=== PATIENT | male | born 1945 | race Caucasian/White ===

== ENCOUNTER 2023-12-19 17:28 | Inpatient (IN) | payer MEDICARE, BC, SELFPAY ==
[2023-12-19 17:34] VITALS: BP 128/91
[2023-12-19 17:47] VITALS: BP 95/74
[2023-12-19 18:01] LABS: Hematocrit 34.5 % (39.0-52.0); Hemoglobin 12.3 g/dL (13.0-18.0); Mean Corp Hgb Conc. 35.7 g/dL (33.0-37.0); Mean Corpuscular Hgb 32.4 pg (27.0-31.0); Mean Corpuscular Volume 90.8 fL (80.0-94.0); Mean Platelet Volume 9.5 fL (7.4-10.4); Platelet Count 255 10^3/uL (130-400); Red Cell Dist. Width 13.5 % (11.5-14.5); White Blood Cell Count 10.5 10^3/uL (4.8-10.8)
[2023-12-19 18:11] LABS: INR 1.11; PT 14.4 Sec (11.4-14.6)
[2023-12-19 18:13] LABS: APTT 40.7 Sec (23.4-35.0)
[2023-12-19 18:15] LABS: ALT (SGPT) 44 U/L (0-50); AST (SGOT) 46 U/L (17-59); Albumin 2.6 g/dl (3.5-5.0); Alkaline Phosphatase 85 U/L (38-126); Blood Urea Nitrogen 11 mg/dl (9-20); Calcium 8.5 mg/dl (8.4-10.2); Carbon Dioxide 29 mmol/L (22-30); Chloride 102 mmol/L (98-107); Direct Bilirubin 0.5 mg/dl (0.0-0.4); Glucose 154 mg/dl (70-99); Sodium 135 mmol/L (135-145); Total Bilirubin 0.8 mg/dl (0.2-1.3); Total Protein 5.8 g/dl (6.3-8.2); eGFR > 60.00
--- NOTE | 2023-12-19 18:19 | HPS.HSE ---
Family Physician
-
Family Physician: Bob Brunner
Chief Complaint
-
anorexia, weight loss and left leg pain
History of Present Illness
Mr. Khalil is a 78-year-old [id number] male with a past medical history significant for mitral regurgitation, coronary artery disease with stents, and diabetes who was in usual state of health until August when he noted
unintentional weight loss and anorexia. He was seen at the ID and was scheduled for colonoscopy and endoscopy this coming January. Patient denies fever, chills, nausea, vomiting, black tarry stools. Patient's last dental cleaning was in October 2023.
By December, patient reports a total of 30 pound weight loss, with continued anorexia and left leg pain. He was seen by his clutch mechanic, Dr. Weinstein, who recommended evaluation at [facility]. Patient was admitted to [facility] on
12/17/2023. Initial WBC was 17.1. Blood cultures were sent. No by report was available in transfer records. Patient reported sensitivity of his left great toe and ultrasound of left lower extremity was negative for DVT. A RICHARD was performed on
12/18 and reported EF of 60 to 65%, no left atrial appendage thrombus, and moderate mitral regurgitation. There is a 1.6 cm mobile mass noted on the anterior mitral valve leaflet prolapsing into the left atrium with a smaller mass noted on the
posterior leaflet. There was mild tricuspid regurgitation, no aortic stenosis and no aortic insufficiency. Patient was treated with vancomycin, ampicillin, and rifampin. Patient was transferred to [facility] 12/18 for further evaluation of
mitral valve endocarditis. Patient recalls left last heart catheterization performed in 2012.
Medical History
Past Medical History
Past Medical History: Reports CAD (prior stent (pt unable to recall vessel)), NIDDM (x 20+ years on insulin) and Valvular Disease (mitral regurgitation)
Past Surgical History: Reports Other (L total knee arthroscopy)
Social History
Tobacco: Former Smoker (quit 30 years ago)
Alcohol: None
Drug: None
Personal:
Living: With Family
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
Family History
Family History: Not pertinent
Allergies / Home Medications
Allergies reflects when Allergies were last updated in [employer].
Home Medications with original date entered in [employer]
Allergy/Medication List:
NKDA
Review of Systems
-
History Source: Patient
Constitutional: Reports See HPI
EENT: Reports No Symptoms
Respiratory: Reports No Symptoms
Cardiac: Reports No Symptoms
Abdomen/GI: Reports No Symptoms
: Reports No Symptoms
Musculoskeletal: Reports No Symptoms
Skin: Reports Other (left great toe sensitive)
Neurological: Reports No Symptoms
Endocrine: Reports No Symptoms
Hematologic/Lymphatic: Reports No Symptoms
Psych: Reports No Symptoms
Physical Exam
Vital Signs
Vital Signs
Temp Pulse Resp BP Pulse Ox
98.3 F 82 20 95/74 97
12/19/23 17:32 12/19/23 17:47 12/19/23 17:32 12/19/23 17:47 12/19/23 17:32
Physical Exam
General: No Apparent Distress, Comfortable, Conversant and Poor Appetite
HEENT: NormoCephalic, Anicteric, Moist mucous membranes, Good Dentition, Lamy Conjunctivae, No Ptosis, Nose Appears Normal, Ears Appear Normal and Neck Nontender
Respiratory: Clear
Cardiac: S1/S2, Regular Rhythm and Murmur (II/ HSM LSB 5th ICS>axillae)
Breast: N/A
GI: Soft, Non Tender, Non Distended, Normal Bowel Sounds and No Hepatosplenomegaly
Rectal: Deferred by Provider
Genito-urinary: Deferred by me
Musculoskeletal: No Clubbing, No Cyanosis, No Edema and Other (Left PT +1; no left great toe redness, only sensitivity)
Skin: Warm and Dry
Neuro: AO x 3, No Motor Deficits, Nonfocal/grossly intact and No Sensory Deficits
Hematologic/Lymphatic: No Lymphadenopathy
Psych: Calm and Intact Judgment/Insight
Laboratory Results
-
12/19/23 17:55
12/19/23 17:55
Laboratory Results
Total Bilirubin 0.8 mg/dl (0.2-1.3) 12/19/23 17:55
AST 46 U/L (17-59) 12/19/23 17:55
ALT 44 U/L (0-50) 12/19/23 17:55
Alkaline Phosphatase 85 U/L (38-126) 12/19/23 17:55
Data Reviewed
-
Diagnostic Radiology: Report Reviewed by me and Discussed with Physician
Ultrasound: Report Reviewed by me and Discussed with Physician
Lab Data: Discussed with Physician and Discussed with Nurse
Old Records: Reviewed
Impression/Plan
-
IMPRESSION:
78-year-old male with known coronary disease and diabetes, was transferred from [facility] on 12/19/2023 with mitral valve vegetation and moderate mitral regurgitation.
PLAN:
- Surgeon to review echo imaging and formulate plan with consultants and patient
- Follow-up on blood culture results from [facility] micro lab
- Consult to infectious disease
- Consult to CBC cardiology
- Probable need for preop cardiac catheterization
- routine pre op diagnostic studies ordered
[2023-12-19 18:32] LABS: Glucose - Point of Care 162 mg/dl (70-99)
[2023-12-19 18:59] VITALS: BP 119/71
[2023-12-19] MEDS: SENOKOT-S 1 TABLET PO (19:48)
[2023-12-19] MEDS: HEPARIN 5000 UNITS SC (19:48)
[2023-12-19] MEDS: TOPROL XL 12.5 MG PO (20:00)
[2023-12-19] MEDS: ROCEPHIN 2000 MG IV (20:58)
[2023-12-19] MEDS: STERILE WATER FOR INJECTION 20 ML IV (20:58)
[2023-12-19] MEDS: AMPICILLIN 108 MG IV (21:13)
[2023-12-19 22:26] VITALS: BP 110/62
[2023-12-19 22:26] LABS: Glucose - Point of Care 175 mg/dl (70-99)
--- NOTE | 2023-12-19 22:40 | PTCARENOTE ---
Received pt at handoff. AOX4. Tele- SR/ST. HR 80-100s. Assessment noted as documented. Pt c/o weakness. Ambulatory w/ an assist x1. Pt taken to CXR/panelipse via wheelchair and nursing staff. Pt w/ non-prod freq. cough. Sating 96% RA. Currently in
bed; call deshpande w/in reach.
[2023-12-20] VITALS (12 sets, daily range): BP systolic 87–122; BP diastolic 51–81; BMI 22.4
[2023-12-20] MEDS: HEPARIN 5000 UNITS SC ×3 (00:38→16:47)
[2023-12-20] MEDS: AMPICILLIN 108 MG IV ×3 (04:03→14:59)
[2023-12-20 05:00] LABS: Hematocrit 34.3 % (39.0-52.0); Hemoglobin 11.8 g/dL (13.0-18.0); Mean Corp Hgb Conc. 34.4 g/dL (33.0-37.0); Mean Corpuscular Hgb 32.2 pg (27.0-31.0); Mean Corpuscular Volume 93.5 fL (80.0-94.0); Mean Platelet Volume 9.8 fL (7.4-10.4); Platelet Count 260 10^3/uL (130-400); Red Blood Cell Count 3.67 10^6/uL (4.70-6.10); Red Cell Dist. Width 13.4 % (11.5-14.5); White Blood Cell Count 13.3 10^3/uL (4.8-10.8)
[2023-12-20 05:20] LABS: Blood Urea Nitrogen 12 mg/dl (9-20); Calcium 8.8 mg/dl (8.4-10.2); Carbon Dioxide 24 mmol/L (22-30); Chloride 104 mmol/L (98-107); Glucose 143 mg/dl (70-99); Potassium 3.9 mmol/L (3.5-5.1); Sodium 133 mmol/L (135-145); eGFR > 60.00
[2023-12-20] MEDS: VANCOCIN HCL 500 MG 100 IV ×2 (05:59→18:30)
--- NOTE | 2023-12-20 07:30 | W.PN.CT ---
Today's Communication / Plan
-
Plan:
-currently on Vanco, Ampicillin, and Ceftriaxone. Appreciate ID and Cardiology input
-follow blood cx result from [facility]
-plans for cath today and MVR tomorrow 12/21/[address] Cates
Assessment / Plan
-
IMPRESSION:
-78-year-old male with known coronary disease and diabetes, was transferred from [facility] on 12/19/2023 with mitral valve vegetation and moderate mitral regurgitation.
-anorexia, weight loss and left leg pain
-hx CAD with prior stents
-DM II
-Former smoker
Discussed patient care with: Nursing and Care Team
Subjective
-
Date of Service: December 20, 2023
Objective Data
-
Lab Results
12/20/23 04:27
12/20/23 04:27
PT 14.4 Sec (11.4-14.6) 12/19/23 17:55
INR 1.11 12/19/23 17:55
APTT 40.7 Sec (23.4-35.0) H 12/19/23 17:55
Vital Signs
Vital Signs
Temp Pulse Resp BP Pulse Ox
98.2 F 88 18 119/68 94
12/20/23 07:13 12/20/23 04:45 12/20/23 07:13 12/20/23 04:18 12/20/23 07:13
CT Intake/Output/Weight
12/19/23 12/20/23 12/20/23
18:59 06:59 18:59
Output Total 150 / 150
Balance -150 / -150
SaO2: 94
Physical Exam
-
General: AOx3
Cardiovascular: Regular rate & rhythm, Murmur (2/6 syst @ lsb) and No Rub
Respiratory: Clear
Extremities: No Edema (L foot is cooler to touch than R. on R: 2+ palpable DP and PT. on L: DP and PT are not palpable, both Dopplerable with sluggish signal)
Data Reviewed
-
Lab Results: Results Reviewed
Medications: Active Meds Reviewed
Chest X-Ray: Report Reviewed
ECG: Report Reviewed and Image Reviewed
[2023-12-20 07:56] LABS: Glucose - Point of Care 162 mg/dl (70-99)
[2023-12-20 08:49] LABS: Glycohemoglobin (HgbA1c) 6.6 % (4.0-5.6)
--- NOTE | 2023-12-20 09:38 | PHA.VAN.IN ---
Assessment
- Assessment
Renal Function: Unknown baseline
Concomitant Antimicrobials: ceftriaxone, ampicillin
Spoke with Gigi at [facility] and patient received the following prior to transfer:
Vanc 1500mg loading dose - 12/16 21:30
Vanc 1000mg Q12H x 3 doses - last dose 12/18 15:33
no levels drawn prior to transfer
Laboratory Tests
12/20/23
14:57
Random Vancomycin 12.5
Level drawn ~9H after previous dose of 500mg
Level may be low due to changes in dosing timing but appropriate for re-dosing for tonight
Plan
- Plan
Maintenance Regimen: continue Vanc 500mg Q12H
Monitoring: consider levels tomorrow evening following 4th dose of current regimen
Pharmacokinetics Vancomycin I
- -
Patient Age: 78
Patient Sex: Male
Vancomycin Day #: 4 (initiated on vancomycin at [facility])
Indication: Endocarditis
Requesting Provider: Noman Clark
Pertinent Antimicrobial Allergies:
NKDA
Height / Weight:
Height 5 ft 4 in
Actual Weight 59.2 kg
Pertinent Past Medical History: DM
- Vital Signs / Lab Results
Temp Pulse Resp BP Pulse Ox
98.2 F 82 18 106/65 94
12/20/23 07:13 12/20/23 08:00 12/20/23 07:13 12/20/23 07:11 12/20/23 07:37
Lab Results - Hematology
12/19/23 12/20/23
17:55 04:27
WBC 10.5 13.3 H
Lab Results - Chemistry
12/19/23 12/20/23
17:55 04:27
BUN 11 12
Creatinine 0.9 1.0
Albumin 2.6 L
[2023-12-20] MEDS: LANTUS 0.179999999999999993 UNITS SC (10:08)
[2023-12-20] MEDS: SENOKOT-S 1 TABLET PO (10:12)
[2023-12-20] MEDS: RANEXA EXTENDED RELEASE 500 MG PO (10:12)
[2023-12-20] MEDS: LOW STRENGTH ASPIRIN 81 MG PO (10:12)
[2023-12-20] MEDS: PROTONIX 40 MG PO (10:12)
[2023-12-20] MEDS: TOPROL XL 12.5 MG PO ×2 (10:12→19:39)
[2023-12-20] MEDS: ROCEPHIN 2000 MG IV ×2 (10:13→21:11)
[2023-12-20] MEDS: STERILE WATER FOR INJECTION 20 ML IV ×2 (10:13→21:11)
--- NOTE | 2023-12-20 10:42 | CON.VAS ---
Addendum entered and electronically signed by Franck Bustos MD 12/20/23 16:14:
Seen and examined with SUHAIL Casey. Agree with findings as noted below. As noted below patient has a mitral valve endocarditis or vegetation. Patient notes about a month ago had acute symptoms of coolness in his left foot. Now he notes pain in his
left great toe, not a constant pain but rather tenderness more so. Denies any rest pain at night. No tissue loss. He is not walking much secondary to his other health conditions and therefore does not report any claudication.
Cardiovascular risk factors include diabetes, coronary artery disease, history of tobacco use quit 30 years ago.
On exam/she is awake and alert. Head is normocephalic and atraumatic. Eyes are anicteric. Neck is soft without jugular venous distention. Breathing is unlabored. Abdomen is soft, nondistended, nontender. No pulsatile mass. Lower extremity
with 2+ femoral pulses palpable bilaterally. Right side with 2+ popliteal and 1+/2+ DP palpable. On the left side nonpalpable distally. The left foot is slightly cooler than the right. However it is pink. There is no rubor. Motor and sensory
function are fully intact. No tissue loss.
Noninvasive imaging reviewed. Left-sided SIL 0.41, right side within normal limits. Left TBI unobtainable (toe pressure 0). Profundofemoral velocity elevation 252 cm/s. However mid to distal superficial femoral artery with transition to
monophasic waveforms. Monophasic continuous Doppler waveforms at the posterior tibial artery as well.
Plan/ PAD. Given acute onset of symptoms raises concern for an embolic event. He has no limb threatening ischemia immediately currently. No acute need for intervention. However would favor CT angiogram of the aorta with runoff imaging to better
ascertain whether this was a thrombotic/clot phenomenon or whether there is a plaque related chronicity here. Cannot obtain the CT angiogram either postoperatively from his mitral valve procedure, or alternatively we can get it as an outpatient and
he can follow-up with me in the office in about a month. Please let me know if there is any change in his clinical exam in terms of the left foot postoperatively. In addition, would favor if possible harvesting right saphenous vein if needed as
opposed to left for his cardiac surgery in order to preserve left-sided vein for bypass. However obviously if needed for cardiac surgery then it is okay. Discussed with CT PA.
Original Note:
Consultation
Consultation Request
Date/Time Consultation Performed: 12/20/2023 1030
Requesting Provider: Pete Cates MD
Performing Provider: Celena Casey, HIGH RISK CASE MANAGER-C for Franck Bustos MD
Reason for Consultation: Left lower extremity foot pain accompanied with abnormal studies
Medical History
-
Chief Complaint: anorexia, weight loss and left leg pain
History of Present Illness:
This is a 78-year-old male with a past medical history significant for mitral regurgitation, coronary artery disease with PCI, and diabetes who reports unintentional weight loss of approximately 30 pounds and anorexia since August,. He
recently saw his teen counselor Dr. Weinstein, who recommended further evaluation at [facility], inpatient work up included RICHARD which demonstrated a 1.6 cm mobile mass noted on the anterior mitral valve leaflet prolapsing into the left
atrium with a smaller mass noted on the posterior leaflet, prompting transfer to [facility] for CT surgery evaluation. Accompanying chief complaint is an onset of left hallux/foot pain roughly a month ago with an intermittent coolness to
left foot. He endorses that left foot coolness is intermittent, and left hallux pain has greatly improved over the past 3-5 days. Since onset his left toe was tender/painful to palpation. He denies claudication or rest pain, although he does note
that he lives a sedentary lifestyle. Denies history of prior vascular procedures or seeing a vascular surgeon. Currently comfortable without complaints.
Past Medical History
Past Medical History: CAD (Reports of catheterization with PCI unclear of location), IDDM and Valvular Disease (mitral regurgitation)
Past Surgical History: Orthopedic (L total knee arthroscopy)
Social History
Tobacco: Former Smoker
Alcohol: None
Drug: None
Personal:
Living: With Family
Employment: Retired
Allergies / Home Medications
Allergy/AdvReac Type Severity Reaction Status Date / Time
No Known Allergies Allergy Unverified 12/19/23 17:43
�Medication �Instructions �Recorded �Confirmed �Type
Aspirin 81 mg PO DAILY 12/19/23 12/19/23 History
Lantus Solostar U-100 Insulin 18 units subcut (via wearable 12/19/23 History
injectr)
Ranexa 500 mg PO DAILY 12/19/23 12/19/23 History
Toprol XL 12.5 mg PO Q12H 12/19/23 12/19/23 History
insulin lispro 100 unit/mL 6 unit SC DIRECTED 12/19/23 12/19/23 History
subcutaneous pen
insulin lispro 100 unit/mL 10 unit SC DIRECTED 12/19/23 12/19/23 History
subcutaneous pen
Review of Systems
-
History Source: Patient
Constitutional: Reports Weight Loss and Fatigue
EENT: Reports No Symptoms
Respiratory: Reports No Symptoms
Cardiac: Reports No Symptoms
Vascular: Denies Leg Pain / Claudication, Numbness or Tingling
Abdomen/GI: Reports Anorexia
: Reports No Symptoms
Musculoskeletal: Reports Other (Left hallux pain intermittently currently, but does endorse pain in the entire left leg initially starting roughly a month ago)
Skin: Reports No Symptoms (Denies open wounds)
Neurological: Reports No Symptoms
Endocrine: Reports No Symptoms
Physical Exam
Vital Signs
Temp Pulse Resp BP Pulse Ox
98.2 F 82 18 106/65 94
12/20/23 07:13 12/20/23 08:00 12/20/23 07:13 12/20/23 07:11 12/20/23 10:02
Lab Results
12/20/23 04:27
12/20/23 04:27
Physical Exam
General: No Apparent Distress and Comfortable
HEENT: Normocephalic, Anicteric and Atraumatic
Respiratory: Non Labored Respirations
Cardiac: Negative JVD
GI: Soft, Non Tender and Non Distended
Musculoskeletal: No Edema
Skin: Warm and Dry
Neuro: AO x 3
Pulses: Bilateral Femoral: +2, Left Popliteal: Doppler (Nonpalpable), Right Popliteal: +2, Right Dorsalis Pedis: +1 (Left DP absent) and Bilateral Posterior Tibial: Doppler
Assessment / Plan
-
Assessment: 78-year-old male with reports of weight loss and anorexia transferred from [facility] for CT surgery workup for mitral valve endocarditis suspected peripheral arterial disease versus thromboembolic event to left lower extremity as
evidenced by arterial noninvasives and left TBI of [address] angio chest/abdomen/pelvis pending, may require CT angio aorta with bilateral lower extremity runoff at later date given recent dye load
Surgical plan/recommendations pending results of CT angio
--- NOTE | 2023-12-20 10:48 | CON.CAR ---
Addendum entered and electronically signed by Royce Bullard DO 12/20/23 12:47:
Attestation: I have seen and examined the patient. I can confirm Ms. Silver findings and I agree with her assessment and plan as documented.
78-year-old gentleman transferred from [facility] with new diagnosis of infectious endocarditis.
The patient has a known history of severe coronary artery disease including STOCKKEEPER of the ostial LAD with significant disease in the circumflex system which is dominant.
He also has a known history of moderate to severe mitral valve regurgitation.
He has been transferred for likely surgical management of his mitral valve disease and endocarditis.
Cardiology has been asked to consult as well as to perform diagnostic cardiac catheterization for clarification of coronary anatomy prior to surgery.
On exam, the patient is alert awake and oriented x 3.
HEENT exam shows no evidence of JVD or thyromegaly. There are no petechiae on his palate or conjunctival hemorrhage.
Cardiac exam is notable for a soft holosystolic murmur consistent with mitral regurgitation. Rate and rhythm are regular.
Lungs are clear to auscultation bilaterally without wheezes rales or rhonchi.
Abdomen is soft, nontender, nondistended.
Impression:
Mitral valve endocarditis
Moderate to severe mitral valve regurgitation
Severe coronary artery disease
Insulin-dependent diabetes mellitus
Plan:
Proceed to cardiac catheterization laboratory for diagnostic coronary angiography.
Continue antibiotics for infectious endocarditis.
Anticipate surgical intervention, likely with concomitant bypass based off of cardiac catheterization.
Continue metoprolol, aspirin and ranolazine.
Original Note:
Consultation
Consultation Request
Date/Time Consultation Requested: 12/19/23 1519
Date/Time Consultation Performed: 12/20/23 1040
Requesting Provider: Elo Rutledge
Performing Provider: Stephanie LINARES for Dr. Bullard
Reason for Consultation: endocarditis
Medical History
-
Chief Complaint: endocarditis
History of Present Illness:
78 y/o male with significant CAD with hx stenting, hypertension, dyslipidemia, diabetes, mitral regurgitation who has had poor intake and weight loss recently. He was sent to ER at [facility] and had elevated WBC. Blood cultures sent. A RICHARD showed 1.6 cm
mobile mass noted on the anterior mitral valve leaflet prolapsing into the left atrium with a smaller mass noted on the posterior leaflet. ABX started. He is transferred here for CT surgery. Apparently, he also has had left leg pain and has no DVT
on u/s, but vascular is consulted. Dr. Weinstein is his instructor robotics.
Past Medical History
Past Medical History: CAD, HTN, Hypercholesterolemia, IDDM and Valvular Disease
Social History
Tobacco: Former Smoker
Family History
Family History: Reviewed & Not Pertinent
Allergies / Home Medications
Allergy/AdvReac Type Severity Reaction Status Date / Time
No Known Allergies Allergy Unverified 12/19/23 17:43
�Medication �Instructions �Recorded �Confirmed �Type
Aspirin 81 mg PO DAILY 12/19/23 12/19/23 History
Lantus Solostar U-100 Insulin 18 units subcut (via wearable 12/19/23 History
injectr)
Ranexa 500 mg PO DAILY 12/19/23 12/19/23 History
Toprol XL 12.5 mg PO Q12H 12/19/23 12/19/23 History
insulin lispro 100 unit/mL 6 unit SC DIRECTED 12/19/23 12/19/23 History
subcutaneous pen
insulin lispro 100 unit/mL 10 unit SC DIRECTED 12/19/23 12/19/23 History
subcutaneous pen
Review of Systems
-
History Source: Patient
All other systems: Negative unless noted
Constitutional: Weight Loss and Other (poor PO intake)
Physical Exam
Vital Signs
Temp Pulse Resp BP Pulse Ox
98.2 F 82 18 106/65 94
12/20/23 07:13 12/20/23 08:00 12/20/23 07:13 12/20/23 07:11 12/20/23 10:02
Lab Results
12/20/23 04:27
12/20/23 04:27
Physical Exam
General: Well Developed, Well Nourished and No Apparent Distress
HEENT: Normocephalic and Anicteric
Respiratory: Clear and Non Labored Respirations
Cardiac: Regular Rhythm and Murmur (III/ systolic)
Musculoskeletal: No Edema
Skin: Warm and Dry
Neuro: AO x 3
Psych: Calm
Impression / Plan
-
Mitral valve vegetation/Endocarditis, moderate mitral regurgitation:
-high-risk diagnosis
-RICHARD as below
-on IV ABX. ID consulted.
-tentative plan for surgery tomorrow per CT surgery team
-diagnostic cath today
CAD with hx stenting:
-multivessel CAD with occluded and collateralized LAD and occluded nondominant RCA with significant lesions in branches-only of the left circ system cath 2017. Diagnostic cath today in prep for surgery.
-denies any CP or SOB
-on ASA, Ranexa, metoprolol
-per OP notes, limitations with statin with elevated liver enzymes
HTN:
-continue BB and monitor
DM:
-on insulin
Data Reviewed
-
EKG: Tracing Personally Visualized and interpreted (SR 78 BPM PAC's)
Radiology: Report Reviewed by me (CXR: No acute cardiopulmonary process.)
Medical Tests (Nuc Med, Echo etc): Report Reviewed by me (RICHARD 12/18 and reported EF of 60 to 65%, no left atrial appendage thrombus, and moderate mitral regurgitation. There is a 1.6 cm mobile mass noted on the anterior mitral valve leaflet
prolapsing into the left atrium with a smaller mass noted on the posterior leaflet. )
Labs: Labs Reviewed by me
--- NOTE | 2023-12-20 11:31 | CM ---
Chart reviewed. Patient is independent of ADLS, lives with his in a ST, has been recently ambulating with a rolling walker that a neighbor gave home, total of 5 MAYANK. Reviewed preoperative and postoperative instructions, along with
restrictions and showering instructions. Gave patient a Cardiac Surgery Book. Patient is outside of the driving radius of CT Transitional RN. Patient will need VN. Plan is for the patient to return home VN. CM to follow
--- NOTE | 2023-12-20 12:25 | ITS.CL.CATH ---
Absence Management Consultant - Catheterization
Cardiac Catheterization
Procedure Report:
CARDIAC CATHETERIZATION REPORT
Date of Procedure: 12/20/2023
Referring: Pete Cates M.D.
INDICATION: Mitral valve endocarditis, known coronary artery disease, preop.
PROCEDURE:
1. Coronary angiography.
ACCESS:
6 Serbian right radial artery.
CATHETERS:
1. 5 Serbian JR4.
2. 5 Serbian JL 3.5.
HEMODYNAMIC DATA
Weight (kg): 59.0
AO (s/d/x, mmHg): 87/55/67
LV (s/x mmHg): Not obtained.
LEFT VENTRICULOGRAPHY: Not performed.
CORONARY ANGIOGRAPHY
Dominance: Left.
Left Main: Short, bifurcating vessel. There are minor luminal irregularities.
LAD: Chronically totally occluded at its origin. The distal vessel appears to adequately fill from left to left collaterals.
Ramus: Congenitally absent.
Circumflex: Large size, dominant vessel giving rise to 3 obtuse marginals before terminating as a left posterior descending artery. There is a 60% lesion in the mid vessel, and between OM1 and OM 2. There is a 70% lesion in the ostium of OM1.
OM 2 is relatively small vessel with a 90% lesion in its midsection. The vessel is only 1 cm in diameter. OM 3 is a large vessel supplying the majority of the inferolateral wall. There is an 80% lesion in the mid section of OM 3 before it
bifurcates into 2 smaller daughter branches. There is a 50% lesion at the base of the LPDA.
RCA: Small size, nondominant vessel. The vessel is chronically totally occluded at its origin.
INTERVENTION(S)
None.
Closure Device: Vascular band.
Radiation (mGy): 195.62
DAP (cm2.Gy): 11.5096
Fluoroscopy time (minutes): 1.4
Sedation time (minutes): 20
CONCLUSIONS
1. Left dominant circulation with chronic total occlusion of the ostial LAD, a 60% lesion in the mid circumflex in between OM1 and OM 2, a 70% lesion in the ostium of OM1, and 90% lesion in a diminutive OM 2, and 80% lesion in the mid section of OM
3, proximal to its bifurcation into 2 significant daughter branches and a 50% lesion at the base of the L PDA. The RCA is a chronically totally occluded nondominant vessel.
2. Mitral valve endocarditis.
RECOMMENDATIONS:
1. Expectant management after cardiac catheterization via right radial approach.
2. Limited weight bearing on the right wrist for one week.
3. Proceed with surgical workup for mitral valve endocarditis including concomitant coronary artery bypass grafting.
Copy to: Pete Cates M.D., Darryn Weinstein M.D., Bob Brunner M.D.
Royce Bullard DO, FACC, FACP
[2023-12-20] MEDS: NSS 1000 IV (12:53)
[2023-12-20 13:11] LABS: Glucose - Point of Care 125 mg/dl (70-99)
--- NOTE | 2023-12-20 14:24 | W.PN.UPDATE ---
Update Note
Progress Note Update
I met with Mr. Khalil at the bedside. We went over his pathology including his mitral valve endocarditis with thromboembolic phenomenon seen on his CT imaging studies. And newly diagnosed coronary artery disease involving a ROBOTIC WELD TECHNICIAN lesion to his
proximal LAD and significant circumflex disease. We discussed the risk and benefits of open heart surgery I quoted him a mortality risk of approximately 5 to 8% within 30 days given the fact that he now requires CABG plus mitral valve intervention.
The plan to be to replace his mitral valve with a bioprosthetic and perform multiple bypasses x 3 at the time of operation. Given his risk of stroke, I will also plan to exclude left atrial appendage at time of surgery. We went over his operation
in detail. All questions were answered. He accepted the risks and so we will plan to proceed for tomorrow. His preliminary cultures remains negative. I plan to send intraop cultures as well.
aSgar Virk MD, MS
Cardiac Surgeon
[facility]
[2023-12-20 15:53] LABS: Vancomycin Random 12.5 ug/ml
--- NOTE | 2023-12-20 16:40 | CON.ID ---
Consultation
-
Date/Time Consultation Requested: 12/19/2023 1841
Date/Time Consultation Performed: 12/20/2023 1600
Requesting Provider: Rosalina
Performing Provider: Dr. Clark
Reason for Consultation: Endocarditis
Chief Complaint / Past History
History of Present Illness
Rafael Khalil is a 78-year-old man being evaluated in infectious disease consult in regards to suspected infectious endocarditis. History is obtained from chart review, along with patient interview.
Patient reports that approximate 1 month ago he developed some left hallux discomfort and thought that his left leg below the knee felt cold. He initially went to [facility] and he reports that nothing was found at that time. He
subsequently went to the [facility] and he had 'several scans' which were abnormal, and ultimately was sent into the ER at [facility] for further evaluation. According to history obtained there he has had a 2 to 3-month history of anorexia
along with progressive generalized weakness with a 30 pound weight loss over the same timeframe. In September she reported a cough with scant sputum which lasted approximately 2 to 3 weeks. He was evaluated at the [facility] with a CAT scan with contrast
which showed multiple abnormalities in the spleen and kidneys suspicious for embolic phenomena.
Workup in [facility] revealed a leukocytosis. A RICHARD was performed which revealed a 1.6 cm mobile mass on the anterior mitral valve leaflet. He has been sent on to [facility] for definitive cardiac care.
The patient reports no prior history of fevers or chills. He reports dental cleaning in October 2023.
Past History
Additional Past Medical History:
Mitral regurgitation
Angina
HTN
Dyslipidemia
DM type II
Renal insufficiency
Hx anemia
Additional Past Surgical History:
PCTA with stenting
Allergy History:
No Known Allergies Allergy (Unverified 12/19/23 17:43)
Medications Reviewed: Yes
Current Antibiotics:
Ampicillin
Ceftriaxone
Vancomycin
Social History
Tobacco: Former Smoker
Alcohol: None
Drug: None
Personal:
Living: With Family
Employment: Retired
Family History
Family History: Not Pertinent
Review of Systems
Vital Signs
Temp Pulse Resp BP Pulse Ox
97.5 F 69 18 90/55 98
12/20/23 15:51 12/20/23 14:00 12/20/23 15:51 12/20/23 13:30 12/20/23 15:51
Physical Exam
Physical Exam
Constitutional: No Acute Distress, Comfortable and Non-toxic
Head: Normocephalic
Eyes: No Conjunctival Hemorrhage and Sclera Anicteric
Pharynx: Benign
Oral: Negative No Thrush or No Ulcers
Cardiovascular: Regular Rate, S1/S2 and Murmur; Negative S3/S4
Pulmonary: Clear; Negative Wheezes, Rales or Rhonchi
Gastrointestinal: Soft, Non Tender, Non Distended, Normal Bowel Sounds, No Rebound and No Guarding
Extremities: Splinter Hemorrhage (Several nailbeds distally) and Janeway Lesions (Plantar surface of feet)
Skin: Warm and Dry; Negative Rash or Jaundice
Neurological: Awake and Alert
Psychological: Calm
.
Lab / Diagnostic Study Results
12/20/23 04:27
12/20/23 04:27
PT 14.4 Sec (11.4-14.6) 12/19/23 17:55
INR 1.11 12/19/23 17:55
Microbiology Results
Micro:
12/20/23 05:15 Blood Culture - Pending
Blood/Venous
12/20/23 04:27 Blood Culture - Pending
Blood/Venous
Assessment / Plan
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
Suspected embolic event to lower extremity
Left hallux pain
Leukocytosis
Mitral regurgitation
Angina
HTN
Dyslipidemia
DM type II
Renal insufficiency
Hx anemia
Recommendations:
Cultures currently pending. 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
Cultures from [facility] are pending. Cultures have also been obtained here at [place], but patient was already on multiple antibiotics and yield will likely be low.
Patient tentatively for CT surgery tomorrow.
Continue with ceftriaxone and vancomycin for now.
Further ampicillin can be discontinued.
Check ESR and CRP in AM.
Care Review
Plan reviewed with: Physician (CT Surgery)
[2023-12-20] MEDS: SENOKOT-S PO (16:48)
[2023-12-20 17:31] LABS: Glucose - Point of Care 177 mg/dl (70-99)
[2023-12-20] MEDS: NOVOLOG FLEXPEN-MODERATE RESISTANCE 1 UNITS SC (18:30)
--- NOTE | 2023-12-20 18:54 | W.PN.UPDATE ---
Update Note
Progress Note Update
Procedure Type:�CABG + MVR
PERIOPERATIVE OUTCOME ESTIMATE %
Operative Mortality 12.3%
Morbidity & Mortality 31.2%
Stroke 4.83%
Renal Failure 12.1%
Reoperation 8.25%
Prolonged Ventilation 28.4%
Deep Sternal Wound Infection 0.485%
Long Hospital Stay (>14 days) 36%
Short Hospital Stay (<6 days)* 4.08%
Clinical Summary
Planned Surgery: CABG + MVR, Urgent, First cardiovascular surgery
Demographics: 78 year old, male, 59kg, 163cm, BMI: 22.2 kg/m�
Lab Values: Creatinine: 1 mg/dL, Hematocrit: 34.3%, WBC Count: 13.3 10�/�L, Platelet Count: 626694 cells/�L
PreOp Medications: Insulin diabetes control
Substance Abuse: Former smoker
Risk Factors / Comorbidities: Insulin-dependent Diabetes Mellitus, Active Endocarditis
Coronary Artery Disease: 3 vessels diseased, No coronary symptoms
Valve Disease: Moderate MR
--- NOTE | 2023-12-20 19:16 | PTCARENOTE ---
Pt had a cardiac cath done via right radial artery. Radial band removed without problem, no sign of bleeding or hematoma. Pt off unit for multiple pre op tests. Pt has a poor appetite, passed a loose stool but is receiving multiple IV antibiotics.
Telemetry shows sinus rhythm. Pt is easily tired with activity but walks with a fairly steady gait. Plan for CVOR prep tonight.
[2023-12-20 21:54] LABS: Glucose - Point of Care 109 mg/dl (70-99)
--- NOTE | 2023-12-20 23:20 | PTCARENOTE ---
Pt clipped and bed bath completed for CVOR tomorrow AM. Pt aware of NPO status after midnight. Tele- SR. Pt currently has no c/o at this time. Currently in bed; call jeramy w/in reach.
[2023-12-21] VITALS (23 sets, daily range): BP systolic 77–138; BP diastolic 50–87; BMI 22.4
[2023-12-21 03:06] LABS: Hematocrit 32.8 % (39.0-52.0); Hemoglobin 11.5 g/dL (13.0-18.0); Mean Corp Hgb Conc. 35.1 g/dL (33.0-37.0); Mean Corpuscular Hgb 31.9 pg (27.0-31.0); Mean Corpuscular Volume 90.9 fL (80.0-94.0); Mean Platelet Volume 9.4 fL (7.4-10.4); Platelet Count 236 10^3/uL (130-400); Red Blood Cell Count 3.61 10^6/uL (4.70-6.10); Red Cell Dist. Width 13.6 % (11.5-14.5); White Blood Cell Count 11.5 10^3/uL (4.8-10.8)
[2023-12-21 03:21] LABS: Erythrocyte Sed Rate 52 mm/hour (0-20)
[2023-12-21 03:33] LABS: Blood Urea Nitrogen 9 mg/dl (9-20); Calcium 8.5 mg/dl (8.4-10.2); Carbon Dioxide 25 mmol/L (22-30); Chloride 103 mmol/L (98-107); Estimated Creatinine Clearance 51 ml/min; Glucose 112 mg/dl (70-99); Potassium 3.7 mmol/L (3.5-5.1); Sodium 133 mmol/L (135-145); eGFR > 60.00
[2023-12-21] MEDS: VANCOCIN HCL 500 MG 100 IV ×2 (04:56→19:39)
--- NOTE | 2023-12-21 05:40 | PTCARENOTE ---
Second complete bed bath performed. Weight and labs obtained. B/l BPs obtained. Pt cleansed w/ CHG wipes.
[2023-12-21] MEDS: MAGNESIUM OXIDE 500 MG PO (05:51)
[2023-12-21] MEDS: LOPRESSOR 25 MG PO (05:51)
[2023-12-21] MEDS: PROTONIX 40 MG PO (05:51)
[2023-12-21] MEDS: BACTROBAN 2% OINTMENT 1 APPLIC NASAL ×2 (05:52→20:13)
--- NOTE | 2023-12-21 06:19 | W.CVOR.SURPR ---
CVOR Surgeon Immed Pre Op
-
I have examined this patient prior to performance of the scheduled procedure.
The patient's condition is unchanged from the time of the dictated/written History and
Physical and the patient is able to undergo the scheduled procedure.
High risk MVR (biological) + CABG + DEEPAK E
[2023-12-21 06:30] LABS: Glucose - Point of Care 139 mg/dl (70-99)
[2023-12-21 08:01] LABS: Urine Albumin Trace (Neg - Trace); Urine Bilirubin Negative (Negative); Urine Character Clear (Clear); Urine Color Yellow; Urine Glucose Negative (Negative); Urine Ketone Trace (Negative); Urine Leukocyte Negative (Negative); Urine Nitrite Negative (Negative); Urine Occult Blood 3+ (Negative); Urine Specific Gravity 1.015 (<1.030); Urine Urobilinogen Negative (Neg - 1+)
[2023-12-21 08:12] LABS: ACT+ - POC 101 Seconds (82-134)
[2023-12-21 08:13] LABS: Urine Red Blood Cell 16-20 /HPF (0-2)
[2023-12-21 08:14] LABS: B.E. - POC -1.5 mmol/L; Glucose - POC 128 mg/dl (65-99); HCO3 - POC 23 mmol/L (21-29); Hematocrit - POC 28 % PCV (42-52); Hemodilution- POC No; Hemoglobin Calculated - POC 9.5; O2 Saturation %Calculated-POC 99.9 5 (92-96); PCO2 - POC 39 mmHg (35-45); PO2 - POC 277 mmHg (80-100); POC Comment PRE; Potassium - POC 3.1 mmol/L (3.6-5.0); Sodium - POC 140 mmol/L (135-145); pH - POC 7.39 (7.35-7.45)
[2023-12-21 08:15] LABS: Urine Bacteria Moderate (Negative); Urine Hyaline Cast 0-2 /LPF (0-2); Urine Squamous Cell 0-2 /LPF (Few)
--- NOTE | 2023-12-21 08:43 | PHA.VAN.FU ---
Vancomycin Assessment / Plan
- Assessment
Renal Function: Stable
WBC's are: Trending Down
In the past 24 hrs, patient has been: Afebrile
Concomitant Antimicrobials: ceftriaxone
- Dosing Plan
Continue: Vanc 500mg Q12H
- Monitoring Plan
Peak Level: 12/20 20:30
Trough Level: 12/21 05:30
Monitoring Comments: levels to be drawn after 4th dose of current regimen
- Follow Up
Pharmacy will continue to follow.
Vancomycin Follow UP
- -
Patient Age: 78
Patient Sex: Male
Vancomycin Day #: 5 (initiated on vancomycin at [facility])
Indication: Endocarditis
Requesting Provider: Noman Clark
Pertinent Antimicrobial Allergies:
NKDA
Height / Weight:
Height 5 ft 4 in
Actual Weight 59.2 kg
Pertinent Past Medical History: DM
- Vital Signs / Lab Results
Temp Pulse Resp BP Pulse Ox
97.8 F 88 16 118/72 94
12/21/23 02:52 12/21/23 05:51 12/21/23 02:52 12/21/23 05:51 12/21/23 02:52
Lab Results - Hematology
12/19/23 12/20/23 12/21/23
17:55 04:27 02:59
WBC 10.5 13.3 H 11.5 H
Lab Results - Chemistry
12/19/23 12/20/23 12/21/23
17:55 04:27 02:59
BUN 11 12 9
Creatinine 0.9 1.0 1.0
Estimated Creat Clear 51
Albumin 2.6 L
Lab Results - Urine
12/21/23
07:30
Urine Nitrite (Reflex) Negative
Leukocyte Esterase Rfl Negative
Ur Squamous Epith Cells 0-2
Microbiology Results
12/20/23 05:15 Blood Culture - Preliminary
Blood/Venous No Growth in 24 hours- Final report to follow
12/20/23 04:27 Blood Culture - Preliminary
Blood/Venous No Growth in 24 hours- Final report to follow
Therapeutic Drug Monitoring
Random Vancomycin 12.5 ug/ml 12/20/23 14:57
--- NOTE | 2023-12-21 09:17 | CM ---
pt in OR today, cm to follow.
[2023-12-21 09:52] LABS: ACT+ - POC 545 Seconds (82-134)
[2023-12-21 10:21] LABS: Glucose - POC 131 mg/dl (65-99); HCO3 - POC 26 mmol/L (21-29); Hematocrit - POC 20 % PCV (42-52); Hemodilution- POC Yes; Hemoglobin Calculated - POC 6.9; Ionized Calcium - POC 0.93 mmol/L (1.12-1.27); PCO2 - POC 31 mmHg (35-45); PO2 - POC 482 mmHg (80-100); POC Comment CPB; Potassium - POC 5.1 mmol/L (3.6-5.0); Sodium - POC 137 mmol/L (135-145); pH - POC 7.53 (7.35-7.45)
[2023-12-21 10:23] LABS: ACT+ - POC 504 Seconds (82-134)
[2023-12-21 10:53] LABS: Glucose - POC 144 mg/dl (65-99); HCO3 - POC 27 mmol/L (21-29); Hematocrit - POC 23 % PCV (42-52); Hemodilution- POC Yes; Ionized Calcium - POC 1.02 mmol/L (1.12-1.27); O2 Saturation %Calculated-POC 99.9 5 (92-96); PCO2 - POC 36 mmHg (35-45); PO2 - POC 266 mmHg (80-100); POC Comment CPB; Potassium - POC 4.5 mmol/L (3.6-5.0); Sodium - POC 139 mmol/L (135-145); pH - POC 7.48 (7.35-7.45)
[2023-12-21 10:53] LABS: ACT+ - POC 558 Seconds (82-134)
[2023-12-21 11:24] LABS: B.E. - POC 1.9 mmol/L; Glucose - POC 151 mg/dl (65-99); HCO3 - POC 25 mmol/L (21-29); Hematocrit - POC 22 % PCV (42-52); Hemodilution- POC Yes; Hemoglobin Calculated - POC 7.6; Ionized Calcium - POC 0.99 mmol/L (1.12-1.27); O2 Saturation %Calculated-POC 99.9 5 (92-96); PCO2 - POC 34 mmHg (35-45); PO2 - POC 277 mmHg (80-100); POC Comment CPB; Potassium - POC 5.1 mmol/L (3.6-5.0); Sodium - POC 139 mmol/L (135-145); pH - POC 7.48 (7.35-7.45)
[2023-12-21 11:26] LABS: ACT+ - POC 523 Seconds (82-134)
[2023-12-21 11:58] LABS: Glucose - POC 124 mg/dl (65-99); HCO3 - POC 26 mmol/L (21-29); Hematocrit - POC 25 % PCV (42-52); Hemodilution- POC Yes; Hemoglobin Calculated - POC 8.4; Ionized Calcium - POC 1.05 mmol/L (1.12-1.27); O2 Saturation %Calculated-POC 99.9 5 (92-96); PCO2 - POC 34 mmHg (35-45); PO2 - POC 266 mmHg (80-100); POC Comment WARM; Sodium - POC 141 mmol/L (135-145); pH - POC 7.48 (7.35-7.45)
[2023-12-21 11:59] LABS: ACT+ - POC 489 Seconds (82-134)
[2023-12-21 12:20] LABS: B.E. - POC 5.7 mmol/L; Glucose - POC 129 mg/dl (65-99); HCO3 - POC 29 mmol/L (21-29); Hematocrit - POC 26 % PCV (42-52); Hemodilution- POC Yes; Hemoglobin Calculated - POC 8.8; Ionized Calcium - POC 0.99 mmol/L (1.12-1.27); O2 Saturation %Calculated-POC 99.9 5 (92-96); PCO2 - POC 34 mmHg (35-45); PO2 - POC 246 mmHg (80-100); POC Comment CPB; Potassium - POC 4.5 mmol/L (3.6-5.0); Sodium - POC 142 mmol/L (135-145); pH - POC 7.53 (7.35-7.45)
[2023-12-21 12:24] LABS: ACT+ - POC 583 Seconds (82-134)
[2023-12-21 13:00] LABS: B.E. - POC 1.9 mmol/L; Glucose - POC 118 mg/dl (65-99); HCO3 - POC 24 mmol/L (21-29); Hematocrit - POC 26 % PCV (42-52); Hemodilution- POC Yes; Ionized Calcium - POC 1.76 mmol/L (1.12-1.27); PCO2 - POC 27 mmHg (35-45); PO2 - POC 350 mmHg (80-100); POC Comment CPB; Potassium - POC 4.5 mmol/L (3.6-5.0); Sodium - POC 142 mmol/L (135-145); pH - POC 7.56 (7.35-7.45)
[2023-12-21 13:01] LABS: ACT+ - POC 476 Seconds (82-134)
[2023-12-21 13:17] LABS: ACT+ - POC 112 Seconds (82-134)
[2023-12-21 13:19] LABS: B.E. - POC 0.2 mmol/L; Glucose - POC 121 mg/dl (65-99); HCO3 - POC 24 mmol/L (21-29); Hematocrit - POC 27 % PCV (42-52); Hemodilution- POC Yes; Ionized Calcium - POC 1.21 mmol/L (1.12-1.27); O2 Saturation %Calculated-POC 99.8 5 (92-96); PCO2 - POC 36 mmHg (35-45); PO2 - POC 233 mmHg (80-100); POC Comment POST; Potassium - POC 4.1 mmol/L (3.6-5.0); Sodium - POC 143 mmol/L (135-145); pH - POC 7.44 (7.35-7.45)
--- NOTE | 2023-12-21 14:06 | CON.INTV ---
Consultation
Consultation Request
Date/Time Consultation Requested: 12/21/2023
Date/Time Consultation Performed: 12/21/2023
Requesting Provider: Dr. Cates
Performing Provider: Dr. Chapo Varela
Reason for Consultation: Status post coronary artery bypass and MVR
Medical History
-
History of Present Illness:
78-year-old man with past medical history significant for mitral regurgitation, coronary artery disease with a stent, type 2 diabetes. He was noted to have 30 pound weight loss due to decreased oral intake. He was evaluated at [facility]. Echocardiogram showed a 1.6 cm mobile mass on the anterior mitral valve leaflet prolapsing into the left atrium with a smaller mass noted in the posterior leaflet. Initially treated with antibiotics.
He was transferred to [facility] for evaluation of mitral valve endocarditis.
Underwent coronary artery bypass and mitral valve replacement.
Currently in the critical care unit, intubated, sedated. Just arrived to the CVICU from the operating room
Records reviewed.
Past Medical History
Past Medical History: Other (See assessment and plan)
Social History
Tobacco: Former Smoker (Quit 30 years ago)
Alcohol: None
Drug: None
Personal:
Living: With Family
Family History
Family History: Reviewed & Not Pertinent
Allergies / Home Medications
Allergies
Allergy/AdvReac Type Severity Reaction Status Date / Time
No Known Allergies Allergy Unverified 12/19/23 17:43
Home Medications
�Medication �Instructions �Recorded �Confirmed �Last Taken �Type
Aspirin 81 mg PO DAILY 12/19/23 12/19/23 12/19/23 09:00 History
Lantus Solostar U-100 Insulin 18 units subcut (via wearable 12/19/23 12/19/23 09:00 History
injectr)
Ranexa 500 mg PO DAILY 12/19/23 12/19/23 12/19/23 09:00 History
Toprol XL 12.5 mg PO Q12H 12/19/23 12/19/23 12/19/23 09:00 History
insulin lispro 100 unit/mL 6 unit SC DIRECTED 12/19/23 12/19/23 Unknown History
subcutaneous pen
insulin lispro 100 unit/mL 10 unit SC DIRECTED 12/19/23 12/19/23 Unknown History
subcutaneous pen
Review of Systems
-
Unable to Obtain full review of systems at this time due to: Patient Intubation
Vitals / Labs / Diagnostic Testing
Vital Signs
Temp Pulse Resp BP Pulse Ox
97.8 F 88 16 118/72 94
12/21/23 02:52 12/21/23 05:51 12/21/23 02:52 12/21/23 05:51 12/21/23 02:52
Microbiology
12/21/23 11:18 Valve Fungal Culture - Preliminary
Culture in progress.
Positive cultures are reported as soon as detected.
Final report to follow in four to five weeks.
12/20/23 05:15 Blood/Venous Blood Culture - Preliminary
No Growth in 24 hours- Final report to follow
12/20/23 04:27 Blood/Venous Blood Culture - Preliminary
No Growth in 24 hours- Final report to follow
Diagnostic Testing:
Physical Exam
-
HEENT: Normocephalic and Other (ET tube in place without secretions)
Cardiovascular: S1/S2
Respiratory: Clear, Non-Labored Respirations and Other (Chest tube in place. No excessive drainage. No air leak.)
GI: Soft and Non Distended
Neurology: Other (Sedated. Mechanical ventilation.)
Skin: Warm
General: Comfortable
Assessment
-
78-year-old man who was transferred from [facility] with weight loss of 30 pounds. Found to have mitral valve vegetations/endocarditis. Transferred to surgical specialty center to [facility] for evaluation. Subsequently he
was evaluated by CT surgery. Given endocarditis with thromboembolic phenomena, coronary artery disease he was offered mitral valve replacement with coronary artery bypass.
Status post Coronary artery bypass grafting x 4 with LAD coronary endarterectomy [CAZARES in situ to proximal LAD sequential to mid/distal LAD, [id number]]
Chordal sparing mitral valve replacement [29 mm biological valve] with autologous pericardial patch at the [place] A3 to P3 region 12/21/2023
Mitral valve endocarditis: Cultures negative so far.
Postoperative mechanical ventilation
Postoperative anemia
Weight loss secondary to above
Mitral valve endocarditis-moderate to severe mitral valve regurgitation.
Severe coronary artery disease
Insulin-dependent diabetes
Assessment and plan:
He is doing well postop-currently on mechanical ventilation and appears comfortable.
ABG reviewed: Pending
Continue SIMV mode with no change
Spontaneous breathing trial per protocol once sedation wears off.
Anemia noted-no evidence of acute bleeding
Follow H&H serially
Hemodynamics -acceptable on low-dose Levophed.
On dobutamine.
Follow urinary output.
Follow hemodynamics
Wean off as able
So far adequate urinary output.
Follow fever curve and leukocytosis
Continue antibiotics per infectious disease
Follow culture
Chest tube with no excessive drainage-no air leak.
Chest x-ray reviewed: Pending
Remain nothing by mouth
Head of the bed elevation
Glycemic control per protocol
DVT prophylaxis when safe from the surgical perspective.
Critical care statement: A total of 32 minutes of critical care time was provided for this patient today. This includes management of unstable vital signs, evaluation of the patient at bedside, reviewing the patient's pertinent medical records
including ventilator settings, arterial blood gases, radiographs, microbiology, laboratory evaluations and discussion with primary team, critical care nursing, and respiratory therapy.
Imaging reviewed:
--- NOTE | 2023-12-21 14:16 | W.PN.UPDATE ---
Update Note
Progress Note Update
IV fluids: 1000ml
Crystalloid:� 900
U.O.:� 150
UF:� 1200
Blood:� 3prbcs, 1plts
Wires:� V Wires
Inotropes: Dobutamine �
Pressors:� Levophed
Sedatives:� Precedex
�
NEURO: sedated on Precedex, pupils +2mm B/L
RESP: #8OT @22cm> 14/500/60/5. Lungs clear B/L. 2 mediastinal (50cc on arrival) and L pleural (5cc on arrival) chest tubes to -20cm suction. Sanguineous drainage
CV: RRR +S1, S2, no S3, no�rub, no murmur. Dermabond to median sternotomy. RIJ w/[place] locked @ 43cm. PA 28/19; CVP 8; C.O 3.7/CI 1.8
ABD: round, soft, no BS
EXT: no edema, +2/4 DP pulses on right and +1 with doppler, no femoral bruit, RLE STACEY wrap intact; radial A-line intact
: Gonzalez with clear yellow urine
�
A/P: POD #0 s/p Coronary artery bypass grafting x 4 with LAD coronary endarterectomy [CAZARES in situ to proximal LAD sequential to mid/distal LAD, [id number]] and Chordal sparing mitral valve replacement [29 mm biological valve] with autologous
pericardial patch at the [place] A3 to P3 region
RICHARD: EF�55%
- wean and extubate
- will need instruction regarding antibiotic prophylaxis for dental and invasive procedures
- F/u post-op labs
- Monitor urine and CT output
- Will start ASA tonight and plavix will start tomorrow
- Wean levo for MAPs >65 and maintain SBP <110
- Dobutamine added for HR and CI enhancements. Will wean appropriately
- F/u post-op EKG
- Cardiology consulted
�
#Endocarditis
- ID consulted
- continue antibiotics; follow cultures
- eventual PICC line placement
# acute surgical blood loss anemia-expected
- trend CBC
�
# T2DM (A1C 9.6)
- insulin infusion x 48h
- Will start oral agents after insulin infusion is completed
�
# Hyperlipidemia
- resume ranolazine when tolerating PO
#LLE PAD
- Vascular consulted
- Will likely need
--- NOTE | 2023-12-21 14:19 | W.PN.CT.SURG ---
CT Surgery Operative Note
-
CARDIAC SURGERY OPERATIVE REPORT
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
Postoperative Diagnosis: Same + Multi Vessel CAD
Procedure(s) Performed:
1. Standard sternotomy with aortic and bicaval cannulation
2. Coronary artery bypass grafting x 4 with LAD coronary endarterectomy [CAZARES in situ to proximal LAD sequential to mid/distal LAD, [id number]]
3. Chordal sparing mitral valve replacement [29 mm biological valve] with autologous pericardial patch at the [place] A3 to P3 region
4. Placement of temporary ventricular pacing wire
5. Transesophageal echocardiography
6. Endoscopic saphenous vein harvest of the right lower extremity
7. Flowprobe assessment of all grafts
Date of Surgery: 12/21/2023
Comorbidities:
1. Multivessel coronary disease involving the proximal LAD with a chronically total occluded proximal LAD
2. 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
3. 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
4. Former tobacco abuse
5. Xuy-zkrcdyk-zddnadobc diabetes
6. Hypertension
7. Hyperlipidemia
Attending Surgeon: Sagar Virk MD, MS
Assistants: Elo Rutledge PA-C (present and necessary to nurse first aid, retraction, suction, exposure, suture management, and wound closure under my direction)
Anesthesiology: Jonatan Ortiz MD and Melany Kimball CRNA
Scrub and Circulating RNs: Hortencia Ordoñez, RN, Cely Lewis RN
Lpn Care Manager: Roberto Mckeon CCP
Anesthesia: GETA
EBL: per perfusion records
Products: 3 prbcs and 1 pack of plts
CPB Time: 185 minutes
Aortic Cross Clamp Time: 147 minutes
Indication(s) for Procedures: This is a 78-year-old male who has known moderate mitral valve insufficiency. He was seen at an outside facility for left lower extremity leg pain and weight loss. He was found to have leukocytosis and positive blood
cultures and underwent transthoracic echocardiographic evaluation. He was found to have a significant 2 cm mobile vegetation on his mitral valve flipping from atrial to ventricular side. He also had evidence of thromboembolic phenomenon with
splenic infarcts on CT imaging. He was subsequently transferred over to our service for evaluation of mitral valve endocarditis. He appeared stable and on septic on admission to our service. Due to evidence of significant embolic phenomenon, he
was offered surgical intervention. As part of his workup he underwent left heart cath and was found to have significant multivessel coronary disease. Therefore CABG was also offered as part of the index operation. His STS risk is significantly
elevated, however he accepted the risk associated with surgical invention so we move forward.
Aortic Valve Description: No obvious vegetations on transesophageal echocardiography, trileaflet, normal with minimal AI.
Mitral Valve Description: Large vegetation at the A2 scallop and small vegetation at the P2 scallop. The free margin the anterior leaflet was heavily scarred with evidence of destruction by infection. The cords are relatively spared.
Findings: His left ventricular ejection fraction started the surgery was 55%. Following surgery his EF remained the same at 55% with no new regional wall motion abnormalities. LV contractions were concentric and symmetrical. His CAZARES was
harvested in a skeletonized fashion. His LAD was heavily calcified diseased. The segment that was opened at the mid proximal portion had no obvious lumen corresponding to his CUT FILER lesion. An endarterectomy of the vessel was performed. I was able
to identify a soft spot distally on his LAD and so a sequential CAZARES to LAD CAZARES to LAD graft was performed in order to provide forward and retrograde flow. His LPL branches are satisfactory size. This was grafted with the vein graft. Due to
limited conduit quality and availability, sequential graft was performed to the first OM (which was small and thin walled). Of note the proximal end of the vein graft to the aorta was quite narrow however this was all the conduit that we had. The
mitral valve was inspected and found to have significant vegetations at the A2 & P2 scallops. The free margin of the mitral leaflets were essentially destroyed. Intraoperative specimens were taken for culture and a chordal sparing mitral valve
replacement was performed after resecting all affected tissue. We thin irrigated with antibiotic solution and with diluted betadine. We than changed all instruments to fresh new ones Part of the anterior was relocated to the posterior annulus that
contained some of the chords. His tissue was quite thin and friable. Because of this I used autologous pericardium to reinforce the A3 down to P3 segments after placing inverted pledgeted 2 Ethibond sutures from LV through annulus to sewing cuff
of the valve - a total of 15 corknots were fired. It was sized to a 29 mm bioprosthesis. A dental mirror was used to orient the valve in order to keep the struts out of the LVOT. The left atrium and LV were interrogated to ensure there is no
debris left over. Test dosing of antegrade cardioplegia down the vein graft demonstrated a flow of approximately 45 to 50 cc a minute at a pressure of 80 mmHg. There is excellent visual flow in the LAD territory upon removal of the bulldog clamp.
After coming off cardiopulmonary bypass evaluation of the mitral valve revealed no paravalvular leak. Normal excursion of the bioprosthetic valve leaflets. The LVOT was free of any obstruction from the valve struts. Cardiac index on 3 of
dobutamine was over 2. He did require ventricular pacing initially then regained his sinus rhythm shortly after. Given his baseline anemia, 3 units of PRBCs were given on pump with additional 5 pack of platelets. FloProbe assessment of grafts
demonstrated a mean flow >20cc/min and PI of <3.0.
Specimen(s): Vegetations of the mitral valve sent for aerobic, anaerobic, fungal cultures.
Prosthesis:
1. 29 mm [place] mitral valve, serial #[id number]
Description of Procedure: The patient was taken to the operating room. Their identity and procedure to be performed were verified and they were positioned supine on the operating table. Induction via general anesthesia with endotracheal intubation
was performed and central venous access and arterial monitoring were inserted. A preoperative transesophageal echocardiogram was performed to assess cardiac function and valvular function. The patient was then prepped and draped from chin to feet in
a sterile fashion. A preoperative time-out was performed with all members of the team present. A midline chest incision was performed along with median sternotomy. A Rultract retractor was placed to elevate the left hemisternum. The CAZARES was
harvested in a skeletonized fashion. 5000 units of heparin were given simultaneous endoscopic harvesting the right lower extremity vein graft. The distal end of the CAZARES graft was transected after being doubly clipped. It had excellent flow. The
distal end the CAZARES graft was clipped with a medium clip and placed into a papaverine soaked Ray-Gigi sponge and replaced into the left hemithorax. The Rultract retractor was exchanged for a median sternotomy retractor. The innominate vein was
isolated. Full heparinization was given (a total of 40,000 units). We created a pericardial well. The aortic cannulation site was chosen where it was soft, pliable, and free of calcium. Cannulation was performed with an arterial cannula in the
ascending aorta, angled metal tip cannular in the superior vena cava and straight bendable cannula in the inferior vena cava. The arterial cannula line had an appropriate bounce and correlating pressures. Next, a root vent/antegrade cannula was
inserted into the ascending aorta. The ACT was confirmed to be over 400 and retrograde autologous priming was performed before commencing cardiopulmonary bypass. The pulmonary artery was away from the aorta to facilitate a clamp site.
Sondergaard�s groove was developed after creating the oblique sinus. A retrograde coronary sinus catheter was placed via the right atrium. The aortic cross-clamp was placed after decreasing the flow on the bypass and mean arterial pressure. A total
of 1.2L initial dose of antegrade/retrograde Del-Nido cardioplegia solution was given and planned for re-dosing every 75 minutes as necessary. There was rapid electro-mechanical arrest of the heart at 280 cc of cardioplegia. The left ventricle was
observed for distention on echocardiogram and manual palpation. Cold slush was placed into a lap on the RV and we systemically cooled to 34 degrees centigrade.
I positioned the heart to expose the left posterior lateral branch artery. A [place] blade was used to expose the coronary and perform the arteriotomy. Coronary Gonzales scissors were used to enlarge the incision. The saphenous vein was trimmed and
beveled to an appropriate size. The distal anastomosis was performed using 7-0 prolene in an end-to-side fashion. Antegrade cardioplegia was administered into the graft. Appropriate hemostasis and flow were confirmed. A suitable site on the obtuse
marginal was chosen. We dissected and prepared the distal target in a similar fashion. The underbelly of the vein was fashioned and a small venotomy was created. Due to the small size and how thin the vessel was, a yczh-ug-awiu anastomosis was
created with 8-0 Prolene in a running fashion. Antegrade cardioplegia was administered into the graft with the distal end to the LPL branch occluded. There was approximate 35 to 45 cc of flow at a pressure of 80 mmHg. The bulldog clamp was then
removed allowing for full flow to the sequential graft which demonstrated excellent mean flow and pressure.Appropriate hemostasis and flow were confirmed. The graft was measured for length to the aorta and cut. A target on the left anterior
descending was identified. It was heavily calcified and diseased from proximal to the midportion LAD. A small portion was opened in hopes of finding a lumen. None was identified. An endarterectomy was performed at the proximal to mid LAD. I
traced the LAD distally towards the apex and was able to identify an area with a lumen. This was opened using a small blade and enlarged with coronary Gonzales scissors. The distal end of the CAZARES was then prepared and end-to-side anastomosis was
created with 7-0 Prolene in a running fashion. Removal of the bulldog clamp demonstrated excellent antegrade flow down to the apex as well as retrograde flow back into the previous endarterectomy. The bulldog clamp was then replaced back on the
CAZARES. The underbelly of the CAZARES was prepared and a small arteriotomy was created. A [id number] anastomosis was created with 8-0 Prolene in a running fashion. Remove the bulldog clamp demonstrated good flow with retrograde filling into the
diagonal vessels. The bull clamp was replaced on the mammary.
Next, the mitral valve was accessed via the intra-atrial groove at the left atrium followed by valve analysis. The mitral valve was replaced as described above. The left ventricular vent was repositioned across the mitral valve into the left
ventricular and the left atrium was closed with a 3-0 prolene. The aortic root was then filled with antegrade cardioplegia and a small aortotomy was created with a 4.0 millimeter punch. The proximal anastomosis was created with 6-0 Prolene in a
running fashion.
De-airing maneuvers were performed and temporary ventricular pacing wires were placed at the base of the right ventricle. The patient was placed in a Trendelenburg position and flows on bypass were lowered. The aortic cross clamp was removed and
flows were slowly brought back up. The left atrial suture line was hemostatic. I inspected our proximal and distals which were hemostatic. FloSeal was used at the distal and proximal grafts for additional hemostasis. A single repair suture was
placed at the proximal graft in additional to a small clip of a branch. Transesophageal echocardiography revealed no evidence of paravalvular leak and leaflet function was normal. Once de-airing was satisfactory the root vent was removed. After
verifying acceptable parameters, we initiated weaning from cardiopulmonary bypass. Once we were off cardiopulmonary bypass, the venous cannulas was clamped and removed sequentially. A test dose of protamine was administered and the patient was
monitored for any adverse reaction before resuming protamine. Once half of the protamine dose was delivered, pump suckers were turned off and the systolic blood pressure was lowered for aortic decannulation. The aortic cannula was removed and purse
strings were tied down. All cannulation sites were oversewn with a 4-0 prolene. The left atrial suture line was inspected and hemostasis was confirmed. Mediastinal hemostasis was obtained. Two #24 Frank drains were placed within the pericardium
along with a #19 in the left hemothorax. The sternum was approximated with 4 #7 single and 3 #8 double stainless steel wires. Fascia was approximated with #1 vicryl suture. The subcutaneous, dermis and epidermis were closed in layers in a running
fashion. The skin wound was cleansed and dressed.
All instrument, sponge, and needle counts were confirmed to be correct x 2 at the end of the operation. The patient was transferred to the cardiac intensive care unit in critical but stable condition.
I, Dr. Sagar Virk, was present, scrubbed for, and performed all critical elements of this procedure.
Sagar Virk MD, MS
Cardiothoracic Surgeon
[facility]
This dictation was created using the [employer] dictation system. Please excuse any grammatical, typographical, or 'sound alike' errors
[2023-12-21 14:31] LABS: Glucose - Point of Care 121 mg/dl (70-99)
[2023-12-21 14:42] LABS: B.E. -0.4 mmol/L; HCO3 24.1 mmol/L (21-28); Ionized Calcium 1.05 mMOL/L (1.15-1.33); O2 Saturation % 98.9 % (94-98); PCO2 38 mmHg (35-48); PO2 148 mmHg (83-108); Sodium 137 mMOL/L (136-145); pH 7.41 (7.35-7.45)
[2023-12-21 14:54] LABS: INR 1.94
[2023-12-21 14:55] LABS: APTT 52.8 Sec (23.4-35.0); Hematocrit 25.6 % (39.0-52.0); Hemoglobin 9.1 g/dL (13.0-18.0); Platelet Count 131 10^3/uL (130-400)
--- NOTE | 2023-12-21 15:01 | PTCARENOTE ---
Received pt from [facility] at 1420; pt intubated and sedated; NSR on monitor and VSS; RIJ Cordis, [place]ham floated to 48, Left A-line and PIV x1 all lines leveled and zeroed; Dobutamine, Levo, Insulin and Precedex infusing see flow sheet for details;
Epicardial V wire connected and box turned off; lungs diminished; ET size 8 and 23 @ lip; SIMV 60%/5/5/500/14; CT x3 to -20 wall suction no air leak and no crepitus noted; hypoactive bowel sounds; palpable pulses throughout; no edema noted; all
surgical sites C/D/i; see nursing documentation for further details.
CI 2.28
CO 3.72
SVR 1075
[2023-12-21 15:04] LABS: Blood Urea Nitrogen 8 mg/dl (9-20); Estimated Creatinine Clearance 64 ml/min; Glucose 110 mg/dl (70-99); Magnesium 2.8 mg/dl (1.6-2.3)
--- NOTE | 2023-12-21 15:04 | W.PN.CD ---
Today's Communication / Plan
-
cont routine post op care
Impression / Plan
-
78-year-old gentleman transferred from [facility] with new diagnosis of infectious endocarditis. Coronary angiography showed GI ASST of ostial LAD and significant disease of the dominant circ. He is now s/p CABG with CAZARES in situ to
proximal LAD sequential to mid/distal LAD, [id number] and MVR 29 mm biological valve with autologous pericardial patch at the [place] A3 to P3 region.
CAD with hx stenting now s/p CABG as above
-continue post op care
- wean levo as able
- elevated liver enzymes affected statins
MV endocarditis now s/p 29 mm biological valve and patch
- continue post op care
- f/u culture
HTN:
-holdign BB
DM:
-on insulin
Physical Exam
Vital Signs/Labs
Vital Signs
Temp Pulse Resp BP Pulse Ox
96.0 F L 82 14 118/72 100
12/21/23 14:46 12/21/23 14:42 12/21/23 14:42 12/21/23 05:51 12/21/23 14:51
12/20/23 12/21/23 12/22/23
06:59 06:59 06:59
Actual Weight 130 lb 8.218 oz 130 lb 8.218 oz
12/21/23 14:28
PT 14.4 Sec (11.4-14.6) 12/19/23 17:55
INR 1.11 12/19/23 17:55
APTT 40.7 Sec (23.4-35.0) H 12/19/23 17:55
Magnesium 2.8 mg/dl (1.6-2.3) H 12/21/23 14:28
Physical Exam
Constitutional: Other (intubated and sedated )
Cardiovascular: Rhythm & rate is regular and Pedal edema is absent
Respiratory: Other (vented)
GI: Soft
Data Reviewed
-
Date of Service: December 21, 2023
EKG: Tracing Personally Visualized and interpreted (sr)
Echo: Report Reviewed by me
Labs: Labs Reviewed by me
[2023-12-21] MEDS: CALCIUM CHLORIDE 10% SYRINGE 50 ML IV (15:11)
[2023-12-21] MEDS: CALCIUM CHLORIDE 10% SYRINGE 50 MG IV (15:11)
[2023-12-21 15:15] LABS: Glucose - Point of Care 140 mg/dl (70-99)
[2023-12-21] MEDS: NEURONTIN PO ×3 (15:46→22:28)
[2023-12-21] MEDS: TYLENOL PO ×2 (15:47→22:28)
[2023-12-21] MEDS: NSS 500 IV (15:48)
[2023-12-21] MEDS: ROCEPHIN 2000 MG IV (16:20)
[2023-12-21] MEDS: STERILE WATER FOR INJECTION 20 ML IV (16:20)
[2023-12-21 16:22] LABS: Glucose - Point of Care 134 mg/dl (70-99)
--- NOTE | 2023-12-21 16:29 | W.PN.ID1 ---
Date of Service
Date of Service: December 21, 2023
Today's Communication
Continue antibiotics
Assessment / Plan
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
Suspected embolic event to lower extremity
Left hallux pain
Leukocytosis
Mitral regurgitation
Angina
HTN
Dyslipidemia
DM type II
Renal insufficiency
Hx anemia
Recommendations:
Cultures currently pending. 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
Cultures from [facility] are pending but NG@72h. Cultures have also been obtained here at [facility], but patient was already on multiple antibiotics and yield will likely be low.
Patient S/P surgery.
Continue with ceftriaxone and vancomycin for now.
Chief Complaint
-: Other (Endocarditis)
Subjective / Review of Systems
Patient seen and examined. Status post OR. Remains intubated at this time
Vital Signs / Physical Exam
Vital Signs
Vital Signs
Temp Pulse Resp BP Pulse Ox
97 F 100 14 91/70 98
12/21/23 16:00 12/21/23 16:05 12/21/23 16:05 12/21/23 16:00 12/21/23 16:05
Physical Exam
Constitutional: Acutely Ill
Oropharyngeal: Other (ET tube in place.)
Cardiovascular: S1/S2; Negative S3/S4
Pulmonary: Coarse
Gastrointestinal: Non Distended
Neurological: Other (sedated)
Objective Data
Lab Data
Lab Results
12/21/23 14:28
ESR 52 mm/hour (0-20) H 12/21/23 02:59
PT 22.0 Sec (11.4-14.6) H 12/21/23 14:28
INR 1.94 12/21/23 14:28
APTT 52.8 Sec (23.4-35.0) H 12/21/23 14:28
Estimated Creat Clear 64 ml/min 12/21/23 14:28
Total Bilirubin 0.8 mg/dl (0.2-1.3) 12/19/23 17:55
AST 46 U/L (17-59) 12/19/23 17:55
ALT 44 U/L (0-50) 12/19/23 17:55
Alkaline Phosphatase 85 U/L (38-126) 12/19/23 17:55
C-Reactive Protein 53.30 mg/L (0.0-10.00) H 12/21/23 02:59
Most recent labs reviewed.
Micro Results:
12/21/23 11:18 Tissue Culture - Pending
Valve Gram Stain - Preliminary
12/21/23 11:18 Gram Stain - Final
Valve
12/21/23 11:18 Fungal Culture - Preliminary
Valve Culture in progress.
Positive cultures are reported as soon as detected.
Final report to follow in four to five weeks.
12/21/23 11:18 Anaerobic Culture - Pending
Valve
12/21/23 07:30 Urine Culture - Pending
Urine
12/20/23 05:15 Blood Culture - Preliminary
Blood/Venous No Growth in 24 hours- Final report to follow
12/20/23 04:27 Blood Culture - Preliminary
Blood/Venous No Growth in 24 hours- Final report to follow
[2023-12-21 16:30] LABS: B.E. -1.3 mmol/L; HCO3 22.6 mmol/L (21-28); Ionized Calcium 1.32 mMOL/L (1.15-1.33); O2 Saturation % 98.5 % (94-98); PCO2 34 mmHg (35-48); PO2 94 mmHg (83-108); Potassium 4.1 mMOL/L (3.5-5.1); Sodium 136 mMOL/L (136-145); pH 7.43 (7.35-7.45)
--- NOTE | 2023-12-21 16:30 | PTCARENOTE ---
CI 1.41, CO 2.30 and SVR 2225; Drew Wisdom CV MID LEVEL PRACTITIONER at bedside; Albumin x1 given; Dobutamine increased to 3 mcg/kg/min; awaiting FFP from lab.
[2023-12-21] MEDS: ALBUMIN 5% 250 IV ×2 (16:56→21:30)
[2023-12-21] MEDS: RANEXA EXTENDED RELEASE PO (16:58)
[2023-12-21] MEDS: PROTONIX PO (16:58)
[2023-12-21] MEDS: LANTUS SC (16:58)
[2023-12-21] MEDS: LOW STRENGTH ASPIRIN PO (16:58)
[2023-12-21] MEDS: SENOKOT-S PO ×2 (16:58→20:11)
[2023-12-21] MEDS: NOVOLOG FLEXPEN-MODERATE RESISTANCE SC ×2 (16:58)
[2023-12-21] MEDS: TOPROL XL PO (16:59)
[2023-12-21 17:08] LABS: Glucose - Point of Care 111 mg/dl (70-99)
[2023-12-21 18:07] LABS: Glucose - Point of Care 128 mg/dl (70-99)
--- NOTE | 2023-12-21 18:11 | PTCARENOTE ---
2 units of FFP transfused without difficulties; Sinus Tachycardia on monitor and VSS; Levo, Insulin and Dobutamine infusing see flow sheet for details.
[2023-12-21 18:12] LABS: Hemoglobin 7.1 g/dL (13.0-18.0); Platelet Count 149 10^3/uL (130-400)
[2023-12-21 18:17] LABS: Hematocrit 19.4 % (39.0-52.0)
[2023-12-21 18:26] LABS: INR 1.55; PT 18.4 Sec (11.4-14.6)
--- NOTE | 2023-12-21 18:28 | PTCARENOTE ---
H&H resulted 7.0/19.1; updated CV HOSPITAL RECEPTIONIST; 2 units PRBCs ordered; 1 unit of PRBC infusing now.
[2023-12-21 19:06] LABS: Glucose - Point of Care 133 mg/dl (70-99)
[2023-12-21] MEDS: ASPIRIN 300 MG RECTAL (19:14)
--- NOTE | 2023-12-21 19:20 | PTCARENOTE ---
First unit PRBC's infusion complete. Pt VSS. Second unit of PRBC's started.
--- NOTE | 2023-12-21 20:15 | PTCARENOTE ---
Pt received from [facility]. Pt intubated and drowsy. Pt able to open his eyes on command, weakly squeeze both hands, and can move his feet/toes. Pt SR on the monitor. HR 90s. Temporary epicardial v-wire set to VVI 40/2/3. Trace bilateral hand
edema noted. Bilateral radial pulses palpable. Right DP pulse palpable. Left posterior tibial pulse present w/ Doppler. BP 90-110's/50s. CVP 8-10. PAP's 20s/teens. Pt intubated w/ #8 ETT, 23 cm @ Right lip. Vent set to SIMV. 40% FiO2. Rate 14. Tidal
volume 500. Peep 5. POX 98%. Pt suctioned as needed. CTx3 (mediastinal x2 and L pleural) to -20 suction, no airleak at this time, and output WNL. Abdomen soft/nontender. Hypoactive BS. Temperature sensing og catheter CDI and draining yellow
urine. Sternal incision well approximated and NESTOR. Right groin puncture site soft w/ minor ecchymosis. Right leg STACEY bandage CDI. Right IJ cordis and swan CDI. Left arterial line CDI. PIVx1 CDI. All lines leveled, zeroed, and flushed. Levo infusing
as ordered. Dobutamine infusing as ordered. Glycemic protocol followed. See worklist for full VS, I&O, nursing assessment, and interventions.
[2023-12-21] MEDS: NITROGLYCERIN PREMIX 250 IV (20:29)
--- NOTE | 2023-12-21 20:45 | PTCARENOTE ---
Addendum entered by Pura Jennings RN 12/21/23 22:46:
This was the second unit of PRBC's ordered.
Original Note:
1 unit PRBC's infused as ordered. Pt VSS. Temp 97.1, HR 92, RR 14, BP 124/58. Repeat H&H ordered for 0.
[2023-12-21 21:02] LABS: Glucose - Point of Care 139 mg/dl (70-99)
[2023-12-21] MEDS: CALCIUM CHLORIDE 10% SYRINGE 500 MG IV (21:27)
[2023-12-21 21:59] LABS: B.E. 0.5 mmol/L; HCO3 24.3 mmol/L (21-28); Ionized Calcium 1.36 mMOL/L (1.15-1.33); O2 Saturation % 99.6 % (94-98); PCO2 35 mmHg (35-48); PO2 109 mmHg (83-108); pH 7.45 (7.35-7.45)
--- NOTE | 2023-12-21 22:00 | PTCARENOTE ---
Pt BP labile. SBP <70. CTPA at the bedside. 500 calcium and 250 albumin given. Pt SBP's then maintained in the 150s. Nitro initiated per CTPA.
[2023-12-21 22:01] LABS: Hematocrit 23.9 % (39.0-52.0); Mean Corp Hgb Conc. 36.4 g/dL (33.0-37.0); Mean Corpuscular Hgb 30.5 pg (27.0-31.0); Mean Corpuscular Volume 83.9 fL (80.0-94.0); Mean Platelet Volume 9.9 fL (7.4-10.4); Platelet Count 122 10^3/uL (130-400); Red Blood Cell Count 2.85 10^6/uL (4.70-6.10); Red Cell Dist. Width 14.4 % (11.5-14.5); White Blood Cell Count 17.7 10^3/uL (4.8-10.8)
[2023-12-21 22:03] LABS: Hemoglobin 8.7 g/dL (13.0-18.0)
[2023-12-21 22:11] LABS: Estimated Creatinine Clearance 57 ml/min; INR 1.43; Magnesium 2.4 mg/dl (1.6-2.3); PT 17.3 Sec (11.4-14.6)
[2023-12-21 22:12] LABS: APTT 44.7 Sec (23.4-35.0)
[2023-12-21] MEDS: OFIRMEV 100 IV (22:55)
[2023-12-21 23:02] LABS: Glucose - Point of Care 106 mg/dl (70-99)
[2023-12-22] VITALS (55 sets, daily range): BP systolic 76–131; BP diastolic 43–96; PULSE 70; O2SAT 96–98; BMI 24.6
--- NOTE | 2023-12-22 00:07 | PTCARENOTE ---
Pt reassessed. Pt intubated and drowsey. Pt following commands appropriately when woken up. Pt able to squeeze both hands, move bilateral LE, and nod head appropriately. Pt SR on the monitor. HR 90s. Temporary epicardial v-wires intact. BP
90-100s/40-50s. Pt BP drops slightly when awake. CVP 2-6. PAPs 18-20s/10's. Pt vent settings unchanged from previous. Attempted CPAP w/ respiratory, but pt unable to stay awake. Ct assessment unchanged from previous. Gonzalez catheter CDI. All surgical
sites stable. All lines leveled, zeroed, and flushed. Levo infusing per protocol. Dobutamine infusing as ordered. Glycemic protocol followed.
[2023-12-22 00:44] LABS: Vancomycin Peak 19.8 ug/ml (18-26)
[2023-12-22 01:04] LABS: Glucose - Point of Care 93 mg/dl (70-99)
--- NOTE | 2023-12-22 02:08 | PTCARENOTE ---
Attempted to CPAP patient w/ respiratory at the beside five separate times (about once an hour since 2300). Pt unable to stay awake and breath on his own during each attempt. Pt remains on vent settings SIMV. FiO2 40%. Rate 14. Tidal volume 500.
Peep 5. Pressure support 5. POX 98%.
[2023-12-22 03:15] LABS: Glucose - Point of Care 89 mg/dl (70-99)
[2023-12-22 04:13] LABS: B.E. -0.4 mmol/L; HCO3 24.1 mmol/L (21-28); O2 Saturation % 99.5 % (94-98); PCO2 38 mmHg (35-48); PO2 118 mmHg (83-108); Potassium 3.8 mMOL/L (3.5-5.1); pH 7.41 (7.35-7.45)
[2023-12-22] MEDS: KCL 50 IV ×2 (04:25→05:39)
--- NOTE | 2023-12-22 04:31 | PTCARENOTE ---
Pt reassessed. Pt remains intubated. Pt placed on CPAP @0305. Pt remains SR on the monitor. EKG obtained. Temporary epicardial v-wire intact. BP stable and as documented in work-list. Levo infusing per protocol. CVP 4. PAP 20s/10s. CO: 4.21 / CI:
2.58. POX 98%. CT assessment unchanged. Gonzalez catheter CDI and draining yellow urine. All surgical sites stable. [place] and arterial line maintained. All lines leveled, zeroed, and flushed. Glycemic protocol followed. Labs drawn and sent.
[2023-12-22 04:33] LABS: Hematocrit 25.1 % (39.0-52.0); Mean Corp Hgb Conc. 35.9 g/dL (33.0-37.0); Mean Corpuscular Hgb 30.3 pg (27.0-31.0); Mean Corpuscular Volume 84.5 fL (80.0-94.0); Platelet Count 123 10^3/uL (130-400); Red Blood Cell Count 2.97 10^6/uL (4.70-6.10); Red Cell Dist. Width 14.9 % (11.5-14.5); White Blood Cell Count 16.8 10^3/uL (4.8-10.8)
--- NOTE | 2023-12-22 04:55 | RESPNOTE ---
Addendum entered by Hilary Morejon, RT 12/22/23 05:22:
Placed on final weaning trial @ 0300/extubated a
Original Note:
PT was extubated at this time following several failed weaning attempts @ 2300/2350/0030/0110 & 0205. PT had to be taken off of the weaning trials and put back on full ventilatory support due to multiple apneic events per trial. PT was placed on
this final weaning trial and was repositioned and stimulated with a wet rag and bright lights and was able to stay on the trial without any apneic events. PT was suctioned before and after extubation for scant clear secretions and placed on a 6 L
nasal cannula. PT voiced his name at this time and was able to perform 3 I/S manuevers, best being 1,500 mls. HR-98/RR-16/SPO2-97% on 6 L.
[2023-12-22 04:57] LABS: Blood Urea Nitrogen 11 mg/dl (9-20); Calcium 9.1 mg/dl (8.4-10.2); Carbon Dioxide 25 mmol/L (22-30); Chloride 110 mmol/L (98-107); Estimated Creatinine Clearance 46 ml/min; Glucose 86 mg/dl (70-99); Magnesium 2.4 mg/dl (1.6-2.3); Potassium 3.8 mmol/L (3.5-5.1); Sodium 141 mmol/L (135-145); eGFR > 60.00
[2023-12-22 05:01] LABS: Vancomycin Trough 17.4 ug/ml (5-20)
--- NOTE | 2023-12-22 05:05 | PTCARENOTE ---
ABG resulted. Per CTPA - good to extubate pt. Pt extubated to 6 L NC w/ respiratory. Pt AAOx3. POX 99%. IS [id number].
[2023-12-22 05:07] LABS: Glucose - Point of Care 103 mg/dl (70-99)
--- NOTE | 2023-12-22 05:09 | W.PN.CT ---
Today's Communication / Plan
-
-pod #1
-extubated @ 4:55 am
-CI 2.97, CO 4.84, SVR 1024. Drips: insulin, Levo 1, Dobut 1
-CT output: L pleur 35/85 and 2 meds 100/280 in 12/24 hrs
-wean off drips, then deline
-continue insulin
-diurese
-follow cx, continue Abx - on Rocephin and Vancomycin. Appreciate ID input
-current meds (ASA, Plavix, Lopressor, Amio, Protonix, iv iron, Abx)
-encourage IS, OOB
Assessment / Plan
-
-s/p chordal sparing MVR with 29 mm Hensley mitral valve and CABG x4 [CAZARES in situ to proximal LAD sequential to mid/distal LAD, [id number]] on 12/21/[address] Virk, pod #1
-intraop RICHARD: LVEF 55% pre and post, no wma
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
-mv-CAD with a chronically totally occluded prox LAD
-anorexia, 30 lbs weight loss since August and left hallux pain with suspected embolic event to the L lower extremity
-hx CAD with prior stents
-HTN/HLD
-DM II
-Former smoker
-acute postop blood loss anemia - s/p total 5 pRBCs
-acute postop coagulopathy/thrombocytopenia - s/p 2 FFPs and 1 unit platelets
-acute postop atelectasis
-acute postop hypovolemia with subsequent hypervolemia
Discussed patient care with: Nursing and Care Team
Subjective
Procedure
-s/p chordal sparing MVR with 29 mm Hensley mitral valve and CABG x4 [CAZARES in situ to proximal LAD sequential to mid/distal LAD, [id number]] on 12/21/[address] Virk
-
Date of Service: December 22, 2023
Objective Data
-
PT 17.3 Sec (11.4-14.6) H 12/21/23 21:51
INR 1.43 12/21/23 21:51
APTT 44.7 Sec (23.4-35.0) H 12/21/23 21:51
Vital Signs
Vital Signs
Temp Pulse Resp BP Pulse Ox
97.2 F 92 14 108/65 98
12/22/23 00:00 12/22/23 00:00 12/22/23 00:00 12/22/23 00:00 12/22/23 00:00
CT Intake/Output/Weight
12/21/23 12/21/23 12/22/23
06:59 18:59 06:59
Intake Total 1328.4 / 2381.1 1052.7 / 2381.1
Output Total 640 / 1010 370 / 1010
Balance 688.4 / 1371.1 682.7 / 1371.1
SaO2: 98
Physical Exam
-
General: Awake and AOx3
Cardiovascular: Regular rate & rhythm, No Murmurs and No Rub
Respiratory: Decreased Breath Sounds
Sternum: Stable
Incision: Clean, Dry and Intact
Extremities: No Edema (R: 2+ DP and PT and L: Doppler DP and PT. Feet warm, pink b/l)
Data Reviewed
-
Lab Results: Results Reviewed
Medications: Active Meds Reviewed
Chest X-Ray: Report Reviewed and Image Reviewed
ECG: Report Reviewed and Image Reviewed
[2023-12-22] MEDS: VANCOCIN HCL 500 MG 100 IV ×2 (06:40→17:28)
[2023-12-22] MEDS: TYLENOL 1000 MG PO ×3 (06:41→22:17)
[2023-12-22 07:24] LABS: Glucose - Point of Care 105 mg/dl (70-99)
--- NOTE | 2023-12-22 07:30 | PTCARENOTE ---
Assumed care of patient from lieutenant shift supervisor RN, LISETTE x 3, dozing intermittently in the bed. SR on monitor. Epicardial wire to back up of 40, no pacing noted at present. Rt IJ cordis with [place] @ 48 cm. Lt radial Arterial line transducing. Lines
leveled, recalibrated, and flushed. Oxygen at 4 L NC. Pulse ox 99%, will wean as tolerated. Chest tubes x 3 to - 20 cm suction. No air leaks or crepitus noted. Gonzalez cath draining clear yellow urine. Sternal incision well approximated with
surgical adhesive. Rt groin puncture c,d,i. Rt leg SVG harvest site also well approximated with Jayce wrap intact. Bilateral radial pulses palpable. Rt DP pulse palpable. Lt PT pulse via doppler. Drips infusing upon handoff as follows: Insulin,
dobutamine, levophed. see flow sheets for titrations/rate. Plan for day discussed.
[2023-12-22] MEDS: NSS IV (07:39)
--- NOTE | 2023-12-22 07:49 | W.PN.CD ---
Today's Communication / Plan
-
-Start aspirin, Plavix, Ranexa, metoprolol.
-Continue antibiotics ceftriaxone.
-On insulin. Advance diet as tolerated.
Impression / Plan
-
78-year-old gentleman transferred from [facility] with new diagnosis of infectious endocarditis. Now status post CABG and MVR. Postop day #1
Coronary angiography showed OIL BURNER SERVICER AND INSTALLER of ostial LAD and significant disease of the dominant circ. He is now s/p CABG with CAZARES in situ to proximal LAD sequential to mid/distal LAD, [id number] and MVR 29 mm biological valve with autologous pericardial
patch at the [place] A3 to P3 region.
MV endocarditis now
-s/p chordal sparing MVR with 29 mm Hensley bioprosthetic mitral valve and patch - - 12/21/23 - Dr. Virk
- continue post op care
-Plan to continue aspirin and Plavix. Start Coumadin today. Plan to discontinue Plavix once INR is above 1.6.
- f/u culture
CAD with hx stenting now s/p CABG as above
- s/p CABG with CAZARES in situ to proximal LAD sequential to mid/distal LAD, [id number] - 12/21/23 - Dr. Virk
-Doing very well. Extubated now.
-D line. Off pressors.
-Antibiotics for endocarditis.
- continue post op care
- wean levo as able
- elevated liver enzymes affected statins
HTN:
-Stable. Started metoprolol 12.5 twice daily
DM:
-on insulin
Physical Exam
Vital Signs/Labs
Vital Signs
Temp Pulse Resp BP Pulse Ox
98 F 76 16 101/61 100
12/22/23 06:00 12/22/23 07:10 12/22/23 07:10 12/22/23 07:00 12/22/23 07:10
06/12/22/23 12/23/23
06:59 06:59 06:59
Actual Weight 59.2 kg 64.9 kg
12/22/23 04:05
12/22/23 04:05
PT 17.3 Sec (11.4-14.6) H 12/21/23 21:51
INR 1.43 12/21/23 21:51
APTT 44.7 Sec (23.4-35.0) H 12/21/23 21:51
Magnesium 2.4 mg/dl (1.6-2.3) H 12/22/23 04:05
Physical Exam
Constitutional: No acute distress and Comfortable
EENT: Anicteric and Moist mucous membranes
Cardiovascular: Rhythm & rate is regular, Pedal edema present, JVD present and Systolic murmur present
Respiratory: Respiratory effort normal, Lungs clear to auscul., Wheeze Absent and Crackles Present
GI: Non tender and Normal bowel sounds
Neuro/Psych: Alert, Oriented and AO x 3
Other: Skin
Data Reviewed
-
Date of Service: December 22, 2023
Medical Decision Making: Reviewed Test Results, Independent Historian Assessment, Test Interpretation and Review of Case with other Provider
EKG: Tracing Personally Visualized and interpreted
Echo: Report Reviewed by me
Labs: Labs Reviewed by me
Old Records: Reviewed
Critical Care Time (in minutes): 45
--- NOTE | 2023-12-22 07:49 | PHA.VAN.FU ---
Vancomycin Assessment / Plan
- Assessment
Renal Function: Stable
In the past 24 hrs, patient has been: Afebrile
Concomitant Antimicrobials: CEFTRIAXONE
- Assessment - Therapeutic Drug Monitoring
Extrapolated Cmax (mcg/mL): 22.4
Peak level was drawn: More than 3 hours after previous dose (3.6 HRS AFTER END OF DOSE)
Extrapolated Cmin (mcg/mL): 15.4
Trough Drawn: Appropriately
Levels were drawn: At steady state
Calculated AUC (mcg*h/mL): 449
Calculated ke: 0.0337
Calculated half life (H): 20.6
Calculated Vd (L): 66.11
Calculated Vanc CL (ml/min): 37.14
- Dosing Plan
Adjust Regimen to: 1000MG Q24H
New Regimen Predicts: AUC (456), Peak (27.3), Trough (12.6)
Dosing Comments: half life greater than 12h, change to q24h same tdd
- Monitoring Plan
Level(s) appropriate: Recheck trough at minimum of weekly intervals, Repeat sooner for changes in renal function or clinical status
- Follow Up
Pharmacy will continue to follow.
Vancomycin Follow UP
- -
Patient Age: 78
Patient Sex: Male
Vancomycin Day #: 6 (initiated on vancomycin at [facility])
Indication: Endocarditis
Requesting Provider: Noman Clark
Pertinent Antimicrobial Allergies:
NKDA
Height / Weight:
Height 5 ft 4 in
Actual Weight 64.9 kg
Pertinent Past Medical History: DM
- Vital Signs / Lab Results
Temp Pulse Resp BP Pulse Ox
98 F 76 16 101/61 100
12/22/23 06:00 12/22/23 07:10 12/22/23 07:10 12/22/23 07:00 12/22/23 07:10
Lab Results - Hematology
12/19/23 12/20/23 12/21/23
17:55 04:27 02:59
WBC 10.5 13.3 H 11.5 H
12/21/23 12/22/23
21:51 04:05
WBC 17.7 H 16.8 H
Lab Results - Chemistry
12/19/23 12/20/23 12/21/23
17:55 04:27 02:59
BUN 11 12 9
Creatinine 0.9 1.0 1.0
Estimated Creat Clear 51
Albumin 2.6 L
12/21/23 12/21/23 12/22/23
14:28 21:51 04:05
BUN 8 L 11
Creatinine 0.8 0.9 1.1
Estimated Creat Clear 64 57 46
Albumin
Lab Results - Urine
12/21/23
07:30
Urine Nitrite (Reflex) Negative
Leukocyte Esterase Rfl Negative
Ur Squamous Epith Cells 0-2
Microbiology Results
12/20/23 05:15 Blood Culture - Preliminary
Blood/Venous No Growth in 48 hours- Final report to follow
12/20/23 04:27 Blood Culture - Preliminary
Blood/Venous No Growth in 48 hours- Final report to follow
12/21/23 11:18 Gram Stain - Preliminary
Valve
12/21/23 11:18 Gram Stain - Final
Valve
12/21/23 11:18 Fungal Culture - Preliminary
Valve Culture in progress.
Positive cultures are reported as soon as detected.
Final report to follow in four to five weeks.
Therapeutic Drug Monitoring
Vancomycin Peak 19.8 ug/ml (18-26) 12/22/23 00:15
Vancomycin Trough 17.4 ug/ml (5-20) 12/22/23 04:05
Random Vancomycin 12.5 ug/ml 12/20/23 14:57
[2023-12-22 08:06] LABS: Glucose - Point of Care 115 mg/dl (70-99)
--- NOTE | 2023-12-22 08:12 | W.PN.ID1 ---
Date of Service
Date of Service: December 22, 2023
Today's Communication
Continue antibiotics. Await pending cultures.
Assessment / Plan
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
s/p bioprosthetic mitral valve replacement (12/21/2023)
Suspected embolic event to lower extremity
Left hallux pain
Leukocytosis
Mitral regurgitation
Angina
HTN
Dyslipidemia
DM type II
Renal insufficiency
Hx anemia
Recommendations:
Cultures currently pending. Given history, most likely etiology is viridans Streptococcus, although Hasek organisms are also possible
Cultures from [facility] are pending but NG@96h. Cultures have also been obtained here at [place], but patient was already on multiple antibiotics and yield will likely be low.
Patient S/P surgery.
Continue with ceftriaxone and vancomycin for now.
����������������������������������������������������������
Chief Complaint
-: Other (Mitral valve endocarditis)
Subjective / Review of Systems
Patient seen and examined. Now extubated.
Vital Signs / Physical Exam
Vital Signs
Vital Signs
Temp Pulse Resp BP Pulse Ox
96.5 F L 70 15 106/66 99
12/22/23 07:55 12/22/23 08:00 12/22/23 08:00 12/22/23 08:00 12/22/23 08:00
Physical Exam
Constitutional: Comfortable and Acutely Ill
Head: Normocephalic
Cardiovascular: Regular Rate and S1/S2; Negative S3/S4
Pulmonary: Clear; Negative Wheezes, Rales or Rhonchi
Gastrointestinal: Soft and Non Distended
Extremities: Splinter Hemorrhage; Negative Edema, Cyanosis, Erythema or [place]ay Lesions
Neurological: Other (sedated)
Psychological: Calm
Objective Data
Lab Data
Lab Results
12/22/23 04:05
12/22/23 04:05
ESR 52 mm/hour (0-20) H 12/21/23 02:59
PT 17.3 Sec (11.4-14.6) H 12/21/23 21:51
INR 1.43 12/21/23 21:51
APTT 44.7 Sec (23.4-35.0) H 12/21/23 21:51
Estimated Creat Clear 46 ml/min 12/22/23 04:05
Total Bilirubin 0.8 mg/dl (0.2-1.3) 12/19/23 17:55
AST 46 U/L (17-59) 12/19/23 17:55
ALT 44 U/L (0-50) 12/19/23 17:55
Alkaline Phosphatase 85 U/L (38-126) 12/19/23 17:55
C-Reactive Protein 53.30 mg/L (0.0-10.00) H 12/21/23 02:59
Most recent labs reviewed.
Micro Results:
12/20/23 05:15 Blood Culture - Preliminary
Blood/Venous No Growth in 48 hours- Final report to follow
12/20/23 04:27 Blood Culture - Preliminary
Blood/Venous No Growth in 48 hours- Final report to follow
12/21/23 11:18 Tissue Culture - Pending
Valve Gram Stain - Preliminary
12/21/23 11:18 Gram Stain - Final
Valve
12/21/23 11:18 Fungal Culture - Preliminary
Valve Culture in progress.
Positive cultures are reported as soon as detected.
Final report to follow in four to five weeks.
12/21/23 11:18 Anaerobic Culture - Pending
Valve
12/21/23 07:30 Urine Culture - Pending
Urine
[2023-12-22] MEDS: FLUSH (NSS) 1 FLUSH IV ×4 (08:22→20:21)
[2023-12-22] MEDS: ROCEPHIN 2000 MG IV ×2 (08:22→20:20)
[2023-12-22] MEDS: STERILE WATER FOR INJECTION 20 ML IV ×2 (08:22→20:20)
[2023-12-22] MEDS: SENOKOT-S 1 TABLET PO ×2 (08:26→20:20)
[2023-12-22] MEDS: PLAVIX 75 MG PO (08:26)
[2023-12-22] MEDS: BACTROBAN 2% OINTMENT 1 APPLIC NASAL ×2 (08:26→20:20)
[2023-12-22] MEDS: NEURONTIN 100 MG PO ×3 (08:26→22:17)
[2023-12-22] MEDS: PROTONIX 40 MG PO (08:26)
[2023-12-22] MEDS: LOW STRENGTH ASPIRIN 81 MG PO (08:26)
[2023-12-22] MEDS: MAGNESIUM OXIDE PO ×2 (08:57→20:20)
[2023-12-22 09:02] LABS: Glucose - Point of Care 96 mg/dl (70-99)
--- NOTE | 2023-12-22 09:05 | W.PN.ANS.POP ---
Anesthesia Post Operative
- Anesthesia Post Op Note
Vital Signs Stable-See Nursing Note: Yes
Airway Patent: Yes
Adequate Pain Control: Yes
Change in Mental Status: No
Current Postoperative Nausea & Vomiting: No
Anesthesia Complications: No
General Anesthetic Recall: No
Unplanned Admission: No
Post Op Hydration Adequate: Yes
[2023-12-22 10:05] LABS: Glucose - Point of Care 102 mg/dl (70-99)
[2023-12-22 11:28] LABS: Glucose - Point of Care 94 mg/dl (70-99)
--- NOTE | 2023-12-22 12:08 | W.PN.INTV ---
Today's Communication / Plan
Recommendations
Continue postoperative care
Antibiotic, follow cultures
Low-dose Coumadin started-follow INR
Glycemic control
Increase activity as able
Sign off
Assessment
-
78-year-old man who was transferred from [facility] with weight loss of 30 pounds. Found to have mitral valve vegetations/endocarditis. Transferred to weight loss secondary to above [facility] for evaluation. Subsequently he
was evaluated by CT surgery. Given endocarditis with thromboembolic phenomena, coronary artery disease he was offered mitral valve replacement with coronary artery bypass.
Status post Coronary artery bypass grafting x 4 with LAD coronary endarterectomy [CAZARES in situ to proximal LAD sequential to mid/distal LAD, [id number]]
Chordal sparing mitral valve replacement [29 mm biological valve] with autologous pericardial patch at the [place] A3 to P3 region 12/21/2023
Mitral valve endocarditis: Cultures negative so far.
Postoperative mechanical ventilation
Postoperative anemia
Weight loss secondary to above
Mitral valve endocarditis-moderate to severe mitral valve regurgitation.
Severe coronary artery disease
Insulin-dependent diabetes
Assessment and plan:
Postoperative day 1 doing well
Extubated
On low rate supplemental oxygen
Encourage incentive spirometry
Increase activity per protocol
Anemia noted-no evidence of acute bleeding
Follow H&H serially
Hemodynamics -stable.
Normal renal function.
Adequate urinary output
Cardiology correspondence reviewed: To restart his cardiac medication
Follow fever curve and leukocytosis
Continue antibiotics per infectious disease-ceftriaxone
Follow culture
Chest tube with no excessive drainage-no air leak.
Chest x-ray reviewed: Pending
Advance diet as tolerated
Head of the bed elevation
Glycemic control per protocol
DVT prophylaxis when safe from the surgical perspective.
No additional recommendation from the critical care perspective. At this point I will sign off.
Subjective Dataa
Subjective Data
Date of Service:
Date of Service: December 22, 2023
Chief Complaint: Stock Raiser Follow Up (Endocarditis-status post AVR and coronary artery bypass)
Subjective:
Extubated yesterday.
On low rate supplemental oxygen
Pain is controlled
No major event overnight
Review of Systems
General: Fever (n)
Cardiopulmonary: Dyspnea (none at rest)
GI: Abdominal Pain (n) and Nausea (n)
Neuro: Headache (n)
Objective Data
Data Reviewed
Vital Signs / I&O / Oxygen:
Vital Signs
Temp Pulse Resp BP Pulse Ox
97.3 F 73 21 99/55 99
12/22/23 11:00 12/22/23 11:30 12/22/23 11:30 12/22/23 11:00 12/22/23 11:20
Intake and Output
12/21/23 12/22/23 12/23/23
06:59 06:59 06:59
Intake Total 240 / 240 2641.7 / 2698.3 419.4 / 419.4
Output Total 150 / 150 1295 / 1335 220 / 220
Balance 90 / 90 1346.7 / 1363.3 199.4 / 199.4
SaO2 [CPAP/PSV] 98
SaO2 [SIMV] 98
SaO2 99
Nasal Cannula flow liters per 2
minute
Physical Exam
General: Respiratory Distress (n) and Comfortable
HEENT: Normocephalic
Cardiovascular: S1-S2
Respiratory: Clear, Non-Labored Respirations and Chest Tube (No air leak or excessive drainage)
GI: Soft and Non Distended
Neurology: Awake and No Motor Deficits
Skin: Warm
Labs/Micro/Reports
Lab Data
12/22/23 04:05
12/22/23 04:05
Laboratory Results
12/21/23 12/21/23 12/21/23
14:28 16:19 18:02
PT 22.0 H 18.4 H
INR 1.94 1.55
APTT 52.8 H
pH 7.41 7.43
pCO2 38 34 L
pO2 148 H 94
HCO3 24.1 22.6
O2 Delivery Level
12/21/23 12/22/23 12/22/23
21:51 03:52 04:05
PT 17.3 H
INR 1.43
APTT 44.7 H
pH 7.45 Cancelled 7.41
pCO2 35 Cancelled 38
pO2 109 H Cancelled 118 H
HCO3 24.3 Cancelled 24.1
O2 Delivery Level Cancelled
Microbiology
12/21/23 07:30 Urine Urine Culture - Final
NO GROWTH
12/21/23 11:18 Valve Anaerobic Culture - Preliminary
Culture pending. Anaerobic cultures are examined after 3
days incubation. Additional information to follow.
12/21/23 11:18 Valve Tissue Culture - Preliminary
No Growth After 18-24 Hours
12/21/23 11:18 Valve Gram Stain - Preliminary
12/20/23 05:15 Blood/Venous Blood Culture - Preliminary
No Growth in 48 hours- Final report to follow
12/20/23 04:27 Blood/Venous Blood Culture - Preliminary
No Growth in 48 hours- Final report to follow
12/21/23 11:18 Valve Gram Stain - Final
12/21/23 11:18 Valve Fungal Culture - Preliminary
Culture in progress.
Positive cultures are reported as soon as detected.
Final report to follow in four to five weeks.
--- NOTE | 2023-12-22 12:19 | PTCARENOTE ---
Rt IJ swan removed as per TUFTING MACHINE OPERATOR SINGLE NEEDLE order. Pt tolerated w/o issue. LT radial A line removed at this time also. Hemostasis achieved w/o incident. Insulin maintained. Resting. Assessment otherwise unchanged from prior.
[2023-12-22 13:52] LABS: Glucose - Point of Care 86 mg/dl (70-99)
[2023-12-22] MEDS: FERRLECIT 110 MG IV (14:02)
--- NOTE | 2023-12-22 14:03 | PTCARENOTE ---
Assist x 2 with minimal effort oob to chair. Gait steady, c/o mild dizziness but very able with movement. No dumping noted from chest tubes. Pt denies pain. Tylenol given as ordered. Pt very hard of hearing , questionable if forgetful or if
due to hearing deficit at times.
[2023-12-22] MEDS: KCL 40 MEQ PO (15:17)
[2023-12-22] MEDS: LASIX 40 MG IV (15:17)
[2023-12-22 16:41] LABS: Glucose - Point of Care 104 mg/dl (70-99)
--- NOTE | 2023-12-22 16:43 | PTCARENOTE ---
Resting in recliner, denies complaint of pain. Diuresing large amounts of urine after IV lasix administered. States hes not hungry at present. Encouraged to order for later. Tolerating liquids. VSS. Assessment otherwise unchanged from prior.
[2023-12-22] MEDS: COUMADIN 2.5 MG PO (17:28)
[2023-12-22] MEDS: NOVOLIN R INSULIN INFUSION 100 IV (17:28)
[2023-12-22 18:41] LABS: Glucose - Point of Care 106 mg/dl (70-99)
[2023-12-22] MEDS: PACERONE 200 MG PO (20:39)
[2023-12-22] MEDS: ALBUMIN 5% 250 IV ×3 (20:53→23:36)
[2023-12-22 20:59] LABS: Glucose - Point of Care 139 mg/dl (70-99)
--- NOTE | 2023-12-22 21:00 | PTCARENOTE ---
Assumed care of pt from miladis RN. Pt AAOx3. Pt c/o feeling lightheaded and dizzy. Pressure 70-s-80's/50s. No dumping from CT. CTNP at the bedside. 250 albumin ordered and administered. Pressure increased to 100s/50s. Pt SR on the monitor. HR 70s.
Temporary epicardial v-wire intact and set to backup 40/2/3. Bilateral hand edema present. Trace edema throughout. Bilateral radial pulses palpable. Right DP palpable. Left PT present w/ Doppler. Lung sounds diminished. Pt 98% on 2 L NC. Deep
breathing and IS encouraged. CTx3 (mediastinal x2 and L pleural) to -20 suction, no airleak noted, and output WNL. Abdomen soft/nontender. +BS. Gonzalez catheter CDI and draining clear/yellow urine. Sternal incision approximated and NESTOR. Right groin
intact, soft, and ecchymotic. Right leg incision site approximated and PACKER OPERATOR AUTOMATIC. Right IJ cordis CDI. Left PIV CDI. Glycemic protocol followed. Denies pain. See worklist for full VS, assessment, and interventions. Call deshpande within reach and pt ringing
appropriately.
--- NOTE | 2023-12-22 22:30 | PTCARENOTE ---
Pt BP 80s/50s. CPNP aware. No dumping from CT noted. Pt c/o minor lightheadedness and feeling tired. Another 250 albumin administered as ordered. BP increased to 109/55 upon completion of albumin.
[2023-12-22 23:10] LABS: Glucose - Point of Care 108 mg/dl (70-99)
--- NOTE | 2023-12-22 23:51 | PTCARENOTE ---
Pt BP's dropped back down to 80s/50s. 250 albumin administered as ordered per CT FAMILY INDEPENDENCE CASE MANAGER. Pt denies dizziness but states he is tired. CT output WNL.
[2023-12-23] VITALS (59 sets, daily range): BP systolic 78–138; BP diastolic 48–76; BMI 24.3
--- NOTE | 2023-12-23 00:04 | PTCARENOTE ---
Pt reassessed. SR on the monitor. HR 70s. BP 80s-100s/50s. Pt remains on 2 L NC. POX 98%. CT assessment unchanged from previous. Gonzalez catheter CDI and draining clear/yellow urine. All surgical sites stable. Glycemic protocol followed. Pt resting
comfortably in bed at this time. Call deshpande within reach.
[2023-12-23 01:09] LABS: Glucose - Point of Care 93 mg/dl (70-99)
[2023-12-23] MEDS: CORDARONE 103 MG IV (01:10)
[2023-12-23] MEDS: LEVOPHED 250 IV (01:11)
[2023-12-23] MEDS: CORDARONE 518 MG IV (01:27)
[2023-12-23] MEDS: KCL 50 IV (01:48)
--- NOTE | 2023-12-23 02:09 | PTCARENOTE ---
Pt into a-fib ~0049. CTNP aware. Amio bolus administered. Amio drip now infusing as ordered. IV KCL and magnesium sulfate ordered - see MAR. Levo initiated as ordered/per protocol for low BP.
[2023-12-23] MEDS: MAGNESIUM SULFATE 100 IV (02:57)
[2023-12-23 03:08] LABS: Glucose - Point of Care 164 mg/dl (70-99)
--- NOTE | 2023-12-23 04:32 | PTCARENOTE ---
Pt reassessed. Pt converted to SR ~0300. EKG obtained. EKG showed SR w/ 1st degree AV block and prolonged QT. HR 70s. BP 90-100s/50s. Levo infusing per protocol. Pt remains on 2 L NC. Temporary epicardial v-wire intact and set to VVI 50/4/0.8. POX
98-99%. No acute changes in CT assessment. All surgical sites stable. Gonzalez catheter CDI and draining clear/yellow urine. Amiodarone drip infusing as ordered. Labs drawn and sent. Pt repositioned in bed. Denies pain at this time, however pt did
state he feels weak. Call deshpande within reach.
[2023-12-23 04:39] LABS: Hematocrit 21.3 % (39.0-52.0); Hemoglobin 7.6 g/dL (13.0-18.0); Mean Corp Hgb Conc. 35.7 g/dL (33.0-37.0); Mean Corpuscular Hgb 30.8 pg (27.0-31.0); Mean Corpuscular Volume 86.2 fL (80.0-94.0); Mean Platelet Volume 10.8 fL (7.4-10.4); Platelet Count 131 10^3/uL (130-400); Red Blood Cell Count 2.47 10^6/uL (4.70-6.10); Red Cell Dist. Width 15.5 % (11.5-14.5); White Blood Cell Count 15.4 10^3/uL (4.8-10.8)
[2023-12-23 04:51] LABS: INR 1.31; PT 16.1 Sec (11.4-14.6)
[2023-12-23 05:04] LABS: Blood Urea Nitrogen 12 mg/dl (9-20); Calcium 8.5 mg/dl (8.4-10.2); Carbon Dioxide 26 mmol/L (22-30); Chloride 105 mmol/L (98-107); Estimated Creatinine Clearance 51 ml/min; Glucose 120 mg/dl (70-99); Magnesium 2.6 mg/dl (1.6-2.3); Potassium 4.2 mmol/L (3.5-5.1); Sodium 136 mmol/L (135-145); eGFR > 60.00
[2023-12-23 05:42] LABS: Glucose - Point of Care 154 mg/dl (70-99)
[2023-12-23] MEDS: VANCOCIN 200 IV (05:51)
[2023-12-23] MEDS: TYLENOL 1000 MG PO ×3 (05:51→22:11)
--- NOTE | 2023-12-23 06:06 | W.PN.CT ---
Today's Communication / Plan
-
-pod #2
-given diuretic yesterday, had low BPs which responded well to 250 cc albumin bolus x3
-Afib without RVR yesterday, s/p amio bolus/gtt. BP too soft tolerate BB. converted back to NSR
-currently on amio and insulin gtt.
-CT output: L pleur 75/120 and 2 meds 55/125 in 12/24 hrs
-follow cx, new RML infiltrate?, continue Abx - on Rocephin and Vancomycin. Appreciate ID input
-current meds (ASA, Plavix) drop plavix once INR >1.6.
-TTE before discharge.
-INR this AM 1.31
Assessment / Plan
-
-s/p chordal sparing MVR with 29 mm Hensley mitral valve and CABG x4 [CAZARES in situ to proximal LAD sequential to mid/distal LAD, [id number]] on 12/21/[address] Virk, pod #2
-intraop RICHARD: LVEF 55% pre and post, no wma
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
-mv-CAD with a chronically totally occluded prox LAD
-anorexia, 30 lbs weight loss since August and left hallux pain with suspected embolic event to the L lower extremity
-hx CAD with prior stents
-HTN/HLD
-DM II
-Former smoker
-acute postop blood loss anemia - s/p total 5 pRBCs
-acute postop coagulopathy/thrombocytopenia - s/p 2 FFPs and 1 unit platelets
-acute postop atelectasis
-acute postop hypovolemia with subsequent hypervolemia
Subjective
Procedure
-s/p chordal sparing MVR with 29 mm Hensley mitral valve and CABG x4 [CAZARES in situ to proximal LAD sequential to mid/distal LAD, [id number]] on 12/21/[address] Virk
-
Date of Service: December 23, 2023
Objective Data
-
Lab Results
12/23/23 04:28
12/23/23 04:28
PT 16.1 Sec (11.4-14.6) H 12/23/23 04:28
INR 1.31 12/23/23 04:28
APTT 44.7 Sec (23.4-35.0) H 12/21/23 21:51
Vital Signs
Vital Signs
Temp Pulse Resp BP Pulse Ox
97.4 F 65 20 110/57 99
12/23/23 04:00 12/23/23 05:35 12/23/23 05:00 12/23/23 05:30 12/23/23 05:35
CT Intake/Output/Weight
12/22/23 12/22/23 12/23/23
06:59 18:59 06:59
Intake Total 1313.3 / 2698.3 723.0 / 1733.1 1010.1 / 1733.1
Output Total 655 / 1335 1765 / 3230 1465 / 3230
Balance 658.3 / 1363.3 -1042.0 / -1496.9 -454.9 / -1496.9
SaO2: 99
Physical Exam
-
General: Awake, Oriented and AOx3
Cardiovascular: Regular rate & rhythm and No Murmurs
Sternum: Stable
Incision: Clean, Dry and Intact
Extremities: Edema +1
Data Reviewed
-
Lab Results: Results Reviewed
Medications: Active Meds Reviewed
Chest X-Ray: Report Reviewed
ECG: Report Reviewed
[2023-12-23] MEDS: COMPAZINE 5 MG IV (06:31)
--- NOTE | 2023-12-23 07:00 | PTCARENOTE ---
Assumed care of patient from merchandise distributor RN. LISETTE x 3. Very drowsy this morning, states he had a rough night. SR on monitor 60's. Epicardial wire set to back up of VVI 40. No pacing noted at present. VSS. Amiodarone and levophed infusing via
Rt IJ cordis. Insulin drip infusing per glycemic protocol. Chest tubes x 3 to - 20 cm suction. 2 L NC 100%, occasional productive cough noted. IS to 750. Needs encouragement to use. Pt states prior nausea resolved. Abdomen soft and non
tender. Passing flatus. Bilateral plus 1 hand edema appreciated. Pulses palpable bilateral radials. RT DP pulse palpable. Lt PT pulse via doppler. Surgical sites well approximated. Plan for day discussed.
[2023-12-23 07:13] LABS: Glucose - Point of Care 138 mg/dl (70-99)
[2023-12-23 07:25] LABS: Hemoglobin 7.9 g/dL (13.0-18.0)
--- NOTE | 2023-12-23 07:31 | W.PN.CD ---
Today's Communication / Plan
-
-
Impression / Plan
-
78-year-old gentleman transferred from [facility] with new diagnosis of infectious endocarditis. Now status post CABG and MVR. Postop day #1
Coronary angiography showed SANDSTONE SPLITTER of ostial LAD and significant disease of the dominant circ. He is now s/p CABG with CAZARES in situ to proximal LAD sequential to mid/distal LAD, [id number] and MVR 29 mm biological valve with autologous pericardial
patch at the [place] A3 to P3 region.
MV endocarditis now
-s/p chordal sparing MVR with 29 mm Hensley bioprosthetic mitral valve and patch - - 12/21/23 - Dr. Virk
- continue post op care -norepinephrine support.
-Continue amiodarone.
- Plan to continue aspirin and Plavix. Started Coumadin on 12/21. Plan to discontinue Plavix once INR is above 1.6.
- Possible lower extremity infected emboli
- f/u culture
- ECHO - TTE possible in AM.
CAD with hx stenting now s/p CABG as above
- s/p CABG with CAZARES in situ to proximal LAD sequential to mid/distal LAD, [id number] - 12/21/23 - Dr. Virk
-Doing very well. Extubated now.
-D line. Off pressors.
-Antibiotics for endocarditis.
- continue post op care
- wean levo as able
- elevated liver enzymes affected statins
HTN:
-Stable. Started metoprolol 12.5 twice daily
DM:
-on insulin
Physical Exam
Vital Signs/Labs
Vital Signs
Temp Pulse Resp BP Pulse Ox
97.4 F 65 20 96/53 99
12/23/23 04:00 12/23/23 07:05 12/23/23 07:00 12/23/23 07:00 12/23/23 07:05
12/22/23 12/23/23 12/24/23
06:59 06:59 06:59
Actual Weight 64.9 kg 64.1 kg
12/23/23 07:12
12/23/23 04:28
PT 16.1 Sec (11.4-14.6) H 12/23/23 04:28
INR 1.31 12/23/23 04:28
APTT 44.7 Sec (23.4-35.0) H 12/21/23 21:51
Magnesium 2.6 mg/dl (1.6-2.3) H 12/23/23 04:28
Data Reviewed
-
Date of Service: December 23, 2023
--- NOTE | 2023-12-23 07:56 | PHA.VAN.FU ---
Vancomycin Assessment / Plan
- Assessment
Renal Function: Stable
WBC's are: Trending Down
In the past 24 hrs, patient has been: Afebrile
Concomitant Antimicrobials: CEFTRIAXONE
- Dosing Plan
Continue: 1000MG Q24H
- Monitoring Plan
Level(s) appropriate: Recheck trough at minimum of weekly intervals, Repeat sooner for changes in renal function or clinical status
- Follow Up
Pharmacy will continue to follow.
Vancomycin Follow UP
- -
Patient Age: 78
Patient Sex: Male
Vancomycin Day #: 7 (initiated on vancomycin at [facility])
Indication: Endocarditis
Requesting Provider: Noman Clark
Pertinent Antimicrobial Allergies:
NKDA
Height / Weight:
Height 5 ft 4 in
Actual Weight 64.1 kg
Pertinent Past Medical History: DM
- Vital Signs / Lab Results
Temp Pulse Resp BP Pulse Ox
97.4 F 65 20 96/53 99
12/23/23 04:00 12/23/23 07:05 12/23/23 07:00 12/23/23 07:00 12/23/23 07:05
Lab Results - Hematology
12/21/23 12/21/23 12/22/23
02:59 21:51 04:05
WBC 11.5 H 17.7 H 16.8 H
12/23/23
04:28
WBC 15.4 H
Lab Results - Chemistry
12/21/23 12/21/23 12/21/23
02:59 14:28 21:51
BUN 9 8 L
Creatinine 1.0 0.8 0.9
Estimated Creat Clear 51 64 57
12/22/23 12/23/23
04:05 04:28
BUN 11 12
Creatinine 1.1 1.0
Estimated Creat Clear 46 51
Microbiology Results
12/20/23 05:15 Blood Culture - Preliminary
Blood/Venous No Growth in 72 hours- Final report to follow
12/20/23 04:27 Blood Culture - Preliminary
Blood/Venous No Growth in 72 hours- Final report to follow
12/21/23 07:30 Urine Culture - Final
Urine NO GROWTH
12/21/23 11:18 Anaerobic Culture - Preliminary
Valve Culture pending. Anaerobic cultures are examined after 3
days incubation. Additional information to follow.
12/21/23 11:18 Tissue Culture - Preliminary
Valve No Growth After 18-24 Hours
Gram Stain - Preliminary
12/21/23 11:18 Gram Stain - Final
Valve
12/21/23 11:18 Fungal Culture - Preliminary
Valve Culture in progress.
Positive cultures are reported as soon as detected.
Final report to follow in four to five weeks.
Therapeutic Drug Monitoring
Vancomycin Peak 19.8 ug/ml (18-26) 12/22/23 00:15
Vancomycin Trough 17.4 ug/ml (5-20) 12/22/23 04:05
Random Vancomycin 12.5 ug/ml 12/20/23 14:57
[2023-12-23] MEDS: MAGNESIUM OXIDE PO ×2 (08:13→20:15)
[2023-12-23] MEDS: NEURONTIN 100 MG PO ×3 (08:25→22:11)
[2023-12-23] MEDS: SENOKOT-S 1 TABLET PO ×2 (08:25→20:13)
[2023-12-23] MEDS: PROTONIX 40 MG PO (08:25)
[2023-12-23] MEDS: LOW STRENGTH ASPIRIN 81 MG PO (08:25)
[2023-12-23] MEDS: PLAVIX 75 MG PO (08:25)
[2023-12-23] MEDS: ROCEPHIN 2000 MG IV ×2 (08:26→20:15)
[2023-12-23] MEDS: FLUSH (NSS) 1 FLUSH IV ×4 (08:26→20:14)
[2023-12-23] MEDS: STERILE WATER FOR INJECTION 20 ML IV ×2 (08:26→20:15)
[2023-12-23] MEDS: BACTROBAN 2% OINTMENT 1 APPLIC NASAL ×2 (08:27→20:12)
[2023-12-23] MEDS: NOVOLOG FLEXPEN-MODERATE RESISTANCE SC (08:27)
[2023-12-23] MEDS: LANTUS 0.179999999999999993 UNITS SC (08:45)
[2023-12-23 08:55] LABS: ALT (SGPT) 21 U/L (0-50); AST (SGOT) 52 U/L (17-59); Albumin 2.7 g/dl (3.5-5.0); Alkaline Phosphatase 53 U/L (38-126); Direct Bilirubin 0.4 mg/dl (0.0-0.4); LDH 355 U/L (120-246); Total Bilirubin 0.6 mg/dl (0.2-1.3); Total Protein 4.7 g/dl (6.3-8.2)
--- NOTE | 2023-12-23 09:48 | PTCARENOTE ---
Repeat HH obtained, 1 unit PRBC's then transfused per order. PT resting in bed. Tolerated.
[2023-12-23] MEDS: LASIX 40 MG IV (10:15)
--- NOTE | 2023-12-23 11:44 | PTCARENOTE ---
Epicardial wire pulled by CT RECYCLING COORDINATOR. VS Q 15 min as per protocol. No bleeding noted, VSS. After 1 hour, Chest tubes removed as per order. PT tolerated w/o issue. Resting in bed at present. Will assist oob shortly. Assessment otherwise unchanged
from prior.
--- NOTE | 2023-12-23 13:04 | W.PN.ID1 ---
Date of Service
Date of Service: December 23, 2023
Today's Communication
Continue ceftriaxone. Discontinue further vancomycin.
Assessment / Plan
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
s/p bioprosthetic mitral valve replacement (12/21/2023)
Suspected embolic event to lower extremity
Left hallux pain
Leukocytosis
Mitral regurgitation
Angina
HTN
Dyslipidemia
DM type II
Renal insufficiency
Hx anemia
Recommendations:
Cultures currently pending. Given history, most likely etiology is viridans Streptococcus, although Hasek organisms are also possible
Patient S/P surgery.
Continue with ceftriaxone. Discontinue further vancomycin.
����������������������������������������������������������
Chief Complaint
-: Other (Mitral valve endocarditis)
Subjective / Review of Systems
Patient seen and examined. Now extubated and sitting up in bed. Feels mildly dizzy today.
Review of Systems: No Fever and No Chills
Vital Signs / Physical Exam
Vital Signs
Vital Signs
Temp Pulse Resp BP Pulse Ox
97.3 F 66 16 109/58 100
12/23/23 11:43 12/23/23 11:43 12/23/23 11:43 12/23/23 11:30 12/23/23 11:43
Physical Exam
Constitutional: Comfortable and Acutely Ill
Head: Normocephalic
Cardiovascular: Irregular Rate and S1/S2; Negative S3/S4
Pulmonary: Clear; Negative Wheezes, Rales or Rhonchi
Gastrointestinal: Soft and Non Distended
Extremities: Splinter Hemorrhage; Negative Edema, Cyanosis, Erythema or Janeway Lesions
Neurological: Other (sedated)
Psychological: Calm
Objective Data
Lab Data
Lab Results
12/23/23 07:12
12/23/23 04:28
ESR 52 mm/hour (0-20) H 12/21/23 02:59
PT 16.1 Sec (11.4-14.6) H 12/23/23 04:28
INR 1.31 12/23/23 04:28
APTT 44.7 Sec (23.4-35.0) H 12/21/23 21:51
Estimated Creat Clear 51 ml/min 12/23/23 04:28
Total Bilirubin 0.6 mg/dl (0.2-1.3) 12/23/23 04:28
AST 52 U/L (17-59) 12/23/23 04:28
ALT 21 U/L (0-50) 12/23/23 04:28
Alkaline Phosphatase 53 U/L (38-126) 12/23/23 04:28
C-Reactive Protein 53.30 mg/L (0.0-10.00) H 12/21/23 02:59
Most recent labs reviewed.
Micro Results:
12/21/23 11:18 Anaerobic Culture - Preliminary
Valve Culture pending. Anaerobic cultures are examined after 3
days incubation. Additional information to follow.
12/21/23 11:18 Tissue Culture - Preliminary
Valve No Growth After 48 Hours
Gram Stain - Preliminary
12/20/23 05:15 Blood Culture - Preliminary
Blood/Venous No Growth in 72 hours- Final report to follow
12/20/23 04:27 Blood Culture - Preliminary
Blood/Venous No Growth in 72 hours- Final report to follow
12/21/23 07:30 Urine Culture - Final
Urine NO GROWTH
12/21/23 11:18 Gram Stain - Final
Valve
12/21/23 11:18 Fungal Culture - Preliminary
Valve Culture in progress.
Positive cultures are reported as soon as detected.
Final report to follow in four to five weeks.
Care Review
Plan reviewed with: Physician (CT Surgery)
[2023-12-23] MEDS: NSS 500 IV (13:20)
[2023-12-23 13:36] LABS: Glucose - Point of Care 172 mg/dl (70-99)
[2023-12-23] MEDS: FERRLECIT 110 MG IV (13:46)
[2023-12-23] MEDS: NOVOLOG FLEXPEN-MODERATE RESISTANCE 2 UNITS SC (13:46)
--- NOTE | 2023-12-23 13:49 | PTCARENOTE ---
Assist x 1 oob to chair. Steady on his feet but states he feels very weak. Encouragement provided.
--- NOTE | 2023-12-23 16:28 | PTCARENOTE ---
Attempted to ambulate Pt in room, Pt strong upon standing but quickly became very tired and wobbly and then very quiet. Pt ambulated approximately 20 feet total. BP did drop to 80's systolic, pt more alert once sitting. VSS . Discussed with CT
TELEPHONE INSTALLER . PT/OT order obtained. Gonzalez cath also removed at this time. Provided with a urinal.
[2023-12-23 16:49] LABS: Glucose - Point of Care 178 mg/dl (70-99)
[2023-12-23] MEDS: NOVOLOG FLEXPEN-MODERATE RESISTANCE 1 UNITS SC (17:01)
--- NOTE | 2023-12-23 17:02 | PTCARENOTE ---
BP remains low, pt asymptomatic. CT AIRCRAFT STRUCTURAL FITTER in to assess patient. Labs and calcium ordered. Labs obtained and sent. Calcium administered. Pt assisted back to bed. Will monitor.
[2023-12-23 17:10] LABS: Hematocrit 28.9 % (39.0-52.0); Mean Corp Hgb Conc. 34.6 g/dL (33.0-37.0); Mean Corpuscular Hgb 28.7 pg (27.0-31.0); Mean Corpuscular Volume 82.8 fL (80.0-94.0); Mean Platelet Volume 10.6 fL (7.4-10.4); Platelet Count 160 10^3/uL (130-400); Red Blood Cell Count 3.49 10^6/uL (4.70-6.10); Red Cell Dist. Width 20.5 % (11.5-14.5); White Blood Cell Count 18.1 10^3/uL (4.8-10.8)
[2023-12-23 17:20] LABS: Blood Urea Nitrogen 14 mg/dl (9-20); Calcium 8.5 mg/dl (8.4-10.2); Carbon Dioxide 29 mmol/L (22-30); Chloride 100 mmol/L (98-107); Estimated Creatinine Clearance 46 ml/min; Glucose 138 mg/dl (70-99); Sodium 136 mmol/L (135-145); eGFR > 60.00
[2023-12-23] MEDS: CALCIUM CHLORIDE 10% SYRINGE 1000 MG IV (17:28)
[2023-12-23] MEDS: COUMADIN 2.5 MG PO (17:42)
[2023-12-23] MEDS: ProAmatine 5 MG PO (20:14)
--- NOTE | 2023-12-23 20:45 | PTCARENOTE ---
Assumed care of pt from dayshift RN. Walking rounds completed. Pt AAOx3. Resting in bed at this time. SR on the monitor. HR 80s. BP 104/58. Map 72. Trace edema throughout. Bilateral radial pulses palpable. Left PT pulse present w/ doppler. Right DP
pulse palpable. Pt on RA. 94-97%. Lung sounds diminished. CT dressing CDI. Occasional cough. IS and deep breathing encouraged. Abdomen soft/nontender. Pt voided in urinal. Denies nausea. Sternal incision approximated and APPLICATION PROCESSOR. Right groin intact,
soft, ecchymotic and NESTOR. Right leg incision approximated and APPLICATION PROCESSOR. Right IJ cordis and left PIV CDI. Amio infusing as ordered. Midodrine administered per order for low BP. No c/o pain at this time. Call deshpande within reach and pt ringing
appropriately. See worklist for full nursing assessment, interventions, and VS.
[2023-12-24] VITALS (29 sets, daily range): BP systolic 82–120; BP diastolic 45–88; PULSE 62–91; O2SAT 95; BMI 24.5
--- NOTE | 2023-12-24 00:09 | PTCARENOTE ---
No acute changes in assessment. SR on the monitor. HR 60s. BP stable. RA. POX 96%. All surgical sites stable. Pt ringing appropriately to void in urinal. Amiodarone drip infusing as ordered. No c/o pain at this time. Pt repositioned in bed.
[2023-12-24] MEDS: CORDARONE 518 MG IV (00:56)
[2023-12-24 03:19] LABS: Hematocrit 27.2 % (39.0-52.0); Hemoglobin 9.5 g/dL (13.0-18.0); Mean Corp Hgb Conc. 34.9 g/dL (33.0-37.0); Mean Corpuscular Hgb 28.9 pg (27.0-31.0); Mean Corpuscular Volume 82.7 fL (80.0-94.0); Mean Platelet Volume 10.4 fL (7.4-10.4); Platelet Count 141 10^3/uL (130-400); Red Blood Cell Count 3.29 10^6/uL (4.70-6.10); Red Cell Dist. Width 20.7 % (11.5-14.5); White Blood Cell Count 15.6 10^3/uL (4.8-10.8)
--- NOTE | 2023-12-24 03:30 | PTCARENOTE ---
Pt went into a-fib on the monitor. Having episodes of bradycardia w/ HR dropping < 40. CT POTATO SEED CUTTER aware and at the bedside - put amiodarone drip on standby. EKG obtained and showed a-fib. Labs drawn and sent. BP stable. Pt AAOx3. Denies pain and SOB. All
surgical sites stable. Pt voiding in urinal w/ assistance. Pt repositioned in bed.
[2023-12-24 03:40] LABS: INR 1.26; PT 15.6 Sec (11.4-14.6)
[2023-12-24 04:18] LABS: Blood Urea Nitrogen 14 mg/dl (9-20); Calcium 8.9 mg/dl (8.4-10.2); Carbon Dioxide 29 mmol/L (22-30); Chloride 102 mmol/L (98-107); Estimated Creatinine Clearance 51 ml/min; Glucose 96 mg/dl (70-99); Magnesium 2.1 mg/dl (1.6-2.3); Potassium 3.8 mmol/L (3.5-5.1); Sodium 134 mmol/L (135-145); eGFR > 60.00
[2023-12-24] MEDS: KCL 50 IV (04:45)
--- NOTE | 2023-12-24 05:12 | W.PN.CT ---
Today's Communication / Plan
-
-pod #3
-s/p 1 U PRBC yesterday, Hgb 7.9->10. continue ferric gluconate. Diuresed with 40 mg IV Lasix x1, UOP 725/2805
-had converted to NSR but now back in afib with slow rate and intermittent NSR. Rate down in the low 40s upper 30s at times and pauses, amio gtt off. Metoprolol 12.5 mg held.
-BP soft, continued on midodrine 5 mg TID, off Levophed
-PW and CTs pulled yesterday
-follow cx, new RML infiltrate?, continue Abx - on Rocephin, off Vancomycin. Appreciate ID input
-current meds (ASA, Plavix) drop plavix once INR >1.6.
-Continue short/long acting insulin
-TTE before discharge.
-INR this AM 1.26, warfarin 2.5 mg given yesterday
Assessment / Plan
-
-s/p chordal sparing MVR with 29 mm Hensley mitral valve and CABG x4 [CAZARES in situ to proximal LAD sequential to mid/distal LAD, [id number]] on 12/21/[address] Virk, pod #3
-intraop RICHARD: LVEF 55% pre and post, no wma
-transferred from [facility] on 12/19/2023 with infective endocarditis with mobile mitral valve vegetation and moderate mitral regurgitation.
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
-mv-CAD with a chronically totally occluded prox LAD
-anorexia, 30 lbs weight loss since August and left hallux pain with suspected embolic event to the L lower extremity
-hx CAD with prior stents
-HTN/HLD
-DM II
-Former smoker
-acute postop blood loss anemia - s/p total 5 pRBCs
-acute postop coagulopathy/thrombocytopenia - s/p 2 FFPs and 1 unit platelets
-acute postop atelectasis
-acute postop hypovolemia with subsequent hypervolemia
Subjective
Procedure
-s/p chordal sparing MVR with 29 mm Hensley mitral valve and CABG x4 [CAZARES in situ to proximal LAD sequential to mid/distal LAD, [id number]] on 12/21/[address] Virk
-
Date of Service: December 24, 2023
Objective Data
-
Lab Results
12/24/23 03:13
12/24/23 03:13
PT 15.6 Sec (11.4-14.6) H 12/24/23 03:13
INR 1.26 12/24/23 03:13
APTT 44.7 Sec (23.4-35.0) H 12/21/23 21:51
Vital Signs
Vital Signs
Temp Pulse Resp BP Pulse Ox
97.3 F 63 16 105/58 94
12/24/23 04:00 12/24/23 04:00 12/24/23 04:00 12/24/23 04:00 12/24/23 04:00
CT Intake/Output/Weight
12/23/23 12/23/23 12/24/23
06:59 18:59 06:59
Intake Total 1055.1 / 1826.9 907.3 / 1130.9 223.6 / 1130.9
Output Total 1495 / 3300 2105 / 2705 600 / 2705
Balance -439.9 / -1473.1 -1197.7 / -1574.1 -376.4 / -1574.1
SaO2: 94
Physical Exam
-
General: Awake, Oriented and AOx3
Cardiovascular: Irregular rate & rhythm and No Murmurs
Respiratory: Clear and Equal
Sternum: Stable
Incision: Clean, Dry and Dressing Intact
Extremities: No Edema
Data Reviewed
-
Lab Results: Results Reviewed
Medications: Active Meds Reviewed
Chest X-Ray: Report Reviewed
ECG: Report Reviewed
--- NOTE | 2023-12-24 06:27 | PTCARENOTE ---
Pt in a-fib on the monitor and having pauses. HR currently in the 60s. Per Dr. Virk - put pads on pt due to pauses. Pads applied to pt.
[2023-12-24] MEDS: TYLENOL 1000 MG PO ×3 (06:35→22:26)
--- NOTE | 2023-12-24 08:30 | PTCARENOTE ---
Received pt from wire twisting machine operator RN; pt AAOX3 and resting comfortably in bed; A-fib on monitor with Pauses and VSS; RIJ Cordis and PIVx2 all patent; Lungs diminished; IS to 750; sputum thick rosado; hypoactive bowel sounds; pt voiding clear yellow urine;
palpable radials and Doppler pedals present; +1 bilateral hand edema and trace generalized edema; all surgical sites C/D/I; see nursing documentation for further details.
--- NOTE | 2023-12-24 08:37 | W.PN.ID1 ---
Date of Service
Date of Service: December 24, 2023
Today's Communication
Continue ceftriaxone.
Assessment / Plan
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
- s/p bioprosthetic mitral valve replacement (12/21/2023)
- cultures NG to date
Suspected embolic event to lower extremity
Left hallux pain
Leukocytosis
Mitral regurgitation
Angina
HTN
Dyslipidemia
DM type II
Renal insufficiency
Hx anemia
Recommendations:
Cultures currently pending. Given history, most likely etiology is viridans Streptococcus, although Hasek organisms are also possible
Patient S/P surgery.
Continue with ceftriaxone. Will likely need 6 week course. Vancomycin previously discontinued.
����������������������������������������������������������
Chief Complaint
-: Other (Mitral valve endocarditis)
Subjective / Review of Systems
Review of Systems: No Fever and No Chills
Vital Signs / Physical Exam
Vital Signs
Vital Signs
Temp Pulse Resp BP Pulse Ox
97.3 F 70 16 112/61 95
12/24/23 04:00 12/24/23 06:15 12/24/23 04:00 12/24/23 06:00 12/24/23 06:15
Physical Exam
Constitutional: No Acute Distress, Comfortable and Non-toxic
Cardiovascular: Irregular Rate and S1/S2; Negative S3/S4
Pulmonary: Non Labored; Negative Wheezes or Rales
Gastrointestinal: Soft and Non Distended
Extremities: Negative Edema, Cyanosis or Erythema
Skin: Negative Rash or Jaundice
Psychological: Calm
Objective Data
Lab Data
Lab Results
12/24/23 03:13
12/24/23 03:13
ESR 52 mm/hour (0-20) H 12/21/23 02:59
PT 15.6 Sec (11.4-14.6) H 12/24/23 03:13
INR 1.26 12/24/23 03:13
APTT 44.7 Sec (23.4-35.0) H 12/21/23 21:51
Estimated Creat Clear 51 ml/min 12/24/23 03:13
Total Bilirubin 0.6 mg/dl (0.2-1.3) 12/23/23 04:28
AST 52 U/L (17-59) 12/23/23 04:28
ALT 21 U/L (0-50) 12/23/23 04:28
Alkaline Phosphatase 53 U/L (38-126) 12/23/23 04:28
C-Reactive Protein 53.30 mg/L (0.0-10.00) H 12/21/23 02:59
Most recent labs reviewed.
Micro Results:
12/20/23 05:15 Blood Culture - Preliminary
Blood/Venous No Growth in 4 days- Final report to follow
12/20/23 04:27 Blood Culture - Preliminary
Blood/Venous No Growth in 4 days- Final report to follow
12/21/23 11:18 Anaerobic Culture - Preliminary
Valve Culture pending. Anaerobic cultures are examined after 3
days incubation. Additional information to follow.
12/21/23 11:18 Tissue Culture - Preliminary
Valve No Growth After 48 Hours
Gram Stain - Preliminary
12/21/23 07:30 Urine Culture - Final
Urine NO GROWTH
12/21/23 11:18 Gram Stain - Final
Valve
12/21/23 11:18 Fungal Culture - Preliminary
Valve Culture in progress.
Positive cultures are reported as soon as detected.
Final report to follow in four to five weeks.
Care Review
Plan reviewed with: Other Provider (CT Surgery Clinical Microbiologist)
[2023-12-24] MEDS: NOVOLOG FLEXPEN-MODERATE RESISTANCE SC ×2 (08:46→13:26)
[2023-12-24] MEDS: PLAVIX 75 MG PO (08:46)
[2023-12-24] MEDS: ProAmatine 5 MG PO ×2 (08:46→11:12)
[2023-12-24] MEDS: LOW STRENGTH ASPIRIN 81 MG PO (08:47)
[2023-12-24] MEDS: NEURONTIN 100 MG PO ×3 (08:47→22:26)
[2023-12-24] MEDS: PROTONIX 40 MG PO (08:47)
[2023-12-24] MEDS: SENOKOT-S 1 TABLET PO ×2 (08:47→19:59)
[2023-12-24] MEDS: MAGNESIUM OXIDE 500 MG PO ×2 (08:47→19:59)
[2023-12-24] MEDS: BACTROBAN 2% OINTMENT 1 APPLIC NASAL ×2 (08:48→19:59)
[2023-12-24 08:53] LABS: Glucose - Point of Care 92 mg/dl (70-99)
[2023-12-24] MEDS: FLUSH (NSS) 1 FLUSH IV ×2 (08:56→08:57)
[2023-12-24] MEDS: LANTUS 0.179999999999999993 UNITS SC (09:01)
[2023-12-24] MEDS: STERILE WATER FOR INJECTION 20 ML IV (09:02)
[2023-12-24] MEDS: ROCEPHIN 2000 MG IV (09:02)
[2023-12-24] MEDS: ROCEPHIN IV (09:11)
[2023-12-24] MEDS: STERILE WATER FOR INJECTION IV (09:11)
--- NOTE | 2023-12-24 10:35 | CARDSERVDEF ---
Echocardiogram with Definity completed after protocol screening completed. Allergies verified.
Patent IV site: Left antecubital site clear
IV site flushed with 0.9% NaCl pre and post administration.
Diluted bolus method utilized to enhance visualization of ventricular jang.
Total volume given: __5__ mL
Patient tolerated all procedures well without complications.
--- NOTE | 2023-12-24 10:46 | W.PN.UPDATE ---
Update Note
Progress Note Update
Phone call to Gus Jama for follow up BC from 12/17-final report of no growth. Message relayed to Dr. Clark (ID).
[2023-12-24] MEDS: MUCINEX 600 MG PO ×2 (11:12→19:59)
--- NOTE | 2023-12-24 11:49 | PTCARENOTE ---
Assessment unchanged; A-fib on monitor with pauses and VSS; Pt worked with PT/OT, pt lightheaded and dizzy; orthostatics done and updated CV PREVENTATIVE MAINTENANCE TECHNICIAN; pt resting comfortably in bed.
[2023-12-24 12:21] LABS: Glucose - Point of Care 161 mg/dl (70-99)
--- NOTE | 2023-12-24 12:29 | W.PN.CD ---
Addendum entered and electronically signed by Wilfrid Boyle MD 12/24/23 14:05:
I saw and examined the patient.
The BARREL FILLER's note was reviewed and I agree with the note.
PAF. Pause 2.5-3.5seconds. Includes some conversion pauses. Bradycardia limiting meds. Continue to assess need for pacemaker.
will also review with EP.
Original Note:
Today's Communication / Plan
-
-today's echo is pending
-remain off metoprolol and amiodarone and follow telemetry
-on midodrine, follow BP's
Impression / Plan
-
78-year-old gentleman transferred from [facility] with new diagnosis of infectious endocarditis. Coronary angiography showed MANAGEMENT SUPERVISOR of ostial LAD and significant disease of the dominant circ. He is now s/p CABG with CAZARES in situ to proximal
LAD sequential to mid/distal LAD, [id number] and MVR 29 mm biological valve with autologous pericardial patch at the [place] A3 to P3 region.
MV endocarditis:
-s/p chordal sparing MVR with 29 mm Hensley bioprosthetic mitral valve and patch - 12/21/23 - Dr. Virk
-currently on ASA, plavix, wand warfarin with plan to discontinue plavix once INR >1.6.
-Possible lower extremity infected emboli
-f/u culture, ID is following, on ABX, getting PICC
-echo this AM is pending
CAD with hx stenting now s/p CABG as above
-s/p CABG with CAZARES in situ to proximal LAD sequential to mid/distal LAD, [id number] - 12/21/23 - Dr. Virk
-elevated liver enzymes affected statin use
AFIB (paroxysmal), bradycardia:
-patient has already been initiated on warfarin as above ([id number] score is 7 for age, HTN, CAD, DM, and emboli)
-longest pause 3.5 seconds to my assessment
-amiodarone and metoprolol stopped- follow telemetry
HTN:
-patient actually with low BP and orthostasis, requiring midodrine. He was given unit of PRBC's yesterday, as well as albumin per nursing. Echo this AM pending.
DM:
-on insulin
Physical Exam
Vital Signs/Labs
Vital Signs
Temp Pulse Resp BP Pulse Ox
98.0 F 64 18 106/62 95
12/24/23 11:51 12/24/23 11:45 12/24/23 11:51 12/24/23 11:00 12/24/23 11:51
12/23/23 12/24/23 12/25/23
06:59 06:59 06:59
Actual Weight 64.1 kg 64.7 kg
12/24/23 03:13
12/24/23 03:13
PT 15.6 Sec (11.4-14.6) H 12/24/23 03:13
INR 1.26 12/24/23 03:13
APTT 44.7 Sec (23.4-35.0) H 12/21/23 21:51
Magnesium 2.1 mg/dl (1.6-2.3) 12/24/23 03:13
Physical Exam
Constitutional: No acute distress
EENT: Anicteric
Cardiovascular: Rhythm/rate is irregular
Respiratory: Respiratory effort normal and Lungs clear to auscul.
Neuro/Psych: AO x 3
Other: Skin (midsternal incision intact)
Data Reviewed
-
Date of Service: December 24, 2023
EKG: Other (AFIB with SVR and SR)
Labs: Labs Reviewed by me
[2023-12-24] MEDS: NSS IV (13:01)
[2023-12-24] MEDS: ProAmatine 10 MG PO ×2 (14:07→17:13)
[2023-12-24] MEDS: FERRLECIT 110 MG IV (14:11)
--- NOTE | 2023-12-24 16:21 | PTCARENOTE ---
Pt resting comfortably in chair; A-fib on monitor and VSS: assessment unchanged.
--- NOTE | 2023-12-24 16:48 | CM ---
dc plans remain home with IV antibx home infusion, cm awaiting script from ID to set up.
[2023-12-24] MEDS: COUMADIN 2.5 MG PO (17:13)
[2023-12-24 17:23] LABS: Glucose - Point of Care 183 mg/dl (70-99)
[2023-12-24] MEDS: NOVOLOG FLEXPEN-MODERATE RESISTANCE 1 UNITS SC (17:28)
[2023-12-24] MEDS: FLUSH (NSS) IV ×2 (19:59)
--- NOTE | 2023-12-24 20:19 | PTCARENOTE ---
Assumed care of patient from day shift RN. ZIONO x 3. Denies complaint. SR w/ 1 degree AV block on monitor. Pacer pads on. Room air 97%, Moist harsh cough with some thick sputum noted. Abdomen soft and non tender, appetite increasing. Voiding
pancho urine in urinal. plus one bilateral hand edema noted. Trace anasarca present. Plan for night discussed.
--- NOTE | 2023-12-24 21:00 | PTCARENOTE ---
Assist x 1 oob to bsc to preform a bowel movement. Pt stated some initial dizziness with ambulation but it resolved quickly. Pt using rolling walker to get back to bed, gait much better with use of walker.
[2023-12-24 22:30] LABS: Glucose - Point of Care 130 mg/dl (70-99)
[2023-12-25] VITALS (24 sets, daily range): BP systolic 79–119; BP diastolic 54–97; PULSE 110–124; O2SAT 100; BMI 24.3
--- NOTE | 2023-12-25 00:24 | PTCARENOTE ---
Sleeping soundly during routine rounds. VSS. Assessment unchanged from prior.
[2023-12-25 04:04] LABS: Ionized Calcium 1.17 mMOL/L (1.15-1.33)
[2023-12-25 04:05] LABS: Hematocrit 30.3 % (39.0-52.0); Hemoglobin 10.2 g/dL (13.0-18.0); Mean Corp Hgb Conc. 33.7 g/dL (33.0-37.0); Mean Corpuscular Hgb 29.6 pg (27.0-31.0); Mean Corpuscular Volume 87.8 fL (80.0-94.0); Mean Platelet Volume 10.3 fL (7.4-10.4); Platelet Count 168 10^3/uL (130-400); Red Blood Cell Count 3.45 10^6/uL (4.70-6.10); Red Cell Dist. Width 21.1 % (11.5-14.5); White Blood Cell Count 14.7 10^3/uL (4.8-10.8)
[2023-12-25 04:13] LABS: INR 1.56; PT 18.5 Sec (11.4-14.6)
--- NOTE | 2023-12-25 04:47 | W.PN.CT ---
Today's Communication / Plan
-
-No major issues overnight. Neurologically intact
-No further orthostasis. BP remains soft postop and currently on Midodrine. BB remains on hold. Will replete ca++ to help augment BP
-Repeat echo yesterday showed a well seated Bioprosthetic MVR without MR, EF 55-60%
-H/H is stable @ 10.2/30.3
-INR 1.56 today, was 1.26 yesterday. Received 2.5 mg Coumadin yesterday
-Will d/c Plavix when INR >/= 1.6
-Cont. Abx per ID, currently on Rocephin, will cont. x 6 wks per ID
-Encourage use of IS
-OOB into chair/Ambulate
-Home in 1-2 days
Assessment / Plan
-
-s/p chordal sparing MVR with 29 mm Hensley mitral valve and CABG x4 [CAZARES in situ to proximal LAD sequential to mid/distal LAD, [id number]] on 12/21/[address] Virk, pod #4
-intraop RICHARD: LVEF 55% pre and post, no wma
-transferred from [facility] on 12/19/2023 with infective endocarditis with mobile mitral valve vegetation and moderate mitral regurgitation.
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
-mv-CAD with a chronically totally occluded prox LAD
-anorexia, 30 lbs weight loss since August and left hallux pain with suspected embolic event to the L lower extremity
-hx CAD with prior stents
-HTN/HLD
-DM II
-Former smoker
-acute postop blood loss anemia - s/p total 5 pRBCs
-acute postop coagulopathy/thrombocytopenia - s/p 2 FFPs and 1 unit platelets
-acute postop atelectasis
-acute postop hypovolemia with subsequent hypervolemia
Discussed patient care with: Cardiology, Nursing, Respiratory Therapy, Pharmacy and Care Team
Subjective
Procedure
-s/p chordal sparing MVR with 29 mm Hensley mitral valve and CABG x4 [CAZARES in situ to proximal LAD sequential to mid/distal LAD, [id number]] on 12/21/[address] Virk
-
Date of Service: December 25, 2023
Pt c/o mild incisional pain and lightheadedness
Objective Data
-
Lab Results
12/25/23 03:48
PT 18.5 Sec (11.4-14.6) H 12/25/23 03:48
INR 1.56 12/25/23 03:48
APTT 44.7 Sec (23.4-35.0) H 12/21/23 21:51
Vital Signs
Vital Signs
Temp Pulse Resp BP Pulse Ox
97.4 F 82 16 98/65 94
12/25/23 03:55 12/25/23 03:55 12/25/23 03:55 12/24/23 23:38 12/25/23 03:55
CT Intake/Output/Weight
12/24/23 12/24/23 12/25/23
06:59 18:59 06:59
Intake Total 303.7 / 1211.0 230 / 710 480 / 710
Output Total 825 / 2930 300 / 1050 750 / 1050
Balance -521.3 / -1719.0 -70 / -340 -270 / -340
SaO2: 94 (RA)
Physical Exam
-
General: Awake, Oriented and AOx3
Cardiovascular: Regular rate & rhythm, No Murmurs, No Rub and No Gallop
Respiratory: Decreased Breath Sounds
Sternum: Stable
Incision: Clean, Dry, Intact and Dressing Intact
Extremities: Other (+trace edema)
Data Reviewed
-
Lab Results: Results Reviewed
Medications: Active Meds Reviewed
Chest X-Ray: Report Reviewed and Image Reviewed
ECG: Report Reviewed and Image Reviewed
[2023-12-25 04:59] LABS: Blood Urea Nitrogen 18 mg/dl (9-20); Calcium 8.5 mg/dl (8.4-10.2); Carbon Dioxide 32 mmol/L (22-30); Chloride 102 mmol/L (98-107); Estimated Creatinine Clearance 46 ml/min; Glucose 88 mg/dl (70-99); Magnesium 2.2 mg/dl (1.6-2.3); Potassium 4.2 mmol/L (3.5-5.1); Sodium 136 mmol/L (135-145); eGFR > 60.00
--- NOTE | 2023-12-25 05:25 | PTCARENOTE ---
Assisted x 1 with steady gait using rolling walker to [facility] Gown and linens changed. Standing scale weight obtained. Denies complaint. VSS. Assessment unchanged from prior.
[2023-12-25] MEDS: CALCIUM CHLORIDE 10% SYRINGE 60 MG IV (06:02)
[2023-12-25] MEDS: TYLENOL PO (06:03)
[2023-12-25 08:58] LABS: Glucose - Point of Care 125 mg/dl (70-99)
[2023-12-25] MEDS: LOW STRENGTH ASPIRIN 81 MG PO (09:27)
[2023-12-25] MEDS: ProAmatine 10 MG PO ×3 (09:27→18:09)
[2023-12-25] MEDS: MUCINEX 600 MG PO ×2 (09:28→20:40)
[2023-12-25] MEDS: PLAVIX 75 MG PO (09:28)
[2023-12-25] MEDS: PROTONIX 40 MG PO (09:28)
[2023-12-25] MEDS: NEURONTIN 100 MG PO ×3 (09:29→22:22)
[2023-12-25] MEDS: ROCEPHIN 2000 MG IV (09:29)
[2023-12-25] MEDS: SENOKOT-S PO ×2 (09:29→21:13)
[2023-12-25] MEDS: MAGNESIUM OXIDE 500 MG PO ×2 (09:29→20:40)
[2023-12-25] MEDS: STERILE WATER FOR INJECTION 20 ML IV (09:29)
[2023-12-25] MEDS: LANTUS 0.179999999999999993 UNITS SC (09:29)
[2023-12-25] MEDS: BACTROBAN 2% OINTMENT 1 APPLIC NASAL (09:30)
[2023-12-25] MEDS: NOVOLOG FLEXPEN-MODERATE RESISTANCE SC ×2 (09:30→18:09)
[2023-12-25] MEDS: FLUSH (NSS) 1 FLUSH IV ×3 (09:30→20:49)
--- NOTE | 2023-12-25 09:47 | PTCARENOTE ---
Patient received from cage shift manager resting comfortably in bed, AAO X 3, states pain controlled. NSR w/1st degree via cm, SaO2 @ 97% on RA. ARELIS PICC present, patent. All procedural sites stable. Patient assisted oob w/rolling walker to chair,
breakfast ordered - updated to plan of care for the day, in agreement. See work list for full assessment and interventions performed.
[2023-12-25] MEDS: NSS IV (11:53)
[2023-12-25] MEDS: TYLENOL 1000 MG PO ×2 (13:20→22:22)
[2023-12-25] MEDS: LASIX 40 MG PO (13:20)
[2023-12-25 13:21] LABS: Glucose - Point of Care 154 mg/dl (70-99)
[2023-12-25] MEDS: NOVOLOG FLEXPEN-MODERATE RESISTANCE 1 UNITS SC (13:21)
--- NOTE | 2023-12-25 13:49 | W.PN.ID1 ---
Date of Service
Date of Service: December 25, 2023
Today's Communication
Continue ceftriaxone.
Assessment / Plan
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
- s/p bioprosthetic mitral valve replacement (12/21/2023)
- cultures NG to date
Suspected embolic event to lower extremity
Left hallux pain
Leukocytosis
Mitral regurgitation
Angina
HTN
Dyslipidemia
DM type II
Renal insufficiency
Hx anemia
Recommendations:
Cultures currently pending. Given history, most likely etiology is viridans Streptococcus, although Hasek organisms are also possible
Patient S/P MVR
Continue with ceftriaxone. Will likely need 6 week course.
����������������������������������������������������������
Chief Complaint
-: Other (Mitral valve endocarditis)
Subjective / Review of Systems
Review of Systems: No Fever and No Chills
Vital Signs / Physical Exam
Vital Signs
Vital Signs
Temp Pulse Resp BP Pulse Ox
98.2 F 90 17 99/71 94
12/25/23 12:05 12/25/23 13:20 12/25/23 12:05 12/25/23 13:20 12/25/23 12:05
Physical Exam
Constitutional: No Acute Distress, Comfortable and Non-toxic
Cardiovascular: Irregular Rate and S1/S2; Negative S3/S4
Pulmonary: Clear and Non Labored; Negative Wheezes or Rales
Gastrointestinal: Soft, Non Distended, Normal Bowel Sounds, No Rebound and No Guarding
Extremities: Negative Edema, Cyanosis or Erythema
Skin: Negative Rash or Jaundice
Psychological: Calm
Objective Data
Lab Data
Lab Results
12/25/23 03:48
12/25/23 03:48
ESR 52 mm/hour (0-20) H 12/21/23 02:59
PT 18.5 Sec (11.4-14.6) H 12/25/23 03:48
INR 1.56 12/25/23 03:48
APTT 44.7 Sec (23.4-35.0) H 12/21/23 21:51
Estimated Creat Clear 46 ml/min 12/25/23 03:48
Total Bilirubin 0.6 mg/dl (0.2-1.3) 12/23/23 04:28
AST 52 U/L (17-59) 12/23/23 04:28
ALT 21 U/L (0-50) 12/23/23 04:28
Alkaline Phosphatase 53 U/L (38-126) 12/23/23 04:28
C-Reactive Protein 53.30 mg/L (0.0-10.00) H 12/21/23 02:59
Most recent labs reviewed.
Micro Results:
12/20/23 05:15 Blood Culture - Final
Blood/Venous No Growth - Final Report
12/20/23 04:27 Blood Culture - Final
Blood/Venous No Growth - Final Report
12/21/23 11:18 Fungal Culture - Preliminary
Valve Culture in progress.
Positive cultures are reported as soon as detected.
Final report to follow in four to five weeks.
12/21/23 11:18 Anaerobic Culture - Preliminary
Valve NO ANAEROBES ISOLATED
12/21/23 11:18 Tissue Culture - Preliminary
Valve No Growth After 72 Hours
Gram Stain - Preliminary
12/21/23 07:30 Urine Culture - Final
Urine NO GROWTH
12/21/23 11:18 Gram Stain - Final
Valve
--- NOTE | 2023-12-25 14:18 | CM ---
Reviewed chart. Telephone call to [facility] Liaison to make the referral. Left message. Faxed clinical information to [facility]. Telephone to [facility] to make a referral. Sent referral. Awaiting to hear back if [facility] and [facility] can accept the case. Medical work-up in progress. The discharge plan is to return home with his spouse and [facility] and [facility] if they accept the referral when medically stable.
--- NOTE | 2023-12-25 15:08 | PTCARENOTE ---
Rhythm change noted via cm, ELANA Cisse and SANDWICH WRAPPER Rosalina to bedside. BP stable, patient asymptomatic lying in bed. Drs. Fall and Sully on floor, updated. Patient transported to CCL via bed on CCL monitor for urgent ppm placement.
--- NOTE | 2023-12-25 16:23 | ITS.CL.PACE ---
[employer] - Pacemaker Implant
Pacemaker Implant
Procedure Report:
Dual Chamber Pacemaker Placement:
Mr. Khalil is a very pleasant 78 yrs old gentleman from [facility] with paroxysmal atrial fibrillation and new diagnosis of infectious endocarditis. 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
circ. He is now s/p CABG with CAZARES in situ to proximal LAD sequential to mid/distal LAD, [id number] and MVR 29 mm biological valve with autologous pericardial patch at the [place] A3 to P3 region. �Patient's epicardial pacing wires were removed
but started having long pauses with drop in blood pressure and pacemaker implantation was recommended urgently.
Indications: AV block
Date of the Procedure: 12/25/23
Pre-Operative Diagnosis: AV block
Post-Operative Diagnosis: AV block
Procedure Performed: DUAL CHAMBER PACEMAKER IMPLANTATION
Performing Physician:
Sreekanth Fall MD
Assistants:
EP staff
Anesthesia:
Midazolam 1 mg and Fentanyl 75 mcg
Pre-operative antibiotics:
Ancef
Detailed Description of the Procedure:
The patient was identified using hospital identification and informed consent obtained for the procedure. The risks were explained including, but not limited to: Bleeding, infection, arrhythmia, stroke, vascular/cardiac/lung puncture, surgery,
pacemaker dependency/device malfunction. All questions were answered.
The patient was brought to the electrophysiology laboratory in stable condition in fasting state. Continuous electrocardiographic and hemodynamic monitoring was initiated.
The initial rhythm was atrial fibrillation.
A surgical pause and time out was performed immediately prior to the procedure with review of her medical history, recent labs, allergies and medications with site of procedure identified and consent noted in the chart. Antibiotics pre operatively
given. All team members concurred.
The procedure site was meticulously prepared with surgical scrub and allowed to dry with no pooling. Sterile draping was applied to cover the procedure site. The image intensifier was draped with sterile bag and positioned over the patient.
The left infraclavicular region was prepped and draped in the usual sterile fashion. Local anesthesia was administered subcutaneously using 1% lidocaine / Bupivacaine. The left cephalic vein cutdown was performed with an incision at the
delto-pectoral groove, and vascular sheaths were introduced for lead access. These were advanced into the right ventricle and the right atrium.
There were extreme tortuosity noted in the subclavian vein and long sheaths were needed. The cardiac chambers were rotated as well.
The right ventricular lead was secured in position with an active fixation technique at the septal location.
The RA lead was attached in the right atrial appendage with active fixation.
There was excellent sensing, pacing, and impedance from the leads, with no diaphragmatic stimulation at 10 V output.�Bovie cautery, antibiotics, and fluoroscopy were used.
The sheaths were withdrawn, and the thresholds remained acceptable. The leads were secured in position at the venous entry site with 0-silk. A pocket was fashioned contiguous to the incision. The electrode terminals were connected to the pulse
generator, which was placed into the pocket. The wound was irrigated thoroughly with antibiotic solution.
At that exposure was installed around the lead and the device.
The wound was closed in 3 layers using 2-0 V loc then two layers of 4-0 V loc sutures to the dermis. Steri-strips were applied externally and covered with Aquacel bandage.
Procedure End:
The procedure was tolerated well.
Estimated Blood loss:
5 cc
Specimens Removed:
No cultures and no specimens were obtained. No intraoperative pathology was identified.
Fluoro time:
1.2 min / 4.45mGy
Urine output:
None
Packs / Drains/ Tubes:
None
Instrument / Sponge Count Correct:
Yes
Complications of the Procedure:
None
Condition of Patient at Time of Transfer:
Hemodynamically stable with no neurological or vascular compromise.
Device information:�
Generator: [employer]; Model: W1DR01; Serial # [id number]
Atrial Lead:
[employer]; Model: 5076-45; Serial # [id number]
Measured data in the right atrium was sensing of 2.8 mV, impedance of 874 ohms and threshold not tested due to AF.
RV Lead:
[employer]; Model: 5076-52; Serial # [id number]
Measured data in the RV lead was sensing of 5.1mV, impedance of 684 ohms and threshold of 0.5 V at 0.4ms�
Moisés parameter settings were AAIR < = > DDDR 60-130 bpm. �
����������� Mode Switch: On
����������� Paced AV interval: 180ms
����������� Sensed AV interval: 150 ms.
����������� Rate Adaptive A-V Interval: Off
Output parameters:
����������������������� Amplitude (V)������������� Pulse Width (ms)������� Sensitivity (mV)
����������� RA: ���� 3.5 ����������������� ����������� 0.4������������������ ����������� 0.3
����������� RV:����� 3.5������������������ ����������� 0.4������������������ ����������� 0.9
Summary:
Successful implantation of MRI compatible dual chamber pacemaker
Results/Recommendations:
-Please follow up CXR�
1. Please provide patient with adequate pain control�
Instructions to be given to patient:�
- Please follow up with [facility] at [address] [place] [phone] ([phone]) to get your wound checked within 14 days of your discharge.
- Do not wet incision site until after it is evaluated at cardiology clinic. No soaking or bath until then. Showers or Sponge baths are OK.�Dab dry the area after a shower.
- Do not lift left elbow above shoulder, particularly with sudden jerking movements, for 1 month�
- Do not lift anything weighing more than 10 pounds with the left arm for 1 month�
- If you notice any fevers, shortness of breath, lightheadedness, chest pain, or worsening swelling in the wound site, please contact the arrhythmia clinic, contact your drug enforcement agent, or present to the hospital for evaluation.�
Sreekanth Fall MD
Electrophysiology
[2023-12-25 17:49] LABS: Glucose - Point of Care 138 mg/dl (70-99)
--- NOTE | 2023-12-25 18:00 | PTCARENOTE ---
Rec'd report from Liv in the rn labor and delivery & rec'd the pt AAOx3 s/p L chest wall PPM. Pt is POD#4 S/P CABGx4. Pt w/no c/o of pain at this time. Pt's VS stable w/HR in the 70's. Pt's BP low at 95/55; PO midodrine administered as ordered. Pt w/new L
chest wall PPM w/Aquacell dressing C/D/I & L sling in place. Assisted pt w/calling for dinner. Pt w/call deshpande within reach & plan of care ongoing.
[2023-12-25] MEDS: ANCEF 5 IV (20:40)
[2023-12-25] MEDS: COUMADIN 2.5 MG PO (20:41)
[2023-12-25] MEDS: FLUSH (NSS) IV ×2 (21:13)
[2023-12-25 22:52] LABS: Glucose - Point of Care 164 mg/dl (70-99)
[2023-12-26] VITALS (9 sets, daily range): BP systolic 95–124; BP diastolic 56–83; PULSE 89–107
--- NOTE | 2023-12-26 03:48 | DOWNTIME ---
There was a [employer] Downtime on 12/26/2023 from 0100 to 12/26/2023 at 0337. Downtime documentation of patient's care, including medication administrations, has been reconciled in the electronic record per guidelines. Refer to the
patient's paper chart under the miscellaneous tab to see printed paper medication records and downtime forms.
[2023-12-26] MEDS: ANCEF 5 IV (04:42)
[2023-12-26] MEDS: TYLENOL 1000 MG PO ×3 (05:00→22:14)
[2023-12-26 05:26] LABS: Hematocrit 31.2 % (39.0-52.0); Hemoglobin 10.3 g/dL (13.0-18.0); Mean Corpuscular Hgb 29.3 pg (27.0-31.0); Mean Corpuscular Volume 88.6 fL (80.0-94.0); Mean Platelet Volume 10.5 fL (7.4-10.4); Platelet Count 173 10^3/uL (130-400); Red Blood Cell Count 3.52 10^6/uL (4.70-6.10); Red Cell Dist. Width 21.8 % (11.5-14.5); White Blood Cell Count 13.1 10^3/uL (4.8-10.8)
[2023-12-26 05:37] LABS: INR 1.75; PT 20.3 Sec (11.4-14.6)
[2023-12-26 05:56] LABS: Blood Urea Nitrogen 17 mg/dl (9-20); Calcium 8.7 mg/dl (8.4-10.2); Carbon Dioxide 31 mmol/L (22-30); Chloride 99 mmol/L (98-107); Estimated Creatinine Clearance 46 ml/min; Glucose 86 mg/dl (70-99); Magnesium 2.3 mg/dl (1.6-2.3); Potassium 3.7 mmol/L (3.5-5.1); Sodium 135 mmol/L (135-145); eGFR > 60.00
--- NOTE | 2023-12-26 06:28 | W.PN.CT ---
Today's Communication / Plan
-
Plan
-No major issues overnight.
-now s/p PPM insertion 12/24 with pacer backup 70bpm
-Neurologically intact
-No further orthostasis. BP remains soft postop and currently on Midodrine. BB remains on hold
-echo 12/23 showed a well seated Bioprosthetic MVR without MR, EF 55-60%
-H/H is stable @ 10.3
-INR 1.75 today from 1.56 yesterday. Received 2.5 mg Coumadin yesterday
-d/c Plavix, INR >/= 1.6
-Cont. Abx per ID, currently on Rocephin, will cont. x 6 wks per ID (RUE PICC placed 12/24)
-Encourage use of IS
-OOB into chair/Ambulate
-dispo planning
Assessment / Plan
-
-s/p chordal sparing MVR with 29 mm Hensley mitral valve and CABG x4 [CAZARES in situ to proximal LAD sequential to mid/distal LAD, [id number]] on 12/21/[address] Virk, pod #5
-intraop RICHARD: LVEF 55% pre and post, no wma
-s/p PPM insertion 12/25/23
-transferred from [facility] on 12/19/2023 with infective endocarditis with mobile mitral valve vegetation and moderate mitral regurgitation.
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
-mv-CAD with a chronically totally occluded prox LAD
-anorexia, 30 lbs weight loss since August and left hallux pain with suspected embolic event to the L lower extremity
-hx CAD with prior stents
-HTN/HLD
-DM II
-Former smoker
-acute postop blood loss anemia - s/p total 5 pRBCs
-acute postop coagulopathy/thrombocytopenia - s/p 2 FFPs and 1 unit platelets
-acute postop atelectasis
-acute postop hypovolemia with subsequent hypervolemia
Discussed patient care with: Care Team
Subjective
Procedure
-s/p chordal sparing MVR with 29 mm Hensley mitral valve and CABG x4 [CAZARES in situ to proximal LAD sequential to mid/distal LAD, [id number]] on 12/21/[address] Virk
-
Date of Service: December 26, 2023
Objective Data
-
Lab Results
12/25/23 03:48
12/25/23 03:48
PT 18.5 Sec (11.4-14.6) H 12/25/23 03:48
INR 1.56 12/25/23 03:48
APTT 44.7 Sec (23.4-35.0) H 12/21/23 21:51
Vital Signs
Vital Signs
Temp Pulse Resp BP Pulse Ox
98.9 F 65 18 79/54 97
12/25/23 19:25 12/25/23 18:30 12/25/23 19:25 12/25/23 18:30 12/25/23 19:25
CT Intake/Output/Weight
12/25/23 12/25/23 12/26/23
06:59 18:59 06:59
Intake Total 480 / 710 240 / 240
Output Total 850 / 1150 575 / 775 200 / 775
Balance -370 / -440 -335 / -535 -200 / -535
SaO2: 97
Physical Exam
-
General: Awake, Oriented and AOx3
Cardiovascular: Regular rate & rhythm
Respiratory: Clear and Equal
Sternum: Stable and Unstable
Incision: Dry and Intact
Extremities: Edema +1
Vital Signs / Labs
-
Vital Signs and Labs:
Temp Pulse Resp BP Pulse Ox
98.6 F 70 16 102/83 98
12/26/23 04:27 12/26/23 05:00 12/26/23 04:27 12/26/23 04:27 12/26/23 04:27
12/26/23 04:40
12/26/23 04:40
12/25/23 12/25/23 12/25/23
08:54 13:20 17:37
WBC
RBC
Hgb
Hct
RDW
MPV
PT
Carbon Dioxide
POC Glucose 125 H 154 H 138 H
12/25/23 12/26/23
22:47 04:40
WBC 13.1 H
RBC 3.52 L
Hgb 10.3 L
Hct 31.2 L
RDW 21.8 H
MPV 10.5 H
PT 20.3 H
Carbon Dioxide 31 H
POC Glucose 164 H
[2023-12-26 06:54] LABS: Glucose - Point of Care 165 mg/dl (70-99)
[2023-12-26] MEDS: MUCINEX 600 MG PO ×2 (08:21→20:32)
[2023-12-26] MEDS: NEURONTIN 100 MG PO ×3 (08:21→22:14)
[2023-12-26] MEDS: LOW STRENGTH ASPIRIN 81 MG PO (08:21)
[2023-12-26] MEDS: PROTONIX 40 MG PO (08:21)
[2023-12-26] MEDS: MAGNESIUM OXIDE 500 MG PO ×2 (08:21→20:32)
[2023-12-26] MEDS: SENOKOT-S 1 TABLET PO (08:21)
[2023-12-26] MEDS: FLUSH (NSS) IV ×4 (08:22→20:58)
[2023-12-26] MEDS: ProAmatine 10 MG PO ×3 (08:23→18:04)
[2023-12-26] MEDS: NOVOLOG FLEXPEN-MODERATE RESISTANCE 1 UNITS SC (08:30)
[2023-12-26] MEDS: LANTUS 0.179999999999999993 UNITS SC (08:54)
--- NOTE | 2023-12-26 09:04 | W.PN.ID1 ---
Date of Service
Date of Service: December 26, 2023
Today's Communication
Continue abx.
Assessment / Plan
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
- s/p bioprosthetic mitral valve replacement (12/21/2023)
- cultures NG to date
Suspected embolic event to lower extremity
Left hallux pain
Leukocytosis
Mitral regurgitation
Angina
HTN
Dyslipidemia
DM type II
Renal insufficiency
Hx anemia
Recommendations:
Bacterial cultures without growth (finalized). Fungal cultures pending but doubt will be positive.
Given history, most likely etiology is viridans Streptococcus, although Hasek organisms are also possible.
Patient S/P MVR (12/21/23).
Continue with ceftriaxone. Will continue with 6 week course of rocephin (through 02/01/24).
Will place IV infusion rx on paper chart.
����������������������������������������������������������
Chief Complaint
-: Other (Mitral valve endocarditis)
Subjective / Review of Systems
Patient was seen and examined. S/p PPM placement for rate control. No specific complaints at present.
Review of Systems: No Fever and No Chills
Vital Signs / Physical Exam
Vital Signs
Vital Signs
Temp Pulse Resp BP Pulse Ox
97.4 F 76 18 95/59 95
12/26/23 06:53 12/26/23 07:00 12/26/23 06:53 12/26/23 06:49 12/26/23 06:53
Physical Exam
Constitutional: No Acute Distress, Comfortable and Non-toxic
Eyes: No Conjunctival Hemorrhage and Sclera Anicteric
Cardiovascular: Regular Rate and S1/S2; Negative S3/S4
Pulmonary: Clear and Non Labored; Negative Wheezes or Rales
Gastrointestinal: Soft, Non Distended, Normal Bowel Sounds, No Rebound and No Guarding
Extremities: Negative Edema, Cyanosis or Erythema
Skin: Negative Rash or Jaundice
Wound: Other (PPM incisional wound dressed without strikethrough. Sternal wounds healing without periwound eryhtema.)
Neurological: Awake and Alert
Psychological: Calm
Objective Data
Lab Data
Lab Results
12/26/23 04:40
12/26/23 04:40
ESR 52 mm/hour (0-20) H 12/21/23 02:59
PT 20.3 Sec (11.4-14.6) H 12/26/23 04:40
INR 1.75 12/26/23 04:40
APTT 44.7 Sec (23.4-35.0) H 12/21/23 21:51
Estimated Creat Clear 46 ml/min 12/26/23 04:40
Total Bilirubin 0.6 mg/dl (0.2-1.3) 12/23/23 04:28
AST 52 U/L (17-59) 12/23/23 04:28
ALT 21 U/L (0-50) 12/23/23 04:28
Alkaline Phosphatase 53 U/L (38-126) 12/23/23 04:28
C-Reactive Protein 53.30 mg/L (0.0-10.00) H 12/21/23 02:59
Most recent labs reviewed.
Micro Results:
12/20/23 05:15 Blood Culture - Final
Blood/Venous No Growth - Final Report
12/20/23 04:27 Blood Culture - Final
Blood/Venous No Growth - Final Report
12/21/23 11:18 Fungal Culture - Preliminary
Valve Culture in progress.
Positive cultures are reported as soon as detected.
Final report to follow in four to five weeks.
12/21/23 11:18 Anaerobic Culture - Preliminary
Valve NO ANAEROBES ISOLATED
12/21/23 11:18 Tissue Culture - Preliminary
Valve No Growth After 72 Hours
Gram Stain - Preliminary
12/21/23 07:30 Urine Culture - Final
Urine NO GROWTH
12/21/23 11:18 Gram Stain - Final
Valve
Care Review
Plan reviewed with: Physician (CT Surgery )
--- NOTE | 2023-12-26 09:18 | W.PN.CD ---
Addendum entered and electronically signed by Wilfrid Boyle MD 12/26/23 09:28:
NOte: will need to monitor INR closely on amidarone. Coumadin requirements will decrease on amio.
Original Note:
Today's Communication / Plan
-
due to BP issues would stop Toprol and use amiodarone
coumadin dosing being directed by CT surgery
pacer site is fine
dressing will need to be removed one wek after implant which is 01/01/24
Impression / Plan
-
78-year-old gentleman transferred from [facility] with new diagnosis of infectious endocarditis. 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 He is now s/p CABG with CAZARES in situ to proximal
LAD sequential to mid/distal LAD, [id number] and MVR 29 mm biological valve with autologous pericardial patch at the [place] A3 to P3 region.
MV endocarditis:
-s/p chordal sparing MVR with 29 mm Hensley bioprosthetic mitral valve and patch - 12/21/23 - Dr. Virk
-currently on ASA, plavix, wand warfarin with plan to discontinue plavix once INR >1.6.
-Possible lower extremity infected emboli
-f/u culture, ID is following, on ABX, getting PICC
-echo this AM is pending
CAD with hx stenting now s/p CABG as above
-s/p CABG with CAZARES in situ to proximal LAD sequential to mid/distal LAD, [id number] - 12/21/23 - Dr. Virk
-elevated liver enzymes affected statin use
AFIB (paroxysmal), bradycardia:
-patient has already been initiated on warfarin as above ([id number] score is 7 for age, HTN, CAD, DM, and emboli)
-longest pause 3.5 seconds to my assessment
-amiodarone and metoprolol stopped-
- - with BP issues would use amiodarone and stop toprol
HTN:
-patient actually with low BP and orthostasis, requiring midodrine. He was given unit of PRBC's yesterday, as well as albumin per nursing.
DM:
-on insulin
Physical Exam
Vital Signs/Labs
Vital Signs
Temp Pulse Resp BP Pulse Ox
97.4 F 76 18 95/59 95
12/26/23 06:53 12/26/23 07:00 12/26/23 06:53 12/26/23 06:49 12/26/23 06:53
12/25/23 12/26/23 12/27/23
06:59 06:59 06:59
Actual Weight 64.1 kg
12/26/23 04:40
12/26/23 04:40
PT 20.3 Sec (11.4-14.6) H 12/26/23 04:40
INR 1.75 12/26/23 04:40
APTT 44.7 Sec (23.4-35.0) H 12/21/23 21:51
Magnesium 2.3 mg/dl (1.6-2.3) 12/26/23 04:40
Physical Exam
Constitutional: No acute distress
Cardiovascular: Rhythm & rate is regular and Other (pacer siteis fine)
Respiratory: Respiratory effort normal
GI: Soft
Neuro/Psych: Alert
Data Reviewed
-
Date of Service: December 26, 2023
Medical Decision Making: Reviewed Test Results
EKG: Report Reviewed by me
X-Ray/CT/US/MRI/NUC/PET: Report Reviewed by me
Medical Tests (PFT, Pathology etc): Report Reviewed by me
[2023-12-26] MEDS: PACERONE 200 MG PO ×2 (10:12→20:32)
[2023-12-26] MEDS: ROCEPHIN 2000 MG IV (10:13)
[2023-12-26] MEDS: STERILE WATER FOR INJECTION 20 ML IV (10:15)
[2023-12-26] MEDS: FLUSH (NSS) 1 FLUSH IV (10:16)
--- NOTE | 2023-12-26 11:27 | CM ---
Addendum entered by Ifeoma Mclain RN 12/26/23 14:14:
Patient accepted to [facility]. and patient made aware. Patient will need wheelchair van set up and to call payment. Patient will also need covid swab before transfer.
Addendum entered by Ifeoma Mclain RN 12/26/23 11:30:
Patient's prefers [facility] for location. Plan is for the patient to go to SNF when medically stable. CM to follow
Original Note:
Chart reviewed. Patient is independent of ADLS, lives with his in a 1 STH, total of 5 MAYANK, 0 DME. PT evaluation recommending SNF. I spoke to the patient and his and they are in agreement. Referrals sent to Kalia Randhawa
at [facility]
--- NOTE | 2023-12-26 12:13 | PN.CDI ---
CDI
- -
CDI:
Physician Documentation Request
Admit Date: 12/19/23 17:28
Dear Doctor Sully,
Patient is s/p chordal sparing MVR and CABG x 4. Pt underwent PPM insertion on 12/24
Indications on report states 'AV block'
Please provide further specificity to the type of AV block the pacemaker was placed for:
Second degree (type I or II)
Complete /Third degree
Other
Use of terms such as suspected, likely, concern for, or probable (associated with a specific diagnosis that is being evaluated, monitored, or treated as if it exists) are acceptable and can be coded in the inpatient setting, when documented at the
time of discharge.
Thank you,
Antionette Mcdowell RN, BSN
CDI Specialist
[place] text
Please use your independent medical judgment in providing your response.
[2023-12-26 13:53] LABS: Glucose - Point of Care 138 mg/dl (70-99)
[2023-12-26] MEDS: NSS IV (13:55)
[2023-12-26] MEDS: NOVOLOG FLEXPEN-MODERATE RESISTANCE SC ×2 (13:55→17:41)
[2023-12-26 17:38] LABS: Glucose - Point of Care 131 mg/dl (70-99)
--- NOTE | 2023-12-26 18:00 | PTCARENOTE ---
Pt denies any chest pain, incisional pain or sob. Assisted oob to the chair for lunch and tolerated for about 1 - 2 hours. Gait steady with 1 assist and the walker.
[2023-12-26] MEDS: COUMADIN 2.5 MG PO (18:05)
[2023-12-26] MEDS: SENOKOT-S PO (20:34)
[2023-12-26 22:23] LABS: Glucose - Point of Care 94 mg/dl (70-99)
--- NOTE | 2023-12-26 23:17 | PTCARENOTE ---
Received pt at handoff. AOx3. Assessment noted as document. Pt currently has no complaints. L chest wall w/ steri-strips and aquacel c/d/i. Currently in bed; call deshpande w/in reach.
[2023-12-27] VITALS (19 sets, daily range): BP systolic 101–128; BP diastolic 55–85
[2023-12-27] MEDS: TYLENOL 1000 MG PO (05:14)
--- NOTE | 2023-12-27 06:26 | W.PN.CT ---
Today's Communication / Plan
-
Plan
-NAEON
-slow AFlutter, now s/p PPM insertion 12/24 with pacer backup
-no plans for BB per cardiology recs, amio increased
-No further orthostasis. BP remains soft postop and currently on Midodrine 10 TID
-echo 12/23 showed a well seated Bioprosthetic MVR without MR, EF 55-60%
-INR pending today, 1.75 yesterday. Received 2.5 mg Coumadin yesterday
-Cont. Abx per ID, currently on Rocephin, will cont. x 6 wks per ID (RUE PICC placed 12/24)
-Encourage use of IS
-OOB into chair/Ambulate
-dispo planning: possibly d/c today to SNF
Assessment / Plan
-
-s/p chordal sparing MVR with 29 mm Hensley mitral valve and CABG x4 [CAZARES in situ to proximal LAD sequential to mid/distal LAD, [id number]] on 12/21/[address] Virk, pod #6
-intraop RICHARD: LVEF 55% pre and post, no wma
-s/p PPM insertion 12/25/23
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
-mv-CAD with a chronically totally occluded prox LAD
-anorexia, 30 lbs weight loss since August and left hallux pain with suspected embolic event to the L lower extremity
-hx CAD with prior stents
-HTN/HLD
-DM II
-Former smoker
-acute postop blood loss anemia - s/p total 5 pRBCs
-acute postop coagulopathy/thrombocytopenia - s/p 2 FFPs and 1 unit platelets
-acute postop atelectasis
-acute postop hypovolemia with subsequent hypervolemia
Discussed patient care with: Care Team
Subjective
Procedure
-s/p chordal sparing MVR with 29 mm Hensley mitral valve and CABG x4 [CAZARES in situ to proximal LAD sequential to mid/distal LAD, [id number]] on 12/21/[address] Virk
-
Date of Service: December 27, 2023
Objective Data
-
Lab Results
12/26/23 04:40
12/26/23 04:40
PT 20.3 Sec (11.4-14.6) H 12/26/23 04:40
INR 1.75 12/26/23 04:40
APTT 44.7 Sec (23.4-35.0) H 12/21/23 21:51
Vital Signs
Vital Signs
Temp Pulse Resp BP Pulse Ox
98.7 F 60 20 104/56 97
12/26/23 20:23 12/26/23 20:32 12/26/23 20:23 12/26/23 20:32 12/26/23 20:30
CT Intake/Output/Weight
12/26/23 12/26/23 12/27/23
06:59 18:59 06:59
Intake Total 100 / 340
Output Total 675 / 1250
Balance -575 / -910
SaO2: 97
Physical Exam
-
General: Awake, Oriented and AOx3
Cardiovascular: Regular rate & rhythm
Respiratory: Clear and Equal
Sternum: Stable
Incision: Clean, Dry and Intact
Extremities: Edema +1
Data Reviewed
-
Lab Results: Results Reviewed
Medications: Active Meds Reviewed
Chest X-Ray: Image Reviewed
Vital Signs / Labs
-
Vital Signs and Labs:
Temp Pulse Resp BP Pulse Ox
97.4 F 63 16 104/64 98
12/27/23 05:13 12/27/23 05:12 12/27/23 05:13 12/27/23 05:12 12/27/23 05:13
12/26/23 04:40
12/26/23 04:40
12/26/23 12/26/23 12/26/23
06:52 13:51 17:36
POC Glucose 165 H 138 H 131 H
--- NOTE | 2023-12-27 07:46 | W.PN.UPDATE ---
Update Note
Progress Note Update
I reviewed CT angiogram dated 12/25/2023. Please see my full consultation from 12/20/2023. At that time had suspected concern for left lower extremity arterial findings to be related to a possible embolic issue and that is why had obtained CT
angiogram. CTA does demonstrate occlusion of the distal SFA. To my interpretation though there is eccentric plaque, it does appear to be potentially a embolic or thrombotic process. The thrombus somewhat trails into the point of occlusion (or
trails backwards from it) and there is not really well-developed collaterals around there. This all suggest more of an embolic process. The runoff below the knee also is questionable if there is some degree of thrombus or clot within the outflow.
The CT scan is not the best for the infrapopliteal runoff. Regardless as I discussed in my note prior, there was no urgent indication for revascularization. Would allow full recovery from his cardiac surgery. Then he can follow-up with me in the
office hopefully in the next 1 to 2 months and we can discuss potential angiography and revascularization if warranted or needed.
[2023-12-27 07:49] LABS: Glucose - Point of Care 90 mg/dl (70-99)
--- NOTE | 2023-12-27 07:59 | W.PN.CD ---
Addendum entered and electronically signed by Wilfrid Boyle MD 12/28/23 17:20:
ECG with showed atrial flutterl ( atypical )
Addendum entered and electronically signed by Wilfrid Boyle MD 12/27/23 08:50:
Head CT with Multifocal intracranial acute hemorrhages . Tiny subarachnoid bleed in the superior left parietal lobe.
Also with acute first rib fx non displaced on cervical spine CT.
CT surgery reversing anticoagulation and contacting neruosurgery
Original Note:
Today's Communication / Plan
-
Syncope. No evidence of arrhythmia. Suspect orthostatic hypotension considering this patient's had some issues with lower blood pressures and this occurred while standing to be weighed. His blood pressures in bed have been stable and reportedly
his systolic blood pressure was 07/14/2014 this morning. No evidence of hypotension while back in bed.
-Await results of head CT and neck CT considering recent trauma and patient on anticoagulation. Further assessment as directed by CT surgery
-Echocardiogram -rule out pericardial effusion
-Continue midodrine for blood pressure
-Labs including CBC and renal profile
-Optimize volume status
Impression / Plan
-
78-year-old gentleman transferred from [facility] with new diagnosis of infectious endocarditis. 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 He is now s/p CABG with CAZARES in situ to proximal
LAD sequential to mid/distal LAD, [id number] and MVR 29 mm biological valve with autologous pericardial patch at the [place] A3 to P3 region.
Patient with PAF postoperatively. Conversion pauses. Ultimately patient had dual-chamber pacemaker implanted. He had some issues with low blood pressures and has been on midodrine.
Events from this morning
In the morning on 12/27/2023 patient was being weighed and then slumped to the ground with syncopal episode. It was suspected that he hit his head. Code 9 was called but patient had stable heart rate and blood pressure on arrival. Review of
telemetry with no significant arrhythmias. On initial evaluation CT surgery team including Dr. Virk at the bedside. Patient awake alert answering questions not complaining of any pain. No overt evidence of trauma. Neck collar was placed with
plan for patient to have head and neck CT as ordered by CT surgery.
Syncope. No evidence of arrhythmia. Suspect orthostatic hypotension considering this patient's had some issues with lower blood pressures and this occurred while standing to be weighed. His blood pressures in bed have been stable and reportedly
his systolic blood pressure was 07/14/2014 this morning. No evidence of hypotension while back in bed.
-Await results of head CT and neck CT considering recent trauma and patient on anticoagulation. Further assessment as directed by CT surgery
-Echocardiogram
-Continue midodrine for blood pressure
-Labs including CBC and renal profile
-Optimize volume status
MV endocarditis:
-s/p chordal sparing MVR with 29 mm Hensley bioprosthetic mitral valve and patch - 12/21/23 - Dr. Virk
-currently on ASA, plavix, wand warfarin with plan to discontinue plavix once INR >1.6.
-Possible lower extremity infected emboli
-f/u culture, ID is following, on ABX,
CAD with hx stenting now s/p CABG as above
-s/p CABG with CAZARES in situ to proximal LAD sequential to mid/distal LAD, [id number] - 12/21/23 - Dr. Virk
-elevated liver enzymes affected statin use
AFIB (paroxysmal), bradycardia:
-patient has already been initiated on warfarin as above ([id number] score is 7 for age, HTN, CAD, DM, and emboli)
-Patient with issues with long conversion pauses and underwent pacemaker implantation
-Metoprolol stopped due to blood pressure issues.
- -Continue amiodarone which will provide some rate control and hopefully will ultimately provide
Hypotension -
-Check echo to rule out pericardial effusion
-Continue midodrine
DM:
-on insulin
Physical Exam
Vital Signs/Labs
Vital Signs
Temp Pulse Resp BP Pulse Ox
97.2 F 63 20 104/64 98
12/27/23 07:32 12/27/23 05:12 12/27/23 07:32 12/27/23 05:12 12/27/23 07:32
PT 20.3 Sec (11.4-14.6) H 12/26/23 04:40
INR 1.75 12/26/23 04:40
APTT 44.7 Sec (23.4-35.0) H 12/21/23 21:51
Magnesium 2.3 mg/dl (1.6-2.3) 12/26/23 04:40
Physical Exam
Constitutional: No acute distress
Cardiovascular: Rhythm & rate is regular and Other (Pacer site fine)
Respiratory: Respiratory effort normal
GI: Soft
Neuro/Psych: Alert
Data Reviewed
-
Date of Service: December 27, 2023
Medical Decision Making: Reviewed Test Results
Echo: Report Reviewed by me
Medical Tests (PFT, Pathology etc): Report Reviewed by me
Labs: Labs Ordered by me
--- NOTE | 2023-12-27 08:04 | W.PN.UPDATE ---
Update Note
Progress Note Update
Patient was getting OOB this AM and c/o dizziness. Nursing sat patient on edge of bed and patient continued to loose consciousness. He was witnessed to fall on the ground and hit his head. When I arrived to the scene, patient was breathing and had a
pulse but was unresponsive. He was put back into bed and after 3 minutes patient regained consciousness.
Plan:
- Discharge cancelled
- STAT labs, CTH, and TTE to rule out effusion.
- Pt's was contacted and a voicemail was left.
[2023-12-27 08:26] LABS: Hematocrit 33.2 % (39.0-52.0); Hemoglobin 10.8 g/dL (13.0-18.0); Mean Corp Hgb Conc. 32.5 g/dL (33.0-37.0); Mean Corpuscular Hgb 29.1 pg (27.0-31.0); Mean Corpuscular Volume 89.5 fL (80.0-94.0); Mean Platelet Volume 10.5 fL (7.4-10.4); Platelet Count 186 10^3/uL (130-400); Red Blood Cell Count 3.71 10^6/uL (4.70-6.10); Red Cell Dist. Width 22.3 % (11.5-14.5); White Blood Cell Count 13.9 10^3/uL (4.8-10.8)
[2023-12-27 08:28] LABS: INR 2.03; PT 23.2 Sec (11.4-14.6)
[2023-12-27 08:37] LABS: Blood Urea Nitrogen 19 mg/dl (9-20); Calcium 8.3 mg/dl (8.4-10.2); Carbon Dioxide 33 mmol/L (22-30); Chloride 100 mmol/L (98-107); Estimated Creatinine Clearance 51 ml/min; Glucose 88 mg/dl (70-99); Potassium 3.9 mmol/L (3.5-5.1); Sodium 135 mmol/L (135-145); eGFR > 60.00
--- NOTE | 2023-12-27 09:00 | PTCARENOTE ---
Pt transferred to CVICU in bed after STAT CT Head.
[2023-12-27] MEDS: AQUAMEPHYTON 51 MG IV (09:07)
--- NOTE | 2023-12-27 09:17 | PN.CDI ---
CDI
- -
CDI:
Physician Documentation Request
Admit Date: 12/19/23 17:28
Dear Doctor [place],
Signed EKG's from 12/25 and 12/26 show atrial flutter.
If possible, please provide further specificity regarding atrial flutter:
Typical Atrial Flutter - Type I: Classic or common atrial flutter, Rate is 240-340 beats/min. Usually responds to atrial pacing.
Atypical Atrial Flutter - Type II: Less common and more unstable. Rate is 340-440 beats/min. Less responsive to atrial pacing.
Other - please specify
Use of terms such as suspected, likely, concern for, or probable (associated with a specific diagnosis that is being evaluated, monitored, or treated as if it exists) are acceptable and can be coded in the inpatient setting, when documented at the
time of discharge.
Thank you,
Antionette Mcdowell RN, BSN
CDI Specialist
tiger text
Please use your independent medical judgment in providing your response.
--- NOTE | 2023-12-27 09:23 | W.DCSUMMARY ---
Addendum entered and electronically signed by Sagar Virk MD 12/28/23 10:21:
Correction: He was not septic on arrival, he was stable, not requiring any vaso active medications. He did have evidence of volume overload.
Addendum entered and electronically signed by Sagar Virk MD 12/28/23 10:18:
Correction: Mr. Rafael Khalil was referred to me with the diagnosis of mitral valve endocarditis. He understand [facility] with us and was found to have multi vessel CAD requiring CABG at time of MV replacement. His admitting diagnosis is endocarditis of
the mitral valve.
Original Note:
Discharge Summary
Discharge Data
Date of Admission: 12/19/23
Date of Discharge: 12/27/23
Total time spent discharging patient (in min): 40
-
Pending Results: No
Hospital Course
Primary care physician:
Dr. Brunner
Outpatient trombone slide assembler:
Dr. Weinstein
Inpatient consultants:
CBC, neurosurgery, anesthesia, infectious disease, blending tank tender helper
Procedures:
1. Coronary artery bypass grafting x 4 with LAD coronary endarterectomy [CAZARES in situ to proximal LAD sequential to mid/distal LAD, [id number]] (on 12/20)
2. Chordal sparing mitral valve replacement [29 mm biological valve] with autologous pericardial patch at the [place] A3 to P3 region (on 12/20)
3. 12/24 LACW DUAL CHAMBER PACEMAKER IMPLANTATION (Generator: Medtronic; Model: [id number]; Serial # [id number])
Primary Diagnosis:
1. Mitral Valve endocarditis
Secondary Diagnoses:
1. Multivessel coronary disease involving the proximal LAD with a chronically total occluded proximal LAD
2. 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
3. 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
4. Former tobacco abuse
5. Ydn-ijhjmnu-pqeiosjsc diabetes
6. Hypertension
7. Hyperlipidemia
8. Witness fall resulting in intraparachemal hemorrhage
HPI: 78-year-old male who has known moderate mitral valve insufficiency. He was seen at an outside facility for left lower extremity leg pain and weight loss. He was found to have leukocytosis and positive blood cultures and underwent
transthoracic echocardiographic evaluation. He was found to have a significant 2 cm mobile vegetation on his mitral valve flipping from atrial to ventricular side. He also had evidence of thromboembolic phenomenon with splenic infarcts on CT
imaging. He was subsequently transferred over to our service for evaluation of mitral valve endocarditis. He appeared stable and on septic on admission to our service. Due to evidence of significant embolic phenomenon, he was offered surgical
intervention. Patient was transferred from [facility] to [facility] on 12/18.
Hospital course:
Patient was transferred from [facility] to [facility] on 12/18. He was taken to the CV OR on 12/20. He received a mitral valve replacement with #29 mitral send CABG x 4 LAD endarterectomy (MVR #29 Mitris CABG x4). After being
taken to the CV OR patient returned to the CVICU on dobutamine, Levophed, Precedex, and insulin. He was given 3 units of PRBCs and 1 platelets IntraOp and was given 2 units PRBCs in the CVICU on postop day 0. On 12/21 postoperative day #1 Levophed
and dobutamine was weaned off. [place] and arterial line were removed. He was diuresed with 40 mg of IV Lasix and given 2.5 mg of Coumadin. He was started also on aspirin, beta-blockers, and Plavix. On 12/22 postoperative day #2 patient
converted into A-fib with RVR and was hypotensive. He was temporarily started on Levophed and an amiodarone infusion. His hemoglobin was 7.6 and he was transfused with 1 unit of PRBCs and was given 40 mg of IV Lasix. Levophed was weaned off wires
were pulled and chest tubes were discontinued. Midodrine was started for hypotension and 2.5 Coumadin was redosed. On 12/23 postoperative day #3 patient had a 3-second conversion pause in and out of A-fib throughout the day. A right upper
extremity PICC line was placed for long-term antibiotics. Repeat echocardiogram was performed. And due to having positive orthostatics patient's midodrine was uptitrated to 10 mg 3 times daily. On 12/24 postoperative day #4 patient was sinus tach
and converted to atrial flutter from 30s to 40 bpm and patient was taken to the EP lab and a Medtronic permanent pacemaker was placed. INR was 1.56 Plavix was discontinued and Coumadin and aspirin were continued. On 12/25 postoperative day 1 #5
Coumadin was redosed and amiodarone was increased patient was not started on beta-blockers at that time. On 12/26 postoperative day #6 patient was getting ready to get out of bed and he complained of some dizziness. He sat on the edge of the bed
and lost consciousness and fell onto the floor. A c-collar was placed and patient was taken for a stat CT head. CT head revealed a new intra parenchymal bleed and patient was transferred to [facility] for trauma and neuro ICU care.
Discharge Plan
-
Patient Disposition: Acute Care Hospital
Condition: Critical
Discharge Orders:
Discharge Patient (As Directed); Ordered 12/27/23
Ordered By: Magdalena Wisdom
Discharge Date and Time
Print Language: UPPER SORBIAN
--- NOTE | 2023-12-27 10:00 | PTCARENOTE ---
Addendum entered by Jen Soria, ROZ 12/27/23 10:50:
Pt taken for STAT CT of the head & then returned to . IV Vitamin K administered as ordered. New L FA IV line placed & (2) units of FFP administered as ordered. Pt also taken for STAT CT of ABD/Spine. Pt prepared for transport to [facility].
Original Note:
This RN in to see pt at 0730 to obtain VS. Pt drowsy but arousable, AAOx3. Pt's VS stable, T 97.2 Ax, HR 64, BP 115/65, R 18, SpO2 98% RA. Pt assisted OOB X2P w/RW to scale at bedside. Pt weighed & pt declined sitting OOB to . While this RN was
adjusting bed & the PCT was getting a bed pad from counter in the room, pt was standing on the scale, holding both side rails, when pt appeared to pass out & fall to the floor. This occured at approx 0735. This RN attempted to stop the fall, but pt
did hit his head. Pt initially unarousable; Rapid response called & pt placed back in bed by staff. Pt arousable a short time later & said that he 'fainted'. Pt didn't recall events immediately afterwards. Cervical collar placed on pt, blood work
drawn, EKG completed, & pt taken in bed for a STAT CT head of
--- NOTE | 2023-12-27 10:24 | CM ---
Reviewed chart. Mr. Khalil was transferred to the [facility] for further care.
[2023-12-27] MEDS: NOVOLOG FLEXPEN-MODERATE RESISTANCE SC (10:29)
[2023-12-27 19:59] LABS: COVID-19 Antigen Negative (Negative)
--- NOTE | 2023-12-28 09:49 | W.PN.UPDATE ---
Update Note
Progress Note Update
CDI QUERY RESPONSE
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
== END 2023-12-27 11:30 | disposition short-term general hospital (02) | DRG 217 ==
LOC: CVICU 17:28
PROVIDERS: Anesthesiology; Clinical Nurse Specialist Acute Care; Internal Medicine Cardiovascular Disease; Nurse Practitioner; Nurse Practitioner Adult Health; Physician Assistant Medical; ADMITTING PHYSICIAN Thoracic Surgery (Cardiothoracic Vascular Surgery); CONSULT PHYSICIAN Internal Medicine Critical Care Medicine; FAMILY PHYSICIAN Internal Medicine; OTHER PHYSICIAN Internal Medicine Cardiovascular Disease; OTHER PHYSICIAN Internal Medicine Infectious Disease; OTHER PHYSICIAN Surgery Vascular Surgery
PROC: B2111ZZ Fluoroscopy of Multiple Coronary Arteries using Low Osmolar Contrast (ICD-10-PCS; 2023-12-20)
PROC: 4A023N7 Measurement of Cardiac Sampling and Pressure, Left Heart, Percutaneous Approach (ICD-10-PCS; 2023-12-20)
PROC: 30233K1 Transfusion of Nonautologous Frozen Plasma into Peripheral Vein, Percutaneous Approach (ICD-10-PCS; 2023-12-21)
PROC: B24BZZ4 Ultrasonography of Heart with Aorta, Transesophageal (ICD-10-PCS; 2023-12-21)
PROC: 06BP4ZZ Excision of Right Saphenous Vein, Percutaneous Endoscopic Approach (ICD-10-PCS; 2023-12-21)
PROC: 02100Z9 Bypass Coronary Artery, One Artery from Left Internal Mammary, Open Approach (ICD-10-PCS; 2023-12-21)
PROC: 30233R1 Transfusion of Nonautologous Platelets into Peripheral Vein, Percutaneous Approach (ICD-10-PCS; 2023-12-21)
PROC: 5A1221Z Performance of Cardiac Output, Continuous (ICD-10-PCS; 2023-12-21)
PROC: 021209W Bypass Coronary Artery, Three Arteries from Aorta with Autologous Venous Tissue, Open Approach (ICD-10-PCS; 2023-12-21)
PROC: 30233N1 Transfusion of Nonautologous Red Blood Cells into Peripheral Vein, Percutaneous Approach (ICD-10-PCS; 2023-12-21)
PROC: 02RG08Z Replacement of Mitral Valve with Zooplastic Tissue, Open Approach (ICD-10-PCS; 2023-12-21)
PROC: 02HV33Z Insertion of Infusion Device into Superior Vena Cava, Percutaneous Approach (ICD-10-PCS; 2023-12-24)
PROC: 02HK3JZ Insertion of Pacemaker Lead into Right Ventricle, Percutaneous Approach (ICD-10-PCS; 2023-12-25)
PROC: 0JH606Z Insertion of Pacemaker, Dual Chamber into Chest Subcutaneous Tissue and Fascia, Open Approach (ICD-10-PCS; 2023-12-25)
PROC: 02H63JZ Insertion of Pacemaker Lead into Right Atrium, Percutaneous Approach (ICD-10-PCS; 2023-12-25)
DX: I33.0 Acute and subacute infective endocarditis (principal); D62 Acute posthemorrhagic anemia; S06.6X0A Traumatic subarachnoid hemorrhage without loss of consciousness, initial encounter; S22.32XA Fracture of one rib, left side, initial encounter for closed fracture; I97.190 Other postprocedural cardiac functional disturbances following cardiac surgery; I74.3 Embolism and thrombosis of arteries of the lower extremities; D68.8 Other specified coagulation defects; J98.11 Atelectasis; I48.92 Unspecified atrial flutter; I34.0 Nonrheumatic mitral (valve) insufficiency; I25.119 Atherosclerotic heart disease of native coronary artery with unspecified angina pectoris; I70.222 Atherosclerosis of native arteries of extremities with rest pain, left leg; E11.51 Type 2 diabetes mellitus with diabetic peripheral angiopathy without gangrene; W06.XXXA Fall from bed, initial encounter; Y83.2 Surgical operation with anastomosis, bypass or graft as the cause of abnormal reaction of the patient, or of later complication, without mention of misadventure at the time of the procedure; I10 Essential (primary) hypertension; E78.00 Pure hypercholesterolemia, unspecified; R63.4 Abnormal weight loss; R63.0 Anorexia; I48.0 Paroxysmal atrial fibrillation; D73.5 Infarction of spleen; I25.82 Chronic total occlusion of coronary artery; D69.59 Other secondary thrombocytopenia; N28.9 Disorder of kidney and ureter, unspecified; E86.1 Hypovolemia; E87.70 Fluid overload, unspecified; R00.1 Bradycardia, unspecified; I95.1 Orthostatic hypotension; I44.30 Unspecified atrioventricular block; Z11.52 Encounter for screening for COVID-19; Z68.24 Body mass index [BMI] 24.0-24.9, adult; Z79.4 Long term (current) use of insulin; Z79.82 Long term (current) use of aspirin; Z79.899 Other long term (current) drug therapy; Z87.891 Personal history of nicotine dependence; Z95.5 Presence of coronary angioplasty implant and graft
CPT/HCPCS: 88305; 93308; 33208; 70355; 70450; 71045; 71046; 71250; 71275; 72125; 74174; 74176; 75635; 80048; 80053; 80076; 80202; 81003; 81015; 82248; 82330; 82565; 82805; 82810; 82947; 82962; 83036; 83615; 83735; 84132; 84302; 84520; 85014; 85018; 85027; 85049; 85610; 85652; 85730; 86140; 86850; 86900; 86901; 86920; 87040; 87070; 87075; 87086; 87102; 87176; 87205; 87811; 93005; 93312; 93320; 93321; 93325; 93454; 93880; 93922; 93925; 94002; 94003; 97116; 97163; 97166; 97530; 97535; C1785; C1892; C1894; C1898; J2916; P9016; P9045; P9059; P9073; Q9957; Q9967

== ENCOUNTER → 2024-09-01 12:36 | Outpatient (REF) | payer MEDICARE, BC, SELFPAY | LOC: RCS 12:36 | PROVIDERS: ATTENDING PHYSICIAN Thoracic Surgery (Cardiothoracic Vascular Surgery); FAMILY PHYSICIAN Internal Medicine; OTHER PHYSICIAN Internal Medicine; OTHER PHYSICIAN Internal Medicine Cardiovascular Disease | DX: Z95.1 Presence of aortocoronary bypass graft (principal); Z95.2 Presence of prosthetic heart valve | CPT/HCPCS: 93306 ==